=== PATIENT | female | born 1950 | race American Indian/Alaskan Native ===

== ENCOUNTER 2016-10-03 16:59 | Emergency (ER) | payer SELFPAY ==
[2016-10-03 18:29] VITALS: BP 134/91
--- NOTE | 2016-10-03 20:14 | XRay Report ---
FINAL REPORT PROCEDURE: XR FOOT 3 LT TECHNIQUE: LEFT foot radiographs, AP, lateral, and oblique views. CPT 66690 HISTORY: FOOT / ANKLE PAIN AND SWELLING COMPARISON: No prior studies are available for comparison. FINDINGS: Fracture (s) and/or Dislocation(s): None . Alignment: Normal . Joint space(s): Spurring of the talonavicular articulation. Soft tissues: Normal . Bone mineralization: Normal . Foreign bodies: None . Calcaneal spurring: Plantar heel spur. IMPRESSION: No fracture. There is spurring..
[2016-10-03] MEDS ORDERED: ULTRAM PO ONE (21:58)
--- NOTE | 2016-10-03 21:59 | Emergency Department Report ---
ED Lower Extremity HPI - General Chief Complaint: Extremity Injury, Lower Stated Complaint: HEADACHE/LEFT SIDE/FOOT PAIN Time Seen by Provider: 10/03/16 21:54 Source: patient Mode of arrival: Ambulatory Limitations: No Limitations - History of Present Illness MD Complaint: foot injury (foot pain chronic 3 yrs worse for past 3 months ) - Related Data Home Medications Medication Instructions Recorded Confirmed Last Taken Lisinopril/Hydrochlorothiazide 1 tab PO DAILY 06/19/14 06/19/14 06/19/14 [Zestoretic 20-25 mg] Previous Rx's Medication Instructions Recorded Last Taken Type Butalb/Acetamin/Caff 50-325-40 1 each PO Q4H PRN #12 tablet 11/07/13 Unknown Rx [Fioricet] Ibuprofen [Motrin 800 MG tab] 800 mg PO TID PRN #30 tablet 11/07/13 Unknown Rx traMADol [Ultram 50 MG tab] 50 mg PO Q6HR PRN #20 tablet 11/07/13 Unknown Rx amLODIPine [Norvasc] 5 mg PO DAILY #30 tab 06/19/14 Unknown Rx Metoprolol [Lopressor TAB] 25 mg PO BID #60 tablet 01/31/15 Unknown Rx HYDROcodone/APAP 5-325 [[place] 1 each PO Q6HR PRN #10 tablet 09/20/15 Unknown Rx 5-325 mg TAB] Lisinopril/Hydrochlorothiazide 1 tab PO QDAY #30 tab 09/20/15 Unknown Rx [Zestoretic 20-25 mg] predniSONE [Deltasone] 40 mg PO QDAY #5 tab 10/03/16 Unknown Rx traMADol [Ultram 50 MG tab] 50 mg PO Q8H PRN #15 tablet 10/03/16 Unknown Rx Allergies Allergy/AdvReac Type Severity Reaction Status Date / Time No Known Allergies Allergy Verified 10/03/16 18:23 ED Review of Systems ROS: Stated complaint: HEADACHE/LEFT SIDE/FOOT PAIN Other details as noted in HPI Constitutional: denies: chills, fever Eyes: denies: eye pain, eye discharge, vision change ENT: denies: ear pain, throat pain Respiratory: denies: cough, shortness of breath, wheezing Cardiovascular: denies: chest pain, palpitations Endocrine: no symptoms reported Gastrointestinal: denies: abdominal pain, nausea, diarrhea Genitourinary: denies: urgency, dysuria, discharge Musculoskeletal: myalgia, other (left foot pain ) Skin: denies: rash, lesions Neurological: denies: headache, weakness, paresthesias Psychiatric: denies: anxiety, depression Hematological/Lymphatic: denies: easy bleeding, easy bruising ED Past Medical Hx - Past Medical History Hx Hypertension: Yes Hx Congestive Heart Failure: No Hx Diabetes: No Hx Headaches / Migraines: Yes Hx Asthma: No Hx COPD: No Additional medical history: chronic back pain - Surgical History Past Surgical History?: No - Social History Smoking Status: Current Every Day Smoker Substance Use Type: Prescribed - Medications Home Medications: Home Medications Medication Instructions Recorded Confirmed Last Taken Type Butalb/Acetamin/Caff 50-325-40 1 each PO Q4H PRN #12 tablet 11/07/13 06/19/14 Unknown Rx [Fioricet] Ibuprofen [Motrin 800 MG tab] 800 mg PO TID PRN #30 tablet 11/07/13 06/19/14 Unknown Rx traMADol [Ultram 50 MG tab] 50 mg PO Q6HR PRN #20 tablet 11/07/13 06/19/14 Unknown Rx Lisinopril/Hydrochlorothiazide 1 tab PO DAILY 06/19/14 06/19/14 06/19/14 History [Zestoretic 20-25 mg] amLODIPine [Norvasc] 5 mg PO DAILY #30 tab 06/19/14 Unknown Rx Metoprolol [Lopressor TAB] 25 mg PO BID #60 tablet 01/31/15 Unknown Rx HYDROcodone/APAP 5-325 [[place] 1 each PO Q6HR PRN #10 tablet 09/20/15 Unknown Rx 5-325 mg TAB] Lisinopril/Hydrochlorothiazide 1 tab PO QDAY #30 tab 09/20/15 Unknown Rx [Zestoretic 20-25 mg] predniSONE [Deltasone] 40 mg PO QDAY #5 tab 10/03/16 Unknown Rx traMADol [Ultram 50 MG tab] 50 mg PO Q8H PRN #15 tablet 10/03/16 Unknown Rx ED Physical Exam - General Limitations: No Limitations General appearance: alert, in no apparent distress - Head Head exam: Present: atraumatic, normocephalic - Eye Eye exam: Present: normal appearance - ENT ENT exam: Present: mucous membranes moist - Neck Neck exam: Present: normal inspection - Respiratory Respiratory exam: Present: normal lung sounds bilaterally. Absent: respiratory distress - Cardiovascular Cardiovascular Exam: Present: regular rate, normal rhythm. Absent: systolic murmur, diastolic murmur, rubs, gallop - GI/Abdominal GI/Abdominal exam: Present: soft, normal bowel sounds - Rectal Rectal exam: Present: deferred - Expanded Lower Extremity Exam Right Upper Leg exam: Present: normal inspection, full ROM. Absent: tenderness Knee exam: Present: normal inspection, full ROM. Absent: tenderness Lower Leg exam: Present: normal inspection, full ROM. Absent: tenderness Ankle exam: Present: normal inspection, full ROM, tenderness, swelling Foot/Toe exam: Present: tenderness, swelling, calcaneal tenderness. Absent: abrasion, laceration, ecchymosis, deformity, crepidus, dislocation, erythema, amputation, puncture wound, foreign body, tenderness at base of 5th metatarsal, nail avulsion, subungual hematoma Neuro vascular tendon exam: Present: no vascular compromise. Absent: pulse deficit, abnormal cap refill, motor deficit, sensory deficit, tendon deficit ( negative daniels's test), extremity cold to touch, pallor, abnormal 2-point discrimination, decreased fine/light touch, foot drop, peroneal nerve deficit, significant pain with passive ROM of distal joint Gait: Positive: observed and limited by pain - Back Exam Back exam: Present: normal inspection - Neurological Exam Neurological exam: Present: alert, oriented X3 - Psychiatric Psychiatric exam: Present: normal affect, normal mood - Skin Skin exam: Present: warm, dry, intact, normal color. Absent: rash ED Course Vital Signs 10/03/16 18:26 Temperature 98.5 F Pulse Rate 83 Respiratory 17 Rate Blood Pressure 134/91 O2 Sat by Pulse 97 Oximetry ED Lower Extremity MDM - Radiology Data Radiology results: report reviewed left calcaneal heel spurs , mild soft tissue swelling - Medical Decision Making pt is a 65 y/o aaf with hx of htn, migraine headache, chronic foot pain x 3 yrs present for exacerbation of same over past 3 months pt denies new injury no fall no trauma, pain described as 5/10 aching heel radiating to left lateral ankle exam: mild swelling left lateral ankle , heel pain to palpation plantar region tenderness to palpation negative daniels's , ppepb+2 foot is not hot to touch pronation supination with mild pain reproduction, calcaneal palpation intensifies pain xray foot , calcaneal spurs , plan: tramadol , short burst steriods, follow up with podiatry for evaluation and treatment of heel spurs, ortho shoe for comfort, recommended heal/shoe inserts, pt remain ambulatory with minimal pain. Dx heel spurs, plantar fascities no symptoms of rupture pt verbalized agreement and understading with discharge plan. - Differential Diagnosis heel spurs, plantar fascitis Critical care attestation.: If time is entered above; I have spent that time in minutes in the direct care of this critically ill patient, excluding procedure time. ED Disposition Clinical Impression: Plantar fasciitis of left foot Disposition: - TO HOME OR SELFCARE Is pt being admited?: No Does the pt Need Aspirin: No Condition: Good Instructions: Plantar Fasciitis (ED) Additional Instructions: follow up with podiatry as directed Prescriptions: predniSONE [Deltasone] 40 mg PO QDAY #5 tab traMADol [Ultram 50 MG tab] 50 mg PO Q8H PRN #15 tablet PRN Reason: Pain Referrals: PRIMARY CARE, [Primary Care Provider] - 3-5 Days Time of Disposition: 22:11
[2016-10-03] MEDS ORDERED: DELTASONE PO ONE (22:00)
== END 2016-10-03 22:33 | disposition home or self-care (01) ==
LOC: ED 16:59
DX: M72.2 Plantar fascial fibromatosis (principal); G43.909 Migraine, unspecified, not intractable, without status migrainosus; G89.29 Other chronic pain; F17.200 Nicotine dependence, unspecified, uncomplicated; I10 Essential (primary) hypertension
CPT/HCPCS: 73630; 99283; J7512

== ENCOUNTER 2016-10-16 11:56 | Emergency (ER) | payer MEDICARE ==
[2016-10-16 12:52] LABS: Basophils % (Auto) 0.6 % (0.0-1.8); Eosinophils % (Auto) 1.1 % (0.0-4.3); Hematocrit 40.3 % (30.3-42.9); Hemoglobin 12.9 gm/dl (10.1-14.3); Mean Corpuscular HGB Conc 32 % (30-34); Mean Corpuscular Hemoglobin 30 pg (28-32); Mean Corpuscular Volume 94 fl (79-97); Platelet Count 279 K/mm3 (140-440); Red Blood Count 4.31 M/mm3 (3.65-5.03); Red Cell Distribution Width 13.3 % (13.2-15.2); White Blood Count 11.2 K/mm3 (4.5-11.0)
[2016-10-16 13:04] LABS: INR 0.9 (0.87-1.13)
[2016-10-16 13:05] LABS: Partial Thromboplastin Time 29.6 Sec. (24.2-36.6)
[2016-10-16 13:12] LABS: Anion Gap 19 mmol/L; Blood Urea Nitrogen 22 mg/dL (7-17); Calcium 9.8 mg/dL (8.4-10.2); Carbon Dioxide 25 mmol/L (22-30); Chloride 103.1 mmol/L (98-107); Glucose 97 mg/dL (65-100); Potassium 4.5 mmol/L (3.6-5.0); Sodium 143 mmol/L (137-145)
--- NOTE | 2016-10-16 14:17 | Cat Scan Report ---
CT HEAD WITHOUT CONTRAST: HISTORY: Headache. Serial contiguous axial images were obtained through the cranium. Intravenous contrast material was not administered. The ventricles are normal in size and appearance. There is no mass effect or midline shift. No areas of abnormally increased or decreased attenuation are seen. No mass lesion is seen. The mastoid air cells and visualized portions of the sinuses are normal. IMPRESSION: Cranial CT scan within normal limits. No change since 09/20/15.
[2016-10-16] MEDS ORDERED: APRESOLINE IV ONE (16:58)
[2016-10-16] MEDS ORDERED: MORPHINE IV ONE ×2 (16:58→20:11)
[2016-10-16] MEDS ORDERED: ZOFRAN IV ONE (16:58)
[2016-10-16 17:26] VITALS: BP 161/108
--- NOTE | 2016-10-16 18:12 | Cat Scan Report ---
FINAL REPORT PROCEDURE: CT HEAD/BRAIN WO CON TECHNIQUE: Computerized tomography of the head was performed without contrast material. HISTORY: Headache and hypertension COMPARISON: 09/20/2015 FINDINGS: No CT evidence of intracranial mass, hemorrhage, acute territorial infarction, or hydrocephalus. The intracranial arteries are symmetric in density. The calvarium is intact. Visualized paranasal sinuses and mastoids are aerated. IMPRESSION: No CT evidence of acute abnormality
--- NOTE | 2016-10-16 18:33 | Cat Scan Report ---
FINAL REPORT PROCEDURE: CT ABDOMEN PELVIS WO CON TECHNIQUE: Computerized axial tomography of the abdomen and pelvis was performed without intravenous contrast. This study is performed without intravascular contrast material and its sensitivity for abdominal and pelvic pathology, including neoplasms, inflammation, abscess, free fluid, thrombosis, arterial dissection and infarction, is reduced compared with a contrast enhanced study. HISTORY: Abdominal pain COMPARISON: No prior studies are available for comparison. FINDINGS: Visualized lower thorax: No acute abnormality. Liver: There are 2 circumscribed low-density lesions in the liver, compatible with cysts. Spleen: Normal size and attenuation. Gallbladder and biliary system: Gallbladder is present. The common bile duct appears dilated, measuring up to 12 millimeters in caliber. Pancreas: Normal. Adrenals: There is a low-attenuation 18 millimeter left adrenal nodule, which is likely benign. Kidneys: Bilateral renal low-density lesions are likely related to cysts. No hydronephrosis or urolithiasis. GI tract: There is sigmoid diverticulosis. No acute inflammation is seen. The appendix is normal in appearance. No bowel obstruction or acute inflammation is seen. Lymph nodes and mesentery: Normal. Vasculature: Normal. Bladder: Normal. Reproductive organs: Grossly unremarkable. Peritoneum: No free fluid. Musculoskeletal structures: Significant right hip joint osteoarthritis. Degenerative disc changes and facet arthritic changes of the lumbar spine. Other: None. IMPRESSION: No hydronephrosis or urolithiasis. No acute inflammatory process is seen. Common bile duct appears dilated. Further evaluation with ultrasound could be obtained. Correlate with lab values
[2016-10-16] MEDS ORDERED: NACL 0.9% 1000 ML 1,000 ML IV ONE (20:11)
[2016-10-16] MEDS ORDERED: REGLAN IV ONE (20:11)
--- NOTE | 2016-10-16 20:16 | Emergency Department Report ---
ED Headache HPI - General Chief Complaint: Headache Stated Complaint: HEADACHE Time Seen by Provider: 10/16/16 19:57 Source: patient Exam Limitations: no limitations - History of Present Illness Initial Comments: 65-year-old female here with complaint of 2 issues. #1 is abdominal pain which she says she's had over the course of the last week. She describes it as keys pain tender all over her abdomen she's had some vomiting. The pain does not radiate anywhere she has had the pain before. No fevers or chills. Her second complaint is a headache for which she's had for 1 week as well. She was recently treated with oral oxycodone which seemed to help slightly but it the headache has returned. She has no neck stiffness or photophobia. Timing/Duration: 1 week Quality: moderate Head Injury Location: global Recent Head Trauma: no recent headache/trauma, chronic headaches Associated Symptoms: denies: confusion, fatigue, facial pain, loss of consciousness, nausea/vomiting, nasal drainage, seizures, sinus infection, stiff neck, vision changes Allergies/Adverse Reactions: Allergies No Known Allergies Allergy (Verified 10/03/16 18:23) Home Medications: Ambulatory Orders Ibuprofen [Motrin 800 MG tab] 800 mg PO TID PRN #30 tablet 11/07/13 traMADol [Ultram 50 MG tab] 50 mg PO Q6HR PRN #20 tablet 11/07/13 Lisinopril/Hydrochlorothiazide [Zestoretic 20-25 mg] 1 tab PO DAILY 06/19/14 amLODIPine [Norvasc] 5 mg PO DAILY #30 tab 06/19/14 Metoprolol [Lopressor TAB] 25 mg PO BID #60 tablet 01/31/15 HYDROcodone/APAP 5-325 [[place] 5-325 mg TAB] 1 each PO Q6HR PRN #10 tablet Lisinopril/Hydrochlorothiazide [Zestoretic 20-25 mg] 1 tab PO QDAY #30 tab 09/19 predniSONE [Deltasone] 40 mg PO QDAY #5 tab 10/03/16 traMADol [Ultram 50 MG tab] 50 mg PO Q8H PRN #15 tablet 10/03/16 Butalb/Acetamin/Caff 50-325-40 [Fioricet] 1 each PO Q4H PRN #12 tablet 10/16/16 Diclofenac Sodium 75 mg PO Q12HR PRN #30 tab 10/16/16 Ondansetron [Zofran TAB] 4 mg PO Q8HR PRN #10 tablet 10/16/16 ED Review of Systems ROS: Stated complaint: HEADACHE Other details as noted in HPI Constitutional: denies: chills, fever, malaise, weakness Eyes: denies: eye pain, eye discharge, vision change ENT: denies: ear pain, throat pain Respiratory: denies: cough, shortness of breath, wheezing Cardiovascular: denies: chest pain, palpitations Endocrine: no symptoms reported Gastrointestinal: abdominal pain, vomiting. denies: nausea, diarrhea Genitourinary: denies: urgency, dysuria, discharge Musculoskeletal: denies: back pain, joint swelling, arthralgia Skin: denies: rash, lesions Neurological: headache. denies: weakness, numbness, paresthesias, confusion Psychiatric: denies: anxiety, depression Hematological/Lymphatic: denies: easy bleeding, easy bruising ED Past Medical Hx - Past Medical History Previous Medical History?: Yes Hx Hypertension: Yes Hx Congestive Heart Failure: No Hx Diabetes: No Hx Headaches / Migraines: Yes Hx Asthma: No Hx COPD: No Additional medical history: chronic back pain - Surgical History Past Surgical History?: No - Family History Family history: hypertension - Social History Smoking Status: Current Every Day Smoker Substance Use Type: Alcohol, Prescribed - Medications Home Medications: Home Medications Medication Instructions Recorded Confirmed Last Taken Type Ibuprofen [Motrin 800 MG tab] 800 mg PO TID PRN #30 tablet 11/07/13 06/19/14 Unknown Rx traMADol [Ultram 50 MG tab] 50 mg PO Q6HR PRN #20 tablet 11/07/13 06/19/14 Unknown Rx Lisinopril/Hydrochlorothiazide 1 tab PO DAILY 06/19/14 06/19/14 06/19/14 History [Zestoretic 20-25 mg] amLODIPine [Norvasc] 5 mg PO DAILY #30 tab 06/19/14 Unknown Rx Metoprolol [Lopressor TAB] 25 mg PO BID #60 tablet 01/31/15 Unknown Rx HYDROcodone/APAP 5-325 [[place] 1 each PO Q6HR PRN #10 tablet 09/20/15 Unknown Rx 5-325 mg TAB] Lisinopril/Hydrochlorothiazide 1 tab PO QDAY #30 tab 09/20/15 Unknown Rx [Zestoretic 20-25 mg] predniSONE [Deltasone] 40 mg PO QDAY #5 tab 10/03/16 Unknown Rx traMADol [Ultram 50 MG tab] 50 mg PO Q8H PRN #15 tablet 10/03/16 Unknown Rx Butalb/Acetamin/Caff 50-325-40 1 each PO Q4H PRN #12 tablet 10/16/16 Unknown Rx [Fioricet] Diclofenac Sodium 75 mg PO Q12HR PRN #30 tab 10/16/16 Unknown Rx Ondansetron [Zofran TAB] 4 mg PO Q8HR PRN #10 tablet 10/16/16 Unknown Rx ED Physical Exam - General Limitations: No Limitations General appearance: alert, in no apparent distress - Head Head exam: Present: atraumatic, normocephalic - Eye Eye exam: Present: normal appearance - ENT ENT exam: Present: mucous membranes moist - Neck Neck exam: Present: normal inspection - Respiratory Respiratory exam: Present: normal lung sounds bilaterally. Absent: respiratory distress - Cardiovascular Cardiovascular Exam: Present: regular rate, normal rhythm. Absent: systolic murmur, diastolic murmur, rubs, gallop - GI/Abdominal GI/Abdominal exam: Present: soft, distended, tenderness (mild tenderness diffusely), normal bowel sounds. Absent: guarding, rebound - Extremities Exam Extremities exam: Present: normal inspection - Back Exam Back exam: Present: normal inspection - Neurological Exam Neurological exam: Present: alert, oriented X3 - Psychiatric Psychiatric exam: Present: normal affect, normal mood - Skin Skin exam: Present: warm, dry, intact, normal color. Absent: rash ED Course Vital Signs 10/16/16 10/16/16 10/16/16 11:59 16:41 17:19 Temperature 98.2 F Pulse Rate 95 H 92 H 84 Respiratory 20 16 Rate Blood Pressure 175/109 191/107 Blood Pressure 191/107 [Left] O2 Sat by Pulse 100 99 Oximetry 10/16/16 10/16/16 10/16/16 17:20 17:25 20:15 Temperature Pulse Rate 84 Respiratory 16 16 16 Rate Blood Pressure Blood Pressure 161/108 [Left] O2 Sat by Pulse 100 96 Oximetry ED Medical Decision Making - Lab Data Result diagrams: 10/16/16 12:36 10/16/16 12:36 Laboratory Results - last 24 hr 10/16/16 10/16/16 10/16/16 12:36 12:36 12:36 WBC 11.2 H RBC 4.31 Hgb 12.9 Hct 40.3 MCV 94 MCH 30 MCHC 32 RDW 13.3 Plt Count 279 Lymph % (Auto) 18.6 [place] % (Auto) 6.9 Eos % (Auto) 1.1 Baso % (Auto) 0.6 Lymph # 2.1 [place] # 0.8 Eos # 0.1 Baso # 0.1 Seg Neutrophils % 72.8 H Seg Neutrophils # 8.2 H PT 12.0 L INR 0.90 APTT 29.6 Thrombin Time Sodium 143 Potassium 4.5 Chloride 103.1 Carbon Dioxide 25 Anion Gap 19 BUN 22 H Creatinine 1.1 Estimated GFR > 60 BUN/Creatinine Ratio 20.00 Glucose 97 Calcium 9.8 Troponin T < 0.010 Lipase 10/16/16 10/16/16 12:36 12:36 WBC RBC Hgb Hct MCV MCH MCHC RDW Plt Count Lymph % (Auto) [place] % (Auto) Eos % (Auto) Baso % (Auto) Lymph # [place] # Eos # Baso # Seg Neutrophils % Seg Neutrophils # PT INR APTT Thrombin Time 13.7 L Sodium Potassium Chloride Carbon Dioxide Anion Gap BUN Creatinine Estimated GFR BUN/Creatinine Ratio Glucose Calcium Troponin T Lipase 36 - Medical Decision Making Patient is a 65-year-old female here with headache and abdominal pain. Rectal exam is unremarkable. She does have a distended abdomen with mild tenderness but is otherwise well-appearing. White count is 11.2 but the rest of her workup is essentially negative. She has a negative head CT and a negative abdominal CT for acute pathology. She is nontender in the right upper quadrant and the findings on CT are inconsistent with her complaints. Pain improved with meds and fluids. Plan to discharge home. Portions of this chart were dictated with dictation software. There may be dictation errors contained within this note. Critical care attestation.: If time is entered above; I have spent that time in minutes in the direct care of this critically ill patient, excluding procedure time. ED Disposition Clinical Impression: Abdominal pain, Chronic headache Disposition: DC-01 TO HOME OR SELFCARE Is pt being admited?: No Does the pt Need Aspirin: No Condition: Stable Instructions: Acute Headache (ED), Abdominal Pain (ED) Prescriptions: Butalb/Acetamin/Caff 50-325-40 [Fioricet] 1 each PO Q4H PRN #12 tablet PRN Reason: Headache Diclofenac Sodium 75 mg PO Q12HR PRN #30 tab PRN Reason: Pain Ondansetron [Zofran TAB] 4 mg PO Q8HR PRN #10 tablet PRN Reason: Nausea Referrals: PRIMARY CARE,MD [Primary Care Provider] - 3-5 Days
== END 2016-10-16 22:17 | disposition home or self-care (01) ==
LOC: ED 11:56
DX: R10.9 Unspecified abdominal pain (principal); R51 Headache; G89.29 Other chronic pain; I10 Essential (primary) hypertension; G43.909 Migraine, unspecified, not intractable, without status migrainosus; F17.200 Nicotine dependence, unspecified, uncomplicated
CPT/HCPCS: 36415; 70450; 74176; 80048; 82962; 83690; 84484; 85025; 85610; 85670; 85730; 93005; 93010; 96361; 96374; 96375; 96376; 99285; J0360; J2270; J2405; J2765; J7030

== ENCOUNTER 2016-11-07 10:40 | Emergency (ER) | payer MEDICARE ==
[2016-11-07 11:54] LABS: Basophils % (Auto) 0.6 % (0.0-1.8); Eosinophils % (Auto) 0.7 % (0.0-4.3); Hematocrit 41.2 % (30.3-42.9); Hemoglobin 13.9 gm/dl (10.1-14.3); Mean Corpuscular HGB Conc 34 % (30-34); Mean Corpuscular Hemoglobin 31 pg (28-32); Mean Corpuscular Volume 94 fl (79-97); Platelet Count 284 K/mm3 (140-440); Red Blood Count 4.41 M/mm3 (3.65-5.03); White Blood Count 8.5 K/mm3 (4.5-11.0)
[2016-11-07 12:15] LABS: Alanine Aminotransferase 9 units/L (7-56); Albumin/Globulin Ratio 1.1 %; Alkaline Phosphatase 74 units/L (35-129); Anion Gap 16 mmol/L; BUN/Creatinine Ratio 12.22; Blood Urea Nitrogen 11 mg/dL (7-17); Calcium 10.3 mg/dL (8.4-10.2); Carbon Dioxide 32 mmol/L (22-30); Chloride 96.9 mmol/L (98-107); Glucose 107 mg/dL (65-100); Lipase 26 units/L (13-60); Potassium 4.4 mmol/L (3.6-5.0); Sodium 140 mmol/L (137-145); Total Protein 7.6 g/dL (6.3-8.2)
[2016-11-07 13:20] LABS: Bacteria,Urine 1+ /HPF (Negative); Bilirubin,Urine NEG (Negative); Blood,Urine NEG (Negative); Ketones,Urine NEG (Negative); Leukocyte Esterase,Urine NEG (Negative); Nitrite,Urine NEG (Negative)
[2016-11-07] MEDS ORDERED: PERCOCET 5/325 PO ONE (16:26)
--- NOTE | 2016-11-07 16:33 | Emergency Department Report ---
ED General Adult HPI - General Chief complaint: Back Pain/Injury Stated complaint: BACAK PAIN / SWOLLEN FEET Time Seen by Provider: 11/07/16 15:06 Source: patient Mode of arrival: Ambulatory Limitations: No Limitations - History of Present Illness Initial comments: Patient is a 66-year-old female who presents with lower back pain has been going on for the last 4 weeks. She states that the pain is a 7 out of 10 working and walking makes of back pain nothing makes the pain better. Patient' s pain does not radiate. Patient has also been trying pain to take over-the- counter pain medicines for her back pain. Patient also reports foot pain. Patient denies any trauma no LOC. She reports that she came to the ED because the pain has not gotten any better and she is having a hard time sleeping. Severity scale (0 -10): 8 - Related Data Home Medications Medication Instructions Recorded Confirmed Last Taken Lisinopril/Hydrochlorothiazide 1 tab PO DAILY 06/19/14 06/19/14 06/19/14 [Zestoretic 20-25 mg] Previous Rx's Medication Instructions Recorded Last Taken Type Ibuprofen [Motrin 800 MG tab] 800 mg PO TID PRN #30 tablet 11/07/13 Unknown Rx amLODIPine [Norvasc] 5 mg PO DAILY #30 tab 06/19/14 Unknown Rx Metoprolol [Lopressor TAB] 25 mg PO BID #60 tablet 01/31/15 Unknown Rx HYDROcodone/APAP 5-325 [[place] 1 each PO Q6HR PRN #10 tablet 09/20/15 Unknown Rx 5-325 mg TAB] Lisinopril/Hydrochlorothiazide 1 tab PO QDAY #30 tab 09/20/15 Unknown Rx [Zestoretic 20-25 mg] predniSONE [Deltasone] 40 mg PO QDAY #5 tab 10/03/16 Unknown Rx traMADol [Ultram 50 MG tab] 50 mg PO Q8H PRN #15 tablet 10/03/16 Unknown Rx Butalb/Acetamin/Caff 50-325-40 1 each PO Q4H PRN #12 tablet 10/16/16 Unknown Rx [Fioricet] Diclofenac Sodium 75 mg PO Q12HR PRN #30 tab 10/16/16 Unknown Rx Ondansetron [Zofran TAB] 4 mg PO Q8HR PRN #10 tablet 10/16/16 Unknown Rx traMADol [Ultram 50 MG tab] 50 mg PO Q6HR PRN #20 tablet 11/07/16 Unknown Rx Allergies Allergy/AdvReac Type Severity Reaction Status Date / Time No Known Allergies Allergy Verified 11/07/16 11:14 ED Review of Systems ROS: Stated complaint: BACAK PAIN / SWOLLEN FEET Other details as noted in HPI Constitutional: denies: chills, fever Eyes: denies: eye pain, eye discharge, vision change ENT: denies: ear pain, throat pain Respiratory: denies: cough, shortness of breath, wheezing Cardiovascular: denies: chest pain, palpitations Endocrine: no symptoms reported Gastrointestinal: denies: abdominal pain, nausea, diarrhea Genitourinary: denies: urgency, dysuria, discharge Musculoskeletal: as per HPI, other (left flank pain ) Skin: denies: rash, lesions Neurological: denies: headache, weakness, paresthesias Psychiatric: denies: anxiety, depression Hematological/Lymphatic: denies: easy bleeding, easy bruising ED Past Medical Hx - Past Medical History Hx Hypertension: Yes Hx Congestive Heart Failure: No Hx Diabetes: No Hx Headaches / Migraines: Yes Hx Asthma: No Hx COPD: No Additional medical history: chronic back pain - Surgical History Past Surgical History?: No - Social History Smoking Status: Former Smoker Substance Use Type: None - Medications Home Medications: Home Medications Medication Instructions Recorded Confirmed Last Taken Type Ibuprofen [Motrin 800 MG tab] 800 mg PO TID PRN #30 tablet 11/07/13 06/19/14 Unknown Rx Lisinopril/Hydrochlorothiazide 1 tab PO DAILY 06/19/14 06/19/14 06/19/14 History [Zestoretic 20-25 mg] amLODIPine [Norvasc] 5 mg PO DAILY #30 tab 06/19/14 Unknown Rx Metoprolol [Lopressor TAB] 25 mg PO BID #60 tablet 01/31/15 Unknown Rx HYDROcodone/APAP 5-325 [[place] 1 each PO Q6HR PRN #10 tablet 09/20/15 Unknown Rx 5-325 mg TAB] Lisinopril/Hydrochlorothiazide 1 tab PO QDAY #30 tab 09/20/15 Unknown Rx [Zestoretic 20-25 mg] predniSONE [Deltasone] 40 mg PO QDAY #5 tab 10/03/16 Unknown Rx traMADol [Ultram 50 MG tab] 50 mg PO Q8H PRN #15 tablet 10/03/16 Unknown Rx Butalb/Acetamin/Caff 50-325-40 1 each PO Q4H PRN #12 tablet 10/16/16 Unknown Rx [Fioricet] Diclofenac Sodium 75 mg PO Q12HR PRN #30 tab 10/16/16 Unknown Rx Ondansetron [Zofran TAB] 4 mg PO Q8HR PRN #10 tablet 10/16/16 Unknown Rx traMADol [Ultram 50 MG tab] 50 mg PO Q6HR PRN #20 tablet 11/07/16 Unknown Rx ED Physical Exam - General Limitations: No Limitations General appearance: alert - Head Head exam: Present: atraumatic, normocephalic - Eye Eye exam: Present: normal appearance, PERRL, EOMI - ENT ENT exam: Present: normal exam - Neck Neck exam: Present: normal inspection - Respiratory Respiratory exam: Present: normal lung sounds bilaterally - Cardiovascular Cardiovascular Exam: Present: regular rate - GI/Abdominal GI/Abdominal exam: Present: soft - Extremities Exam Extremities exam: Present: normal inspection - Back Exam Back exam: Present: normal inspection, other (tenderness to palpation ) - Neurological Exam Neurological exam: Present: alert, oriented X3 - Psychiatric Psychiatric exam: Present: normal affect, normal mood - Skin Skin exam: Present: warm, dry ED Course Vital Signs 11/07/16 11/07/16 11/07/16 11:07 12:53 13:00 Temperature 98.2 F Pulse Rate 83 Respiratory 18 Rate Blood Pressure 180/100 140/88 130/84 Blood Pressure [Left] O2 Sat by Pulse 95 96 Oximetry 11/07/16 11/07/16 11/07/16 13:05 13:06 14:00 Temperature 98.2 F Pulse Rate 90 Respiratory 16 16 Rate Blood Pressure 128/81 Blood Pressure 140/88 [Left] O2 Sat by Pulse 98 98 98 Oximetry 11/07/16 11/07/16 16:45 16:50 Temperature Pulse Rate 66 Respiratory 16 16 Rate Blood Pressure Blood Pressure 158/80 [Left] O2 Sat by Pulse 100 Oximetry - Reevaluation(s) Reevaluation #1: 11/07/16 18:53 Patient's flank pain has resolved it is a 0/10. Discussed with patient on with primary care provider she agrees the plan we'll send patient home with oral analgesic medication. ED Medical Decision Making - Lab Data Result diagrams: 11/07/16 11:36 11/07/16 11:36 - Medical Decision Making Cdx: Musculoskeletal pain Ddx: Renal colic, UTI, pancreatitis Will get CBC, CMP, UA, CT scan, pain control CT scan shows hepatic and renal cysts discussed with patient. Told patient to follow up with primary care provider. Patient agrees with plan. We'll send patient home with pain medication. Critical Care Time: No Critical care attestation.: If time is entered above; I have spent that time in minutes in the direct care of this critically ill patient, excluding procedure time. ED Disposition Clinical Impression: Left flank pain, chronic Disposition: DC-01 TO HOME OR SELFCARE Is pt being admited?: No Does the pt Need Aspirin: No Condition: Good Instructions: Flank Pain (ED) Additional Instructions: Return to emergency Department if pain does not subside. Please follow up with the primary care provider. Prescriptions: traMADol [Ultram 50 MG tab] 50 mg PO Q6HR PRN #20 tablet PRN Reason: Pain Referrals: PRIMARY CARE, [Primary Care Provider] - 3-5 Days Time of Disposition: 18:59
[2016-11-07 17:10] VITALS: BP 158/80
--- NOTE | 2016-11-07 17:48 | Cat Scan Report ---
FINAL REPORT PROCEDURE: CT abdomen and pelvis without contrast. TECHNIQUE: Computerized axial tomography of the abdomen and pelvis was performed without intravenous contrast. This study is performed without intravascular contrast material and its sensitivity for abdominal and pelvic pathology, including neoplasms, inflammation, abscess, free fluid, thrombosis, arterial dissection and infarction, is reduced compared with a contrast enhanced study. HISTORY: Flank pain. COMPARISON: CT abdomen and pelvis 10/16/2016. FINDINGS: There are small cysts in both lung bases. There are no pleural effusions. The heart size is normal. There is a focal mass of low attenuation within the right lobe of the liver. This measures 2.1 centimeters x 1.5 centimeters in cross-section. It is fairly sharply defined and probably represents a cyst. There are 2 additional smaller focal areas of diminished attenuation which may also represent cysts. The gallbladder is present. There is mild intrahepatic and moderate extrahepatic biliary dilatation. This could be further evaluated by ERCP or MRCP if clinically warranted. The pancreas is grossly normal. The spleen is unremarkable. There is mild thickening of the adrenal glands. Both kidneys appear normal in size and configuration. There is a small cortical mass arising posteriorly from the left kidney. There is also a small cortical mass arising superiorly from the right kidney. These masses may both represent simple cysts, but are incompletely evaluated on this unenhanced study. The abdominal aorta has a normal caliber. There is no retroperitoneal adenopathy. A normal appendix is visible. There are a few diverticula in the sigmoid colon. The bladder, uterus and adnexal regions are unremarkable. The regional skeleton appears intact. IMPRESSION: Small bibasilar lung cysts. Probable small hepatic cysts. Small bilateral renal masses which may represent cysts. Biliary dilatation. Mild sigmoid diverticulosis.
== END 2016-11-07 19:49 | disposition home or self-care (01) ==
LOC: ED 10:40
DX: G89.29 Other chronic pain (principal); R10.9 Unspecified abdominal pain; M54.5 Low back pain; I10 Essential (primary) hypertension; G43.909 Migraine, unspecified, not intractable, without status migrainosus; Z87.891 Personal history of nicotine dependence
CPT/HCPCS: 36415; 74176; 80053; 81001; 83690; 85025; 99284

== ENCOUNTER 2016-11-20 17:49 | Emergency (ER) | payer MEDICARE ==
[2016-11-20 19:53] LABS: Basophils % (Auto) 0.6 % (0.0-1.8); Eosinophils % (Auto) 0.7 % (0.0-4.3); Hematocrit 41.4 % (30.3-42.9); Hemoglobin 13.5 gm/dl (10.1-14.3); Mean Corpuscular HGB Conc 33 % (30-34); Mean Corpuscular Hemoglobin 31 pg (28-32); Mean Corpuscular Volume 94 fl (79-97); Platelet Count 260 K/mm3 (140-440); Red Blood Count 4.43 M/mm3 (3.65-5.03); Red Cell Distribution Width 14.2 % (13.2-15.2); White Blood Count 9.4 K/mm3 (4.5-11.0)
[2016-11-20 20:16] LABS: Alanine Aminotransferase 8 units/L (7-56); Albumin 3.9 g/dL (3.9-5); Albumin/Globulin Ratio 1.4 %; Alkaline Phosphatase 63 units/L (35-129); Anion Gap 16 mmol/L; Blood Urea Nitrogen 12 mg/dL (7-17); Calcium 9.3 mg/dL (8.4-10.2); Carbon Dioxide 35 mmol/L (22-30); Chloride 92.8 mmol/L (98-107); Glucose 137 mg/dL (65-100); Lipase 22 units/L (13-60); Potassium 3.2 mmol/L (3.6-5.0); Sodium 141 mmol/L (137-145); Total Protein 6.7 g/dL (6.3-8.2)
[2016-11-20 22:06] LABS: Bilirubin,Urine NEG (Negative); Blood,Urine NEG (Negative); Ketones,Urine NEG (Negative); Leukocyte Esterase,Urine NEG (Negative); Nitrite,Urine NEG (Negative); Protein,Urine <15 mg/dL mg/dL (Negative); WBC,Urine < 1.0 /HPF (0.0-6.0)
[2016-11-21] MEDS ORDERED: DILAUDID IV ONE (02:10)
[2016-11-21] MEDS ORDERED: ZOFRAN IV ONE (02:10)
[2016-11-21] MEDS ORDERED: K-DUR PO ONE (02:10)
[2016-11-21] MEDS ORDERED: TORADOL IV ONE (02:10)
--- NOTE | 2016-11-21 02:33 | Emergency Department Report ---
ED Abdominal Pain HPI - General Chief Complaint: Abdominal Pain Stated Complaint: ABDOMINAL/BACK PAIN Time Seen by Provider: 11/21/16 01:43 Source: patient, old records reviewed Mode of arrival: Ambulatory Limitations: No Limitations - History of Present Illness Initial Comments: 66-year-old female with a past medical history of headaches, hypertension, and chronic back pain presents to the hospital complains of left flank pain radiating to the left abdomen. Pain has been going on for at least 1 month. It is aching, intermittent, rated 8/10 in intensity. Increased to 10/10 today. Patient has been seen and evaluated in the ED on October 16 in November 07 for the same pain and had a CT abdomen and pelvis is time that did not reveal any acute abnormality. Patient had nausea with one episode of vomiting today. Denies diarrhea, constipation, fevers, hematuria, or dysuria. Patient received tramadol during her last visit here states it did not help. She then went to [place] and received Percocet 5 mg 12 tablets and states that helped her pain but she ran out of medication. - Related Data Home Medications Medication Instructions Recorded Confirmed Last Taken Lisinopril/Hydrochlorothiazide 1 tab PO DAILY 06/19/14 11/21/16 06/19/14 [Zestoretic 20-25 mg] Previous Rx's Medication Instructions Recorded Last Taken Type Ibuprofen [Motrin 800 MG tab] 800 mg PO TID PRN #30 tablet 11/07/13 Unknown Rx amLODIPine [Norvasc] 5 mg PO DAILY #30 tab 06/19/14 Unknown Rx Metoprolol [Lopressor TAB] 25 mg PO BID #60 tablet 01/31/15 Unknown Rx predniSONE [Deltasone] 40 mg PO QDAY #5 tab 10/03/16 Unknown Rx traMADol [Ultram 50 MG tab] 50 mg PO Q8H PRN #15 tablet 10/03/16 Unknown Rx Butalb/Acetamin/Caff 50-325-40 1 each PO Q4H PRN #12 tablet 10/16/16 Unknown Rx [Fioricet] Diclofenac Sodium 75 mg PO Q12HR PRN #30 tab 10/16/16 Unknown Rx Ondansetron [Zofran TAB] 4 mg PO Q8HR PRN #10 tablet 10/16/16 Unknown Rx traMADol [Ultram 50 MG tab] 50 mg PO Q6HR PRN #20 tablet 11/07/16 Unknown Rx HYDROcodone/APAP 5-325 [[place] 1 each PO Q6HR PRN #20 tablet 11/21/16 Unknown Rx 5-325 mg TAB] Ondansetron [Zofran Odt] 4 mg PO Q8HR PRN #20 tab.rapdis 11/21/16 Unknown Rx Allergies Allergy/AdvReac Type Severity Reaction Status Date / Time No Known Allergies Allergy Verified 11/07/16 11:14 ED Review of Systems ROS: Stated complaint: ABDOMINAL/BACK PAIN Other details as noted in HPI Comment: All other systems reviewed and negative Other: Constitutional: No fevers chills Eyes: No eye pain visual changes ENT: No ear pain or throat pain Neck: Denies pain Respiratory: Denies cough wheezing shortness of breath a Cardiovascular: Denies chest pain, palpitations, syncope GI: As per HPI : Denies dysuria, urinary frequency, or urgency Musculoskeletal: As per HPI Skin: Denies rash, lesions, erythema Neurologic: Denies headache, numbness, weakness Psychiatric: Denies suicidal ideation, hallucinations ED Past Medical Hx - Past Medical History Previous Medical History?: Yes Hx Hypertension: Yes Hx Congestive Heart Failure: No Hx Diabetes: No Hx Headaches / Migraines: Yes Hx Asthma: No Hx COPD: No Additional medical history: chronic back pain - Surgical History Past Surgical History?: No - Social History Smoking Status: Never Smoker Substance Use Type: None - Medications Home Medications: Home Medications Medication Instructions Recorded Confirmed Last Taken Type Ibuprofen [Motrin 800 MG tab] 800 mg PO TID PRN #30 tablet 11/07/13 11/21/16 Unknown Rx Lisinopril/Hydrochlorothiazide 1 tab PO DAILY 06/19/14 11/21/16 06/19/14 History [Zestoretic 20-25 mg] amLODIPine [Norvasc] 5 mg PO DAILY #30 tab 06/19/14 11/21/16 Unknown Rx Metoprolol [Lopressor TAB] 25 mg PO BID #60 tablet 01/31/15 11/21/16 Unknown Rx predniSONE [Deltasone] 40 mg PO QDAY #5 tab 10/03/16 11/21/16 Unknown Rx traMADol [Ultram 50 MG tab] 50 mg PO Q8H PRN #15 tablet 10/03/16 11/21/16 Unknown Rx Butalb/Acetamin/Caff 50-325-40 1 each PO Q4H PRN #12 tablet 10/16/16 11/21/16 Unknown Rx [Fioricet] Diclofenac Sodium 75 mg PO Q12HR PRN #30 tab 10/16/16 11/21/16 Unknown Rx Ondansetron [Zofran TAB] 4 mg PO Q8HR PRN #10 tablet 10/16/16 11/21/16 Unknown Rx traMADol [Ultram 50 MG tab] 50 mg PO Q6HR PRN #20 tablet 11/07/16 11/21/16 Unknown Rx HYDROcodone/APAP 5-325 [[place] 1 each PO Q6HR PRN #20 tablet 11/21/16 Unknown Rx 5-325 mg TAB] Ondansetron [Zofran Odt] 4 mg PO Q8HR PRN #20 tab.rapdis 11/21/16 Unknown Rx ED Physical Exam - General Limitations: No Limitations - Other Other exam information: General: No limitations, patient is alert in no acute distress Head exam: Atraumatic, normocephalic Eyes exam: Normal appearance, pupils equal reactive to light, extraocular movements intact ENT: Moist mucous membrane, normal oropharynx Neck exam: Normal inspection, full range of motion, no meningismus nontender Respiratory exam: Clear to auscultation bilateral, no wheezes, rales, crackles Cardiovascular: Normal rate and rhythm, normal heart sounds Abdomen: Soft, nondistended, left lower quadrant and left mid abdomen tenderness , with normal bowel sounds, no rebound, or guarding Extremity: Full range of motion normal inspection no deformity Back: Normal Inspection, full range of motion, left flank tenderness Neurologic: Alert, oriented x3, cranial nerves intact, no motor or sensory deficit Psychiatric: normal affect, normal mood Skin: Warm, dry, intact ED Course Vital Signs 11/20/16 11/21/16 11/21/16 19:31 00:21 00:30 Temperature 98.4 F Pulse Rate 106 H 93 H 86 Respiratory 20 11 L 12 Rate Blood Pressure 138/99 138/85 O2 Sat by Pulse 97 98 98 Oximetry 11/21/16 11/21/16 11/21/16 00:41 00:51 01:00 Temperature Pulse Rate 86 90 88 Respiratory 8 L 10 L 11 L Rate Blood Pressure 138/85 138/85 146/87 O2 Sat by Pulse 97 97 Oximetry 11/21/16 11/21/16 11/21/16 01:11 01:21 01:30 Temperature Pulse Rate 85 83 78 Respiratory 13 14 10 L Rate Blood Pressure 146/87 146/87 153/89 O2 Sat by Pulse 96 95 96 Oximetry 11/21/16 11/21/16 11/21/16 01:41 01:51 02:00 Temperature Pulse Rate 77 78 77 Respiratory 18 13 10 L Rate Blood Pressure 153/89 153/89 147/88 O2 Sat by Pulse 94 93 97 Oximetry 11/21/16 02:30 Temperature Pulse Rate 82 Respiratory 12 Rate Blood Pressure 140/81 O2 Sat by Pulse 98 Oximetry - Reevaluation(s) Reevaluation #1: 11/21/16 02:31 Dilaudid, Toradol, Zofran, and potassium ordered Reevaluation #2: 11/21/16 04:21 Patient reports feeling much better with ED treatment and feels well enough to go home ED Medical Decision Making - Lab Data Result diagrams: 11/20/16 19:40 11/20/16 19:40 Lab Results 11/20/16 11/20/16 11/20/16 Range/Units 19:40 19:40 21:30 WBC 9.4 (4.5-11.0) K/mm3 RBC 4.43 (3.65-5.03) M/mm3 Hgb 13.5 (10.1-14.3) gm/dl Hct 41.4 (30.3-42.9) % MCV 94 (79-97) fl MCH 31 (28-32) pg MCHC 33 (30-34) % RDW 14.2 (13.2-15.2) % Plt Count 260 (140-440) K/mm3 Lymph % (Auto) 28.1 (13.4-35.0) % [place] % (Auto) 6.6 (0.0-7.3) % Eos % (Auto) 0.7 (0.0-4.3) % Baso % (Auto) 0.6 (0.0-1.8) % Lymph # 2.6 (1.2-5.4) K/mm3 [place] # 0.6 (0.0-0.8) K/mm3 Eos # 0.1 (0.0-0.4) K/mm3 Baso # 0.1 (0.0-0.1) K/mm3 Seg Neutrophils % 64.0 (40.0-70.0) % Seg Neutrophils # 6.0 (1.8-7.7) K/mm3 Sodium 141 (137-145) mmol/L Potassium 3.2 L (3.6-5.0) mmol/L Chloride 92.8 L (98-107) mmol/L Carbon Dioxide 35 H (22-30) mmol/L Anion Gap 16 mmol/L BUN 12 (7-17) mg/dL Creatinine 1.1 (0.7-1.2) mg/dL Estimated GFR > 60 ml/min BUN/Creatinine Ratio 10.90 % Glucose 137 H (65-100) mg/dL Calcium 9.3 (8.4-10.2) mg/dL Total Bilirubin 0.20 (0.1-1.2) mg/dL AST 11 (5-40) units/L ALT 8 (7-56) units/L Alkaline Phosphatase 63 (35-129) units/L Total Protein 6.7 (6.3-8.2) g/dL Albumin 3.9 (3.9-5) g/dL Albumin/Globulin Ratio 1.4 % Lipase 22 (13-60) units/L Urine Color Yellow (Yellow) Urine Turbidity Clear (Clear) Urine pH 8.0 H (5.0-7.0) Ur Specific [place] 1.013 (1.003-1.030) Urine Protein <15 mg/dl (Negative) mg/dL Urine Glucose (UA) Neg (Negative) mg/dL Urine Ketones Neg (Negative) mg/dL Urine Blood Neg (Negative) Urine Nitrite Neg (Negative) Urine Bilirubin Neg (Negative) Urine Urobilinogen 4.0 (<2.0) mg/dL Ur Leukocyte Esterase Neg (Negative) Urine WBC (Auto) < 1.0 (0.0-6.0) /HPF Urine RBC (Auto) 2.0 (0.0-6.0) /HPF U Epithel Cells (Auto) < 1.0 (0-13.0) /HPF - EKG Data -: EKG Interpreted by Me (sinus rhythm rate 65 no acute elevation GA with T- wave inversions) - EKG Data When compared to previous EKG there are: previous EKG unavailable - Medical Decision Making Patient's pain is chronic since ongoing 1 month the patient had [address] scans last scan on November 07. Given the patient has normal urine and labs that do not think that repeat CT is indicated at this time. Patient treated symptomatically and follow reoccurs - Differential Diagnosis chronic pain, renal colic, UTI, diverticulitis Critical Care Time: No Critical care attestation.: If time is entered above; I have spent that time in minutes in the direct care of this critically ill patient, excluding procedure time. ED Disposition Clinical Impression: Chronic abdominal pain, Hypokalemia, Left flank pain, chronic Disposition: TO HOME OR SELFCARE Is pt being admited?: Yes Condition: Stable Instructions: Abdominal Pain (ED), Hypokalemia (ED) Additional Instructions: Take the medication as needed for pain. Follow up with your doctor. Return if symptoms worsen Prescriptions: HYDROcodone/APAP 5-325 [[place] 5-325 mg TAB] 1 each PO Q6HR PRN #20 tablet PRN Reason: Pain Ondansetron [Zofran Odt] 4 mg PO Q8HR PRN #20 tab.rapdis PRN Reason: Nausea And Vomiting Referrals: [facility]AR[facility] NEWELL [Other] - 3-5 Days Time of Disposition: 04:25
[2016-11-21 04:52] VITALS: BP 135/87
== END 2016-11-21 05:15 | disposition home or self-care (01) ==
LOC: ED 17:49
DX: E87.6 Hypokalemia (principal); R10.32 Left lower quadrant pain; G89.29 Other chronic pain; I10 Essential (primary) hypertension; G43.909 Migraine, unspecified, not intractable, without status migrainosus
CPT/HCPCS: 36415; 80053; 81001; 83690; 85025; 96374; 96375; 99283; J1170; J1885; J2405

== ENCOUNTER 2016-12-03 08:06 | Emergency (ER) | payer MEDICARE ==
[2016-12-03 08:12] VITALS: BP 169/122
[2016-12-03] MEDS ORDERED: TORADOL IM ONE (10:19)
[2016-12-03 11:21] LABS: Bilirubin,Urine NEG (Negative); Blood,Urine SM (Negative); Ketones,Urine NEG (Negative); Leukocyte Esterase,Urine MOD (Negative); Mucus,Urine FEW /HPF; Nitrite,Urine NEG (Negative)
--- NOTE | 2016-12-03 11:40 | Emergency Department Report ---
ED Back Pain/Injury HPI - General Chief Complaint: Back Pain/Injury Stated Complaint: BACK PAIN Time Seen by Provider: 12/03/16 10:09 Source: patient Limitations: No Limitations - History of Present Illness Initial Comments: Patient is a 66-year-old female with history of hypertension who presents due to left flank pain and left lower back pain times one month. Patient denies any falls or injury. Patient denies any dysuria, hematuria or frequency. Patient denies any numbness or tingling. Patient states that she has had x- rays of her back which have been normal. She denies any abdominal pain, nausea , vomiting or diarrhea. Patient denies any urinary or bowel incontinence, she denies any saddle anesthesia. MD Complaint: back pain Onset/Timin -: month(s) Similar Symptoms Previously: Yes Radiation: none Severity: moderate Quality: aching Improves With: none Worsens With: none Context: unknown Associated Symptoms: denies other symptoms - Related Data Home Medications Medication Instructions Recorded Confirmed Last Taken Lisinopril/Hydrochlorothiazide 1 tab PO DAILY 06/19/14 11/21/16 06/19/14 [Zestoretic 20-25 mg] Previous Rx's Medication Instructions Recorded Last Taken Type Ibuprofen [Motrin 800 MG tab] 800 mg PO TID PRN #30 tablet 11/07/13 Unknown Rx amLODIPine [Norvasc] 5 mg PO DAILY #30 tab 06/19/14 Unknown Rx Metoprolol [Lopressor TAB] 25 mg PO BID #60 tablet 01/31/15 Unknown Rx predniSONE [Deltasone] 40 mg PO QDAY #5 tab 10/03/16 Unknown Rx traMADol [Ultram 50 MG tab] 50 mg PO Q8H PRN #15 tablet 10/03/16 Unknown Rx Butalb/Acetamin/Caff 50-325-40 1 each PO Q4H PRN #12 tablet 10/16/16 Unknown Rx [Fioricet] Diclofenac Sodium 75 mg PO Q12HR PRN #30 tab 10/16/16 Unknown Rx Ondansetron [Zofran TAB] 4 mg PO Q8HR PRN #10 tablet 10/16/16 Unknown Rx traMADol [Ultram 50 MG tab] 50 mg PO Q6HR PRN #20 tablet 11/07/16 Unknown Rx HYDROcodone/APAP 5-325 [[place] 1 each PO Q6HR PRN #20 tablet 11/21/16 Unknown Rx 5-325 mg TAB] Ibuprofen [Motrin] 600 mg PO Q8H PRN #30 tablet 11/21/16 Unknown Rx Ondansetron [Zofran Odt] 4 mg PO Q8HR PRN #20 tab.rapdis 11/21/16 Unknown Rx Ciprofloxacin HCl [Ciprofloxacin 500 mg PO Q12H #14 tab 12/03/16 Unknown Rx TAB] Ibuprofen [Motrin 600 MG tab] 600 mg PO Q8H PRN #30 tablet 12/03/16 Unknown Rx Methocarbamol [Robaxin TAB] 750 mg PO Q8H PRN #15 tablet 12/03/16 Unknown Rx traMADol [Ultram 50 MG tab] 50 mg PO Q6HR PRN #15 tablet 12/03/16 Unknown Rx Allergies Allergy/AdvReac Type Severity Reaction Status Date / Time No Known Allergies Allergy Verified 11/07/16 11:14 ED Review of Systems ROS: Stated complaint: BACK PAIN Other details as noted in HPI Comment: All other systems reviewed and negative Constitutional: no symptoms reported Respiratory: no symptoms reported Gastrointestinal: denies: abdominal pain, nausea, vomiting, diarrhea Musculoskeletal: back pain. denies: joint swelling, arthralgia, myalgia Skin: denies: rash ED Past Medical Hx - Past Medical History chronic back pain Family history: hypertension ED Back Pain Physical Exam - Exam General: Vital signs noted. No distress. Alert and acting appropriately. Back/Abdomen: Yes Perilumbar Tenderness, Yes Flank Tenderness (left), No Abdominal Tenderness, No Perithoracic Tenderness, No Sacroiliac Tenderness, No Straight Leg Raise Pain Neuro: Yes Normal Sensation, Yes Normal Gait, No Motor Weakness ED Course Vital Signs 12/03/16 08:10 Temperature 97.8 F Pulse Rate 98 H Respiratory 16 Rate Blood Pressure 169/122 O2 Sat by Pulse 100 Oximetry Ed Back Pain Tests - Tests Tests: Normal UA ED Medical Decision Making - Lab Data Lab Results 12/03/16 Range/Units 10:42 Urine Color Yellow (Yellow) Urine Turbidity Clear (Clear) Urine pH 6.0 (5.0-7.0) Ur Specific [place] 1.015 (1.003-1.030) Urine Protein 30 mg/dl (Negative) mg/dL Urine Glucose (UA) Neg (Negative) mg/dL Urine Ketones Neg (Negative) mg/dL Urine Blood Sm (Negative) Urine Nitrite Neg (Negative) Urine Bilirubin Neg (Negative) Urine Urobilinogen 4.0 (<2.0) mg/dL Ur Leukocyte Esterase Mod (Negative) Urine WBC (Auto) 1.0 (0.0-6.0) /HPF Urine RBC (Auto) 4.0 (0.0-6.0) /HPF U Epithel Cells (Auto) 2.0 (0-13.0) /HPF Hyaline Casts 5 /LPF Urine Mucus Few /HPF - Medical Decision Making Patient was no acute distress, patient had mild tenderness with palpation of the left flank and left lower back pain has been going on for one month. Patient had no lumbar spine tenderness. Kidney stone is unlikely due to the duration of the back pain. Musculoskeletal pain is more likely. Patient was discharged with a prescription for Cipro to treat mild UTI. Patient was discharged with Robaxin, tramadol and ibuprofen. Patient was given information on follow-up with an orthopedic surgeon. - Differential Diagnosis lumbar strain, muscle spasms, UTI Critical care attestation.: If time is entered above; I have spent that time in minutes in the direct care of this critically ill patient, excluding procedure time. ED Disposition Clinical Impression: UTI (urinary tract infection) Qualifiers: Urinary tract infection type: acute cystitis Back pain Qualifiers: Back pain location: low back pain Chronicity: acute Back pain laterality: left Sciatica presence: without sciatica Qualified Code(s): M54.5 - Low back pain Disposition: DC-01 TO HOME OR SELFCARE Is pt being admited?: No Does the pt Need Aspirin: No Condition: Good Instructions: Urinary Tract Infection in Women (ED), Low Back Strain (ED) Additional Instructions: Take ciprofloxacin 100 mg twice a day for 7 days. Take Robaxin 750 mg every 8 hours as needed for muscle spasms. Take ibuprofen 600 mg every 8 hours as needed for pain. Take tramadol 1 tablet every 6 hours as needed for severe pain. Follow-up with provided orthopedic surgeon for further evaluation of the back pain if you are still having back pain after taking the antibiotics. Prescriptions: Ciprofloxacin HCl [Ciprofloxacin TAB] 500 mg PO Q12H #14 tab Ibuprofen [Motrin 600 MG tab] 600 mg PO Q8H PRN #30 tablet PRN Reason: Pain Methocarbamol [Robaxin TAB] 750 mg PO Q8H PRN #15 tablet PRN Reason: Muscle Spasm traMADol [Ultram 50 MG tab] 50 mg PO Q6HR PRN #15 tablet PRN Reason: Pain Referrals: PRIMARY CARE, [Primary Care Provider] - 3-5 Days BREANN ESCAMILLA MD [Staff Physician] - 3-5 Days Time of Disposition: 11:40
== END 2016-12-03 11:56 | disposition home or self-care (01) ==
LOC: ED 08:06
DX: N39.0 Urinary tract infection, site not specified (principal); M54.5 Low back pain
CPT/HCPCS: 81001; 96372; 99283; J1885

== ENCOUNTER 2017-02-09 18:04 | Inpatient (IN) | payer MEDICARE ==
--- NOTE | 2017-02-09 22:17 | Emergency Department Report ---
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 pt thought her arm had fallen asleep but it has not recovered all day long. she denies h/o cva or any numbness, no aphasia, no difficulty with though process, no other complaints except her chronic lower back pain. -: hour(s) (12) Location: right, upper extremity History of Same: No -: Yes myalgia (mild), Yes arthralgia (mild), No fever, No associated dyspnea, No associated chest pain Radiation: none Severity scale (0 -10): 5 Quality: aching Consistency: intermittent Improves with: nothing Worsens with: nothing Associated Symptoms: myalgias, arthralgias - Related Data Home Medications Medication Instructions Recorded Confirmed Last Taken Lisinopril/Hydrochlorothiazide 1 tab PO DAILY 06/19/14 11/21/16 06/19/14 [Zestoretic 20-25 mg] Previous Rx's Medication Instructions Recorded Last Taken Type Ibuprofen [Motrin 800 MG tab] 800 mg PO TID PRN #30 tablet 11/07/13 Unknown Rx amLODIPine [Norvasc] 5 mg PO DAILY #30 tab 06/19/14 Unknown Rx Metoprolol [Lopressor TAB] 25 mg PO BID #60 tablet 01/31/15 Unknown Rx predniSONE [Deltasone] 40 mg PO QDAY #5 tab 10/03/16 Unknown Rx traMADol [Ultram 50 MG tab] 50 mg PO Q8H PRN #15 tablet 10/03/16 Unknown Rx Butalb/Acetamin/Caff 50-325-40 1 each PO Q4H PRN #12 tablet 10/16/16 Unknown Rx [Fioricet] Diclofenac Sodium 75 mg PO Q12HR PRN #30 tab 10/16/16 Unknown Rx Ondansetron [Zofran TAB] 4 mg PO Q8HR PRN #10 tablet 10/16/16 Unknown Rx traMADol [Ultram 50 MG tab] 50 mg PO Q6HR PRN #20 tablet 11/07/16 Unknown Rx HYDROcodone/APAP 5-325 [[place] 1 each PO Q6HR PRN #20 tablet 11/21/16 Unknown Rx 5-325 mg TAB] Ibuprofen [Motrin] 600 mg PO Q8H PRN #30 tablet 11/21/16 Unknown Rx Ondansetron [Zofran Odt] 4 mg PO Q8HR PRN #20 tab.rapdis 11/21/16 Unknown Rx Ciprofloxacin HCl [Ciprofloxacin 500 mg PO Q12H #14 tab 12/03/16 Unknown Rx TAB] Ibuprofen [Motrin 600 MG tab] 600 mg PO Q8H PRN #30 tablet 12/03/16 Unknown Rx Methocarbamol [Robaxin TAB] 750 mg PO Q8H PRN #15 tablet 12/03/16 Unknown Rx traMADol [Ultram 50 MG tab] 50 mg PO Q6HR PRN #15 tablet 12/03/16 Unknown Rx Allergies Allergy/AdvReac Type Severity Reaction Status Date / Time No Known Allergies Allergy Verified 11/07/16 11:14 ED Review of Systems ROS: 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 denies: joint swelling, arthralgia Skin: denies: rash, lesions Neurological: weakness (right upper extremity). denies: headache, paresthesias Psychiatric: denies: anxiety, depression Hematological/Lymphatic: denies: easy bleeding, easy bruising ED Past Medical Hx - Past Medical History Previous Medical History?: Yes Hx Hypertension: Yes Hx Congestive Heart Failure: No Hx Diabetes: No Hx Headaches / Migraines: Yes Hx Asthma: No Hx COPD: No Additional medical history: chronic back pain - Surgical History Past Surgical History?: No - Social History Smoking Status: Current Some Day Smoker Substance Use Type: None - Medications Home Medications: Home Medications Medication Instructions Recorded Confirmed Last Taken Type Ibuprofen [Motrin 800 MG tab] 800 mg PO TID PRN #30 tablet 11/07/13 11/21/16 Unknown Rx Lisinopril/Hydrochlorothiazide 1 tab PO DAILY 06/19/14 11/21/16 06/19/14 History [Zestoretic 20-25 mg] amLODIPine [Norvasc] 5 mg PO DAILY #30 tab 06/19/14 11/21/16 Unknown Rx Metoprolol [Lopressor TAB] 25 mg PO BID #60 tablet 01/31/15 11/21/16 Unknown Rx predniSONE [Deltasone] 40 mg PO QDAY #5 tab 10/03/16 11/21/16 Unknown Rx traMADol [Ultram 50 MG tab] 50 mg PO Q8H PRN #15 tablet 10/03/16 11/21/16 Unknown Rx Butalb/Acetamin/Caff 50-325-40 1 each PO Q4H PRN #12 tablet 10/16/16 11/21/16 Unknown Rx [Fioricet] Diclofenac Sodium 75 mg PO Q12HR PRN #30 tab 10/16/16 11/21/16 Unknown Rx Ondansetron [Zofran TAB] 4 mg PO Q8HR PRN #10 tablet 10/16/16 11/21/16 Unknown Rx traMADol [Ultram 50 MG tab] 50 mg PO Q6HR PRN #20 tablet 11/07/16 11/21/16 Unknown Rx HYDROcodone/APAP 5-325 [[place] 1 each PO Q6HR PRN #20 tablet 11/21/16 Unknown Rx 5-325 mg TAB] Ibuprofen [Motrin] 600 mg PO Q8H PRN #30 tablet 11/21/16 Unknown Rx Ondansetron [Zofran Odt] 4 mg PO Q8HR PRN #20 tab.rapdis 11/21/16 Unknown Rx Ciprofloxacin HCl [Ciprofloxacin 500 mg PO Q12H #14 tab 12/03/16 Unknown Rx TAB] Ibuprofen [Motrin 600 MG tab] 600 mg PO Q8H PRN #30 tablet 12/03/16 Unknown Rx Methocarbamol [Robaxin TAB] 750 mg PO Q8H PRN #15 tablet 12/03/16 Unknown Rx traMADol [Ultram 50 MG tab] 50 mg PO Q6HR PRN #15 tablet 12/03/16 Unknown Rx ED Physical Exam - General Limitations: No Limitations General appearance: alert, in no apparent distress - Head Head exam: Present: atraumatic, normocephalic - Eye Eye exam: Present: normal appearance - ENT ENT exam: Present: mucous membranes moist - Neck Neck exam: Present: normal inspection - Respiratory Respiratory exam: Present: decreased breath sounds, other (breathes out cigarette smoke). Absent: wheezes, rales, rhonchi, stridor - Cardiovascular Cardiovascular Exam: Present: regular rate, normal rhythm. Absent: systolic murmur, diastolic murmur, rubs, gallop - GI/Abdominal GI/Abdominal exam: Present: soft, normal bowel sounds - Rectal Rectal exam: Present: deferred - Expanded Upper Extremity Exam Right Shoulder Exam: Present: normal inspection, full ROM. Absent: tenderness, swelling, deformity, crepidus, dislocation, erythema Upper Arm exam: Present: normal inspection, full ROM. Absent: tenderness, swelling Elbow exam: Present: normal inspection, full ROM. Absent: tenderness Forearm Wrist exam: Present: other (wrist drop). Absent: full ROM, tenderness, swelling Hand Wrist exam: Present: other (wrist drop, weakness in wrist). Absent: normal inspection, full ROM (decrease ROM, cannot extend wrist), deformity, erythema Neuro motor exam: Absent: wrist extension intact Neurosensory exam: Absent: radial nerve intact Vascular: Present: normal capillary refill - Back Exam Back exam: Present: normal inspection - Neurological Exam Neurological exam: Present: alert, oriented X3 - Psychiatric Psychiatric exam: Present: normal affect, normal mood - Skin Skin exam: Present: warm, dry, intact, normal color. Absent: rash ED Course Vital Signs 02/09/17 02/09/17 18:12 20:49 Temperature 97.7 F 97.7 F Pulse Rate 99 H 99 H Respiratory 16 16 Rate Blood Pressure 95/57 [Left] O2 Sat by Pulse 100 100 Oximetry ED Medical Decision Making - Lab Data Result diagrams: 02/09/17 22:08 02/09/17 22:08 Critical care attestation.: If time is entered above; I have spent that time in minutes in the direct care of this critically ill patient, excluding procedure time. ED Disposition Condition: Stable Referrals: PRIMARY CARE, [Primary Care Provider] - 3-5 Days
[2017-02-09 22:23] LABS: Basophils % (Auto) 0.6 % (0.0-1.8); Eosinophils % (Auto) 1.4 % (0.0-4.3); Hematocrit 39.9 % (30.3-42.9); Hemoglobin 13.1 gm/dl (10.1-14.3); Mean Corpuscular HGB Conc 33 % (30-34); Mean Corpuscular Hemoglobin 31 pg (28-32); Mean Corpuscular Volume 93 fl (79-97); Platelet Count 252 K/mm3 (140-440); Red Blood Count 4.28 M/mm3 (3.65-5.03); Red Cell Distribution Width 14.8 % (13.2-15.2); White Blood Count 9.5 K/mm3 (4.5-11.0)
--- NOTE | 2017-02-09 22:42 | Cat Scan Report ---
FINAL REPORT EXAM: CT HEAD/BRAIN WO CON HISTORY: arm weakness COMPARISON: CT of the head from October 2016. TECHNIQUE: Axial images obtained skull base through vertex. FINDINGS: No acute intracranial hemorrhage, midline shift or pathologic extra axial fluid collection. Ventricles and cisterns are normal in size and configuration for the patient's age. Schneider-white differentiation preserved. Calvarium grossly intact. Visualized orbits are grossly unremarkable. Mild mucosal thickening the visualized paranasal sinuses. Mastoid air cells are clear. IMPRESSION: No grossly acute intracranial abnormality.
[2017-02-09 22:44] LABS: Creatine Kinase MB 1.3 ng/mL (0.0-4.0)
[2017-02-09 22:46] LABS: Alanine Aminotransferase 14 units/L (7-56); Albumin 4.1 g/dL (3.9-5); Albumin/Globulin Ratio 1.3 %; Alkaline Phosphatase 69 units/L (35-129); Anion Gap 17 mmol/L; BUN/Creatinine Ratio 22; Blood Urea Nitrogen 26 mg/dL (7-17); Calcium 9.4 mg/dL (8.4-10.2); Carbon Dioxide 28 mmol/L (22-30); Chloride 100.2 mmol/L (98-107); Creatine Kinase 43 units/L (30-135); Glucose 115 mg/dL (65-100); Potassium 4.3 mmol/L (3.6-5.0); Sodium 141 mmol/L (137-145); Total Protein 7.2 g/dL (6.3-8.2)
--- NOTE | 2017-02-09 22:46 | Cat Scan Report ---
FINAL REPORT EXAM: CT CERVICAL SPINE WO CON HISTORY: right wrist drop, rt arm weakness (no trauma) COMPARISON: None available. TECHNIQUE: Axial images obtained through the cervical spine. Additional sagittal and coronal reformatted images were obtained. FINDINGS: Straightening of normal lordotic curvature of the cervical spine. Cervical vertebral body heights are preserved. No acute fracture or traumatic subluxation. Odontoid process, articular pillars and occipital condyles are intact. Moderate loss of disc height C3-C4 and C4-C5 levels. Mild loss of disc height C5-C6 level. Mild canal stenosis and mild to moderate foraminal narrowing at those levels due to endplate osteophyte, broad-based disc bulges, facet changes and uncovertebral hypertrophy. Emphysematous changes at the lung apices. Mild to moderate calcified plaque along the right carotid bifurcation. IMPRESSION: No acute fracture or subluxation of the cervical spine. There is straightening of the normal lordotic curvature which may relate to patient positioning or muscle spasm. [id number] degenerative changes.
--- NOTE | 2017-02-09 22:49 | XRay Report ---
FINAL REPORT EXAM: XR CHEST ROUTINE 2V HISTORY: decrease breath sounds COMPARISON: None available. FINDINGS:: Frontal and lateral views of the chest obtained. Heart upper limits of normal in size . No focal consolidation or effusion. No pneumothorax. Visualized bony thorax is grossly intact. IMPRESSION:: No acute findings.
[2017-02-10] MEDS ORDERED: ZOFRAN IV PRN (02:33)
[2017-02-10] MEDS ORDERED: TYLENOL PO PRN (02:34)
[2017-02-10] MEDS ORDERED: ULTRAM PO PRN (02:38)
[2017-02-10] MEDS ORDERED: ROBAXIN PO PRN (02:38)
[2017-02-10] MEDS ORDERED: FIORICET PO PRN (02:38)
[2017-02-10] MEDS ORDERED: NON-FORMULARY (Ciprofloxacin Hcl [Ciprofloxacin Tab] 500 MG) PO SCH (02:45)
--- NOTE | 2017-02-10 04:01 | History and Physical Report ---
CHIEF COMPLAINT: Weakness of the right upper extremity. HISTORY OF PRESENT ILLNESS: The patient is a 66-year-old female who woke up yesterday 02/09/2017 and started having weakness in the right upper extremity with difficulty picking objects with the right hand. There was no weakness in the left upper limb and lower limbs. There was also no problem with speech. The patient also denied any history of dizziness, numbness or any history of loss of feeling in the right upper extremity. There was also no history of fever or chills, nausea or vomiting and no history of headaches, chest pain or shortness of breath. The patient presented to the Emergency Room. PAST MEDICAL HISTORY: Pertinent for hypertension, migraine headaches and chronic back pain. PAST SURGICAL HISTORY: Unremarkable. FAMILY HISTORY: Noncontributory. SOCIAL HISTORY: The patient smoked cigarettes, says she quit not too long ago. Does not drink alcohol and does not use illicit drugs. MEDICATIONS: The patient is on ibuprofen 800 mg 3 times daily as needed for pain, Zestoretic including lisinopril/hydrochlorothiazide 20/25 mg 1 by mouth daily, amlodipine 5 mg by mouth daily, Lopressor 25 mg by mouth twice daily, prednisone 40 mg by mouth daily, tramadol 50 mg by mouth every 8 hours as needed for pain and Fioricet 1 tablet by mouth every 4 hours as needed for pain. The patient is also on diclofenac sodium 75 mg by mouth every 12 hours, Zofran 4 mg by mouth every 8 hours and tramadol 50 mg by mouth every 6 hours. The patient is also on [place] 5/325 mg by mouth every 6 hours and ibuprofen 600 mg every 8 hours as needed for pain as well as Robaxin 750 mg by mouth every 8 hours as needed for pain. ALLERGIES: There are no known drug allergies. REVIEW OF SYSTEMS: CONSTITUTIONAL: There is no fever, no chills, no diaphoresis. HEENT: There is no headache or sore throat. CARDIOVASCULAR: There is no chest pain, orthopnea. RESPIRATORY: There is no shortness of breath or cough. GASTROINTESTINAL: There is no nausea, no vomiting, no abdominal pain, diarrhea or constipation. NEUROLOGICAL: Weakness of the right upper extremity noted. No dizziness. No altered mental status. MUSCULOSKELETAL: There is no joint pain or swelling except for weakness of the right upper extremity. DERMATOLOGICAL: There is no skin rash or itching. GENITOURINARY: There is no dysuria, hematuria, or flank pain. Rest of system review is normal. PHYSICAL EXAMINATION: GENERAL: At the time of exam, the patient was found to be alert, oriented x 3 and not in acute distress. VITAL SIGNS: Shows temperature of 97.7 degrees Fahrenheit, pulse of 99, respirations 16, blood pressure 95/57, O2 sat of 100% on room air. HEENT: Showed pupils to be equal, round, reactive to light accommodation. Extraocular muscles are intact. NECK: Supple with no JVD or carotid bruit. CARDIOVASCULAR: Show first and second heart sounds with no gallops or murmur. RESPIRATORY: Showed good air entry on both sides of the lung with no abnormal breath sounds. GASTROINTESTINAL: Show abdomen to be soft, full, nontender with no organomegaly or rigidity elicited. Bowel sounds are normal. NEUROLOGICAL: Show weakness in the right upper extremity with muscle strength of grade 4/6 on the right with grade 6/6 on the left. There is no loss of sensory function. MUSCULOSKELETAL: Show no joint swelling or tenderness. DERMATOLOGICAL: Show no skin rash. GENITOURINARY: Showing no costovertebral angle tenderness. PERTINENT LAB AND IMAGING STUDIES: The patient had CT of the cervical spine without contrast that shows no acute fracture or subluxation of the cervical spine. The strengthening of the normal lordotic curvature which may relate to patient's positioning or muscle spasms. There is mild to moderate degenerative changes. Also, the patient had a CT of the head without contrast done that shows no gross acute intracranial lesion. The patient also had chest x-ray done that shows no acute findings. The patient's lab test shows CBC with unremarkable findings except for CBC differential that showed a high lymphocyte count of 36.1% and high monocyte count of 8.9%. The patient's chemistry shows elevated BUN of 26 with normal electrolytes. Cardiac enzymes came back unremarkable. DIAGNOSIS: Right upper extremity weakness. PLAN: The patient will be admitted to medical floor on telemetry and will have MRI of the brain without contrast done in the morning as well as MRA, MRV of the head without contrast done in the morning. The patient will also have bilateral carotid Doppler done in the morning and will have a Neurology consult with Dr. Yeh who is rounding today 02/10/2017. The patient will also have physical therapy consult for evaluation and treatment of the right upper extremity weakness. The patient will be on Tylenol 650 mg by mouth every 4 hours for fever and headache and aspirin 325 mg by mouth daily. The patient will also be on sequential compressive device as per mean of the DVT prophylaxis and will be on IV Zofran 4 mg every 8 hours for nausea and vomiting. The patient will be on her home medications which have been reconciled. The patient diet will be 2 g sodium diet. JOB# [id number] OCN/NTS
[2017-02-10] MEDS ORDERED: ATIVAN IV ONE (09:57)
[2017-02-10] MEDS ORDERED: DELTASONE PO SCH (10:00)
[2017-02-10] MEDS ORDERED: NON-FORMULARY (Lisinopril/Hydrochlorothiazide [Zestoretic 20-25 Mg] 1 TAB) PO SCH (10:00)
[2017-02-10] MEDS: LEVAQUIN PO SCH (11:18)
[2017-02-10] MEDS: ASPIRIN PO SCH (11:19)
[2017-02-10] MEDS: HCTZ PO SCH (11:20)
[2017-02-10] MEDS: NORVASC PO SCH (11:21)
--- NOTE | 2017-02-10 11:28 | History and Physical Report ---
History of Present Illness Date of examination: 02/10/17 Date of admission: 02/10/17 02:19 Chief complaint: NEUROLOGY CONSULTATION NOTE CC I am asked to see this 66 yo AA female for right hand weakness noted on awakening at 10:00 am yesterday, Friday. HPI Patient is fully awake, aware, and cooperative and renders a good hx. she has an Hx of HTN, and migraine, and chronic low back pain. In this setting, she felt well all day Friday, went to bed around 11 pm, slept late and awoke on Friday around 10:00 am. she sleeps on her stomach and usually on her right arm with her elbow bent. She did not sleep on a sofa. She noted weakness only in her right hand, not in the arm. She noted mild aching in the distal right forearm, mild, not in the rest of her arm or neck. There was no weakness elsewhere in the left arm or in either leg. She had no headache, dizziness, vertigo, difficulty with speech or language, double vision, or numbness or tingling anywhere. She noted no difficulty with gait or station. No prior hz of these sx and no prior hx of any focal neuro sx. she is not diabetic. PMH - see above ROS - no fever, sweats or chills, no skin rashes, palpitations, chest pain, nausea or vomiting, diarrhea, constipation, red or black stools. an 11 point ROS is negative. SH/FH not re-reviewed MEDS/ALLERGIES - see chart EXAM HEENT - normal Neck - supple, no bruits Lungs - clear to A Cor - no m, rubs, gallops Abd - soft, BS normal, Extrem - no evidence trauma, warm, well perfused. NEURO EXAM MS - fully alert, speech fluent and clear and without error, oriented x 3, follows commands well, fund of knowledge nl CN - 2 - 12 nl MOT - 5/5 all four extremities proximally and distally EXCEPT: ZERO right wrist extensors, zero/5 right finger extensors, near zero finger AB and AD ductors, with preserved right wrist flexors and finger flexor function. SENS - nl to touch throughout EXCEPT FOR decreased sensation to touch over the right radial sensory distribution. DTRs - 2+ at biceps bilat, 2+ left triceps, 1+ right triceps, 2+ both knees, 1+ both ankles, great toes downgoing to plantar stim bilat. GAIT - normal DX IMP: 1. 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 The neuro findings are exclusively attributable to right radial nerve disfunction (sensory and motor). NOT stoke , not cervical radiculopathy. 2. Other dxs as above RECC: 1. No need to pursue stoke w/u, MRI etc 2. 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 3. Will need OPD neuro follow up in one month. Sx usually resolve completely in 1 - 3 months I(discussed with patient). No particular Rx. Pt may need a note re dx if she needs her right hand to work. 5. See no need for further neuro testing. Lei Yeh MD Medications and Allergies Allergies Allergy/AdvReac Type Severity Reaction Status Date / Time No Known Allergies Allergy Verified 11/07/16 11:14 Home Medications Medication Instructions Recorded Confirmed Last Taken Type Lisinopril/Hydrochlorothiazide 1 tab PO DAILY 06/19/14 02/10/17 1 Day Ago History [Zestoretic 20-25 mg] amLODIPine [Norvasc] 5 mg PO DAILY #30 tab 06/19/14 02/10/17 1 Day Ago Rx Metoprolol [Lopressor TAB] 25 mg PO BID #60 tablet 01/31/15 02/10/17 1 Day Ago Rx Ondansetron [Zofran Odt] 4 mg PO Q8HR PRN #20 tab.rapdis 11/21/16 02/10/17 2 Weeks Ago Rx Methocarbamol [Robaxin TAB] 750 mg PO Q8H PRN #15 tablet 12/03/16 02/10/17 1 Month Ago Rx Active Meds: Active Medications Acetaminophen (Tylenol) 650 mg PO Q4H PRN PRN Reason: Pain, Mild (1-3) Acetaminophen/Butalbital/Caffeine (Fioricet) 1 tab PO Q4H PRN PRN Reason: Headache Acetaminophen/Hydrocodone Bitart (Christine 5/325) 1 each PO Q6HR PRN PRN Reason: Pain Amlodipine Besylate (Norvasc) 5 mg PO DAILY [facility] Aspirin (Aspirin) 325 mg PO QDAY [facility] Hydrochlorothiazide (Hctz) 25 mg PO QDAY [facility] Levofloxacin (Levaquin) 500 mg PO Q24HR [facility] Lisinopril (Zestril) 20 mg PO QDAY [facility] Methocarbamol (Robaxin) 750 mg PO Q8H PRN PRN Reason: Muscle Spasm Metoprolol Tartrate (Lopressor) 25 mg PO BID [facility] Ondansetron HCl (Zofran) 4 mg IV Q8H PRN PRN Reason: Nausea And Vomiting Prednisone (Deltasone) 40 mg PO QDAY [facility] Tramadol HCl (Ultram) 50 mg PO Q6HR PRN PRN Reason: Pain Physical Examination - Vital Signs Vital Signs: Vital Signs Temp Pulse Resp Pulse Ox 97.7 F 99 H 16 100 02/09/17 18:12 02/09/17 18:12 02/09/17 18:12 02/09/17 18:12 Results - Laboratory Findings CBC and BMP: 02/09/17 22:08 02/09/17 22:08
[2017-02-10] MEDS: NORCO 5/325 PO PRN (15:04)
[2017-02-10] MEDS: ZESTRIL PO SCH (15:05)
--- NOTE | 2017-02-10 18:10 | Progress Note ---
Assessment and Plan Assessment and plan: --Right wrist drop/right radial mono neuropathy Findings not consistent with stroke, discussed with Dr. Yeh, neurology , MRI MRA not indicated Advice occupational therapy, supportive care --Right carotid artery stenosis with 50-79% Antiplatelets with aspirin, low-dose statin, inpatient versus outpatient vascular evaluation --Hypertension; moderate control, continue current antihypertensives and when necessary medications --Occupational therapy --DVT prophylaxis with Lovenox DC planning. 1-2 days if stable Case management, outpatient occupational therapy upon discharge, and follow up with neurologist and medically stable History Interval history: Patient seen and examined medical records reviewed No new events reported by the nursing staff Admitted with right upper extremity weakness, right wrist drop Evaluated by neurology, findings not consistent with stroke, no need for further neuro workup with MRI Patient alert awake oriented 3 not in acute distress Hospitalist Physical - Constitutional Vitals: Temp Pulse Resp BP Pulse Ox 98.1 F 91 H 17 103/72 96 02/10/17 16:45 02/10/17 16:45 02/10/17 16:45 02/10/17 16:45 02/10/17 16:45 General appearance: Present: no acute distress, well-nourished - EENT Eyes: Present: PERRL, EOM intact - Neck Neck: Present: supple, normal ROM - Respiratory Respiratory effort: normal Respiratory: bilateral: diminished, negative: rales, rhonchi, wheezing - Cardiovascular Rhythm: regular Heart Sounds: Present: S1 & S2 - Extremities Extremities: no ischemia, No edema, abnormal (right upper extremity weakness/ wrist drop) Peripheral Pulses: within normal limits - Abdominal General gastrointestinal: soft, non-tender, non-distended, normal bowel sounds - Integumentary Integumentary: Present: clear, warm - Psychiatric Psychiatric: appropriate mood/affect, cooperative - Neurologic Neurologic: moves all extremities, other (wrist drop) Results - Labs CBC & Chem 7: 02/09/17 22:08 02/09/17 22:08 Labs: Laboratory Last Values WBC 9.5 K/mm3 (4.5-11.0) 02/09/17 22:08 RBC 4.28 M/mm3 (3.65-5.03) 02/09/17 22:08 Hgb 13.1 gm/dl (10.1-14.3) 02/09/17 22:08 Hct 39.9 % (30.3-42.9) 02/09/17 22:08 MCV 93 fl (79-97) 02/09/17 22:08 MCH 31 pg (28-32) 02/09/17 22:08 MCHC 33 % (30-34) 02/09/17 22:08 RDW 14.8 % (13.2-15.2) 02/09/17 22:08 Plt Count 252 K/mm3 (140-440) 02/09/17 22:08 Lymph % (Auto) 36.1 % (13.4-35.0) H 02/09/17 22:08 Craig % (Auto) 8.9 % (0.0-7.3) H 02/09/17 22:08 Eos % (Auto) 1.4 % (0.0-4.3) 02/09/17 22:08 Baso % (Auto) 0.6 % (0.0-1.8) 02/09/17 22:08 Lymph # 3.4 K/mm3 (1.2-5.4) 02/09/17 22:08 Craig # 0.8 K/mm3 (0.0-0.8) 02/09/17 22:08 Eos # 0.1 K/mm3 (0.0-0.4) 02/09/17 22:08 Baso # 0.1 K/mm3 (0.0-0.1) 02/09/17 22:08 Seg Neutrophils % 53.0 % (40.0-70.0) 02/09/17 22:08 Seg Neutrophils # 5.0 K/mm3 (1.8-7.7) 02/09/17 22:08 Sodium 141 mmol/L (137-145) 02/09/17 22:08 Potassium 4.3 mmol/L (3.6-5.0) 02/09/17 22:08 Chloride 100.2 mmol/L (98-107) 02/09/17 22:08 Carbon Dioxide 28 mmol/L (22-30) 02/09/17 22:08 Anion Gap 17 mmol/L 02/09/17 22:08 BUN 26 mg/dL (7-17) H 02/09/17 22:08 Creatinine 1.2 mg/dL (0.7-1.2) 02/09/17 22:08 Estimated GFR 55 ml/min 02/09/17 22:08 BUN/Creatinine Ratio 22 % 02/09/17 22:08 Glucose 115 mg/dL (65-100) H 02/09/17 22:08 Calcium 9.4 mg/dL (8.4-10.2) 02/09/17 22:08 Total Bilirubin 0.20 mg/dL (0.1-1.2) 02/09/17 22:08 AST 14 units/L (5-40) 02/09/17 22:08 ALT 14 units/L (7-56) 02/09/17 22:08 Alkaline Phosphatase 69 units/L (35-129) 02/09/17 22:08 Total Creatine Kinase 43 units/L (30-135) 02/09/17 22:08 CK-MB (CK-2) 1.3 ng/mL (0.0-4.0) 02/09/17 22:08 Troponin T < 0.010 ng/mL (0.00-0.029) 02/09/17 22:08 Total Protein 7.2 g/dL (6.3-8.2) 02/09/17 22:08 Albumin 4.1 g/dL (3.9-5) 02/09/17 22:08 Albumin/Globulin Ratio 1.3 % 02/09/17 22:08
[2017-02-10] MEDS: LOPRESSOR PO SCH ×2 (19:58→21:39)
[2017-02-11] MEDS: LOPRESSOR PO SCH (10:07)
[2017-02-11] MEDS: LEVAQUIN PO SCH (10:08)
[2017-02-11] MEDS: ASPIRIN PO SCH (10:08)
[2017-02-11] MEDS: ZESTRIL PO SCH (10:08)
[2017-02-11] MEDS: NORVASC PO SCH (10:08)
[2017-02-11] MEDS: HCTZ PO SCH (10:08)
[2017-02-11] MEDS: NORCO 5/325 PO PRN (10:13)
[2017-02-11 13:49] VITALS: BP 107/75
--- NOTE | 2017-02-11 14:19 | Discharge Summary ---
Providers - Providers Date of Admission: 02/10/17 02:19 Date of discharge: 02/11/17 Attending physician: BAM RAINEY 02/10/17 06:29 Consult to Physician [CONS] Routine Consulting Provider: MELVIN GILLIS Reason For Exam: RIGHT ARM WEAKNESS Place consult to:: NEURO Notified:: N Comment:: ADDED TO LIST 02/10/17 06:31 Physical Therapy Evaluation and Treat [CONS] Routine Comment: Reason For Exam: RIGHT ARM WEAKNESS 02/10/17 17:40 Consult to Physician [CONS] Routine Consulting Provider: HARIS NATH Reason For Exam: Rt. carotid artery stenosis Place consult to:: Dr. Grajeda Notified:: Iesha DELAROSA Phone number called:: Was contact made?: Yes If yes, spoke with:: Sharon-Office Time called:: 11:14 02/10/17 18:01 Occupational Therapy Evaluate and Treat [CONS] Routine Comment: Reason For Exam: Rt wrist drop/OT Primary care physician: [employer] Hospitalization Condition: Stable Disposition: DC-01 TO HOME OR SELFCARE Core Measure Documentation - Palliative Care Palliative Care/ Comfort Measures: Not Applicable - Core Measures Any of the following diagnoses?: none Exam - Constitutional Vitals: Temp Pulse Resp BP Pulse Ox 98 F 87 18 107/75 97 02/11/17 13:46 02/11/17 13:46 02/11/17 13:46 02/11/17 13:46 02/11/17 13:46 General appearance: Present: no acute distress, well-nourished - EENT Eyes: Present: PERRL, EOM intact - Neck Neck: Present: supple, normal ROM - Respiratory Respiratory effort: normal Respiratory: negative: rales, rhonchi, wheezing - Cardiovascular Rhythm: regular Heart Sounds: Present: S1 & S2 - Extremities Extremities: no ischemia, No edema, abnormal (right wrist drop) - Abdominal General gastrointestinal: Present: soft, non-tender, non-distended, normal bowel sounds - Integumentary Integumentary: Present: clear, warm - Musculoskeletal Musculoskeletal: strength equal bilaterally - Psychiatric Psychiatric: appropriate mood/affect, cooperative - Neurologic Neurologic: moves all extremities, other (right wrist drop) Plan Activity: no restrictions Diet: regular Special Instructions: occupational therapy Durable Medical Equipment Needed Upon Discharge: other (wrist support for Rt.wrist drop) Additional Instructions: out patient Occupational therapy Follow up with: PRIMARY CARE, [Primary Care Provider] - 3-5 Days MARIELLA GRIJALVA MD [Staff Physician] - 7 Days Prescriptions: Aspirin [Aspirin EC] 325 mg PO DAILY #30 tablet.
--- NOTE | 2017-02-12 14:21 | Vascular Lab Report ---
CAROTID DUPLEX STUDY: RIGHT PSVEDV CCA [id number] CCA [id number] ICA [id number] ICA MID:[id number] ICA DIST:[id number] ECA: 59 VERT: 52 19 LEFT PSVEDV CCA [id number] CCA DIST:[id number] ICA PROX:4515 ICA MID:7830 ICA DIST:[id number] ECA: 52 VERT: 49 18 REASON FOR EXAM: Right-sided weakness. COMMENTS ON THE RIGHT: Doppler frequency analysis is consistent with 50 to 79 percent diameter reduction of the internal carotid artery. A large amount of plaque is noted in the carotid bulb extending into the internal carotid artery The common carotid artery is patent. The external carotid artery is patent. The vertebral artery has antegrade flow. COMMENTS ON THE LEFT: Doppler frequency analysis is consistent with 16 to 49 percent diameter reduction of the internal carotid artery. Minimal amount of plaque is seen. The common carotid artery is patent. The external carotid artery is patent. The vertebral artery has antegrade flow. IMPRESSION: 50 to 79 percent diameter reduction in the right internal carotid artery 16 to 49 percent diameter reduction in the left internal or Clinical correlation is recommended. Consider CTA or MRA for further diagnosis
== END 2017-02-11 15:40 | disposition home or self-care (01) | DRG 74 ==
LOC: ED 18:04 → 4A 02-10 02:19 → CC2 02-11 11:19
PROVIDERS: ADMIT Internal Medicine; ATTEND Internal Medicine
DX: G56.31 Lesion of radial nerve, right upper limb (principal); I65.21 Occlusion and stenosis of right carotid artery; I10 Essential (primary) hypertension; G89.29 Other chronic pain; M54.9 Dorsalgia, unspecified; F17.200 Nicotine dependence, unspecified, uncomplicated; G43.909 Migraine, unspecified, not intractable, without status migrainosus
CPT/HCPCS: 36415; 70450; 71020; 72125; 80053; 80061; 82550; 82553; 84484; 85025; 93005; 93010; 93880; A9270-GY; G8978-GP; G8979-GP; J2060; J7512

== ENCOUNTER 2017-06-17 19:45 | Emergency (ER) | payer MEDICARE ==
[2017-06-17 19:56] VITALS: BP 140/95
--- NOTE | 2017-06-17 21:25 | Emergency Department Report ---
ED Back Pain/Injury HPI - General Chief Complaint: Back Pain/Injury Stated Complaint: BACK PAIN Time Seen by Provider: 06/17/17 21:08 Source: patient Limitations: No Limitations - History of Present Illness MD Complaint: back pain -: days(s) (2) Radiation: none Severity: moderate Severity scale (0 -10): 7 Quality: aching Consistency: constant Improves With: none Worsens With: movement Associated Symptoms: denies: confusion, weakness, chest pain, numbness, difficulty walking, cough, difficulty urinating, fever/chills, constipation, headaches, abdominal pain, nausea/vomiting, rash, seizure, shortness of breath - Related Data Home Medications Medication Instructions Recorded Confirmed Last Taken Lisinopril/Hydrochlorothiazide 1 tab PO DAILY 06/19/14 02/10/17 1 Day Ago [Zestoretic 20-25 mg] ~02/09/17 Previous Rx's Medication Instructions Recorded Last Taken Type amLODIPine [Norvasc] 5 mg PO DAILY #30 tab 06/19/14 1 Day Ago Rx ~02/09/17 Metoprolol [Lopressor TAB] 25 mg PO BID #60 tablet 01/31/15 1 Day Ago Rx ~02/09/17 Ondansetron [Zofran ODT TAB] 4 mg PO Q8HR PRN #20 tab.rapdis 11/21/16 2 Weeks Ago Rx ~01/27/17 Methocarbamol [Robaxin TAB] 750 mg PO Q8H PRN #15 tablet 12/03/16 1 Month Ago Rx ~01/11/17 Aspirin [Aspirin EC] 325 mg PO DAILY #30 tablet. 02/11/17 Unknown Rx Zolpidem [Ambien] 5 mg PO QHS PRN #7 tablet 02/11/17 Unknown Rx Ibuprofen [Motrin] 600 mg PO Q8H PRN #20 tablet 06/17/17 Unknown Rx methOCARBAMOL [Robaxin TAB] 500 mg PO Q6H PRN #15 tablet 06/17/17 Unknown Rx traMADol [Ultram] 50 mg PO Q6HR PRN #12 tablet 06/17/17 Unknown Rx Allergies Allergy/AdvReac Type Severity Reaction Status Date / Time No Known Allergies Allergy Verified 06/17/17 19:54 ED Review of Systems ROS: Stated complaint: BACK PAIN Other details as noted in HPI Comment: All other systems reviewed and negative ED Past Medical Hx - Past Medical History chronic back pain Family history: hypertension ED Back Pain Physical Exam - Exam General: Vital signs noted. No distress. Alert and acting appropriately. Back/Abdomen: Yes Perilumbar Tenderness (on the left side), No Abdominal Tenderness, No Perithoracic Tenderness, No Sacroiliac Tenderness, No Flank Tenderness, No Straight Leg Raise Pain Neuro: Yes Normal Sensation, Yes Normal DTR's, Yes Normal Gait, No Motor Weakness ED Course Vital Signs 06/17/17 19:54 Temperature 97.7 F Pulse Rate 105 H Respiratory 18 Rate Blood Pressure 140/95 O2 Sat by Pulse 97 Oximetry ED Medical Decision Making - Medical Decision Making Patient's a 66-year-old Female was up past month history of chronic back pains had increased pain for last 2 days. Patient has no urinary or bowel abnormality. Patient will be placed on meds for symptomatic relief discharged home. Critical care attestation.: If time is entered above; I have spent that time in minutes in the direct care of this critically ill patient, excluding procedure time. ED Disposition Clinical Impression: Chronic back pain Qualifiers: Back pain location: low back pain Back pain laterality: left Sciatica presence : with sciatica Sciatica laterality: sciatica of left side Qualified Code(s): M54.42 - Lumbago with sciatica, left side; G89.29 - Other chronic pain Disposition: - TO HOME OR SELFCARE Is pt being admited?: No Does the pt Need Aspirin: No Condition: Stable Instructions: Low Back Strain (ED), Chronic Back Pain (ED) Prescriptions: Ibuprofen [Motrin] 600 mg PO Q8H PRN #20 tablet PRN Reason: Pain methOCARBAMOL [Robaxin TAB] 500 mg PO Q6H PRN #15 tablet PRN Reason: Pain traMADol [Ultram] 50 mg PO Q6HR PRN #12 tablet PRN Reason: Pain Referrals: BREANN ESCAMILLA MD [Staff Physician] - 3-5 Days
== END 2017-06-17 21:33 | disposition home or self-care (01) ==
LOC: ED 19:45
DX: G89.29 Other chronic pain (principal); M54.9 Dorsalgia, unspecified
CPT/HCPCS: 99282

== ENCOUNTER 2017-08-08 08:59 | Emergency (ER) | payer MEDICARE ==
[2017-08-08 10:12] VITALS: BP 159/106
[2017-08-08 10:28] LABS: Basophils # (Auto) 0.1 K/mm3 (0.0-0.1); Basophils % (Auto) 0.6 % (0.0-1.8); Eosinophils % (Auto) 0.3 % (0.0-4.3); Hematocrit 41.6 % (30.3-42.9); Hemoglobin 13.9 gm/dl (10.1-14.3); Lymphocytes # (Auto) 0.5 K/mm3 (1.2-5.4); Lymphocytes % (Auto) 5.4 % (13.4-35.0); Mean Corpuscular HGB Conc 33 % (30-34); Mean Corpuscular Hemoglobin 30 pg (28-32); Mean Corpuscular Volume 90 fl (79-97); Monocytes # (Auto) 0.4 K/mm3 (0.0-0.8); Monocytes % (Auto) 3.8 % (0.0-7.3); Platelet Count 309 K/mm3 (140-440); Red Blood Count 4.61 M/mm3 (3.65-5.03); Red Cell Distribution Width 14.4 % (13.2-15.2)
[2017-08-08 10:43] LABS: BUN/Creatinine Ratio 29; Blood Urea Nitrogen 20 mg/dL (7-17); Calcium 9.7 mg/dL (8.4-10.2); Hemolysis Index 16
--- NOTE | 2017-08-08 10:58 | XRay Report ---
Unilateral right ribs 3 views: History: Right hip pain. Findings: There is fracture noted of ninth, 10th and 11th ribs anterior aspect. Displacement of fracture fragments. No pneumothorax. Suspected minimal pleural thickening/effusion at the right CP angle Impression: Fracture anterior end of the 9th, 10th and 11th ribs.
[2017-08-08] MEDS ORDERED: NACL 0.9% 1000 ML 1,000 ML IV ONE (11:05)
[2017-08-08] MEDS ORDERED: TORADOL IV ONE (11:06)
[2017-08-08 11:26] LABS: Alanine Aminotransferase 30 units/L (7-56); Albumin 3.6 g/dL (3.9-5)
[2017-08-08 11:35] LABS: Bilirubin,Direct < 0.2 mg/dL (0-0.2)
--- NOTE | 2017-08-08 11:58 | Emergency Department Report ---
ED Chest Pain HPI - General Chief Complaint: Back Pain/Injury Stated Complaint: FALL RIB PAIN Time Seen by Provider: 08/08/17 10:51 Source: patient Mode of arrival: Ambulatory Limitations: Physical Limitation - History of Present Illness Initial Comments: Denies hx of tachycardia Complaint: chest pain -: days(s) (1) Onset: other (Patient reports ground level fall yesterday hitting the right side of her chest agasint a tub) Pain Location: right chest Pain Radiation: none Severity: mild Severity scale (0 -10): 3 Quality: aching Consistency: intermittent Improves With: movement Worsens With: other (rest) Context: trauma/injury (fall onto right side of chest) re: denies: nausea, vomting, diaphoresis, dyspnea, sense of impending doom Other Symptoms: denies: cough, fever, syncope, rash, acid taste in mouth, leg swelling, palpitations, burping - Related Data Home Medications Medication Instructions Recorded Confirmed Last Taken Lisinopril/Hydrochlorothiazide 1 tab PO DAILY 06/19/14 02/10/17 1 Day Ago [Zestoretic 20-25 mg] ~02/09/17 Previous Rx's Medication Instructions Recorded Last Taken Type amLODIPine [Norvasc] 5 mg PO DAILY #30 tab 06/19/14 1 Day Ago Rx ~02/09/17 Metoprolol [Lopressor TAB] 25 mg PO BID #60 tablet 01/31/15 1 Day Ago Rx ~02/09/17 Ondansetron [Zofran ODT TAB] 4 mg PO Q8HR PRN #20 tab.rapdis 11/21/16 2 Weeks Ago Rx ~01/27/17 Methocarbamol [Robaxin TAB] 750 mg PO Q8H PRN #15 tablet 12/03/16 1 Month Ago Rx ~01/11/17 Aspirin [Aspirin EC] 325 mg PO DAILY #30 tablet. 02/11/17 Unknown Rx Zolpidem [Ambien] 5 mg PO QHS PRN #7 tablet 02/11/17 Unknown Rx Ibuprofen [Motrin] 600 mg PO Q8H PRN #20 tablet 06/17/17 Unknown Rx methOCARBAMOL [Robaxin TAB] 500 mg PO Q6H PRN #15 tablet 06/17/17 Unknown Rx traMADol [Ultram] 50 mg PO Q6HR PRN #12 tablet 06/17/17 Unknown Rx Allergies Allergy/AdvReac Type Severity Reaction Status Date / Time tramadol Allergy Hives Verified 08/08/17 09:17 Heart Score - HEART Score History: Slightly suspicious EKG: Normal (not performed) Age: 45-65 Risk factors: 1-2 risk factors Troponin: < normal limit HEART Score: 2 ED Review of Systems ROS: Stated complaint: FALL RIB PAIN Other details as noted in HPI Other: GENERAL: No weight change, fatigue, fever, chills, or night sweats SKIN: No changes in skin or hair, no itching, no rashes, no jaundice HEAD: No trauma, headache, or visual changes MOUTH: No bleeding gums, hoarseness, sore throat, or swelling CARDIAC: Reports right sided chest pain. No new murmur, palpitations, dyspnea on exertion, orthopnea, PND, or edema RESPIRATORY: No shortness of breath, wheeze, cough, sputum production, hemoptysis, pneumonia, asthma, bronchitis, or emphysema GI: No change in appetite, nausea, vomiting, dysphagia, change in bowel frequency, diarrhea, constipation, bleeding, hematemesis, melena, hematochezia, or abdominal pain URINARY: No frequency, urgency, polyuria, dysuria, hematuria, or incontinence MUSCULOSKELETAL: No muscle weakness, joint stiffness, decrease in range of motion, redness, swelling NEUROLOGIC: Reports dizziness. No loss of sensation, numbness, tingling, tremors, weakness, paralysis, seizures HEMATOLOGIC: No anemia, easy bruising, bleeding, petechiae, or purpura ENDOCRINE: No hot or cold intolerance, sweating, polyuria, polydipsia or, polyphagia no thyroid problems ED Past Medical Hx - Past Medical History Hx Hypertension: Yes Hx Congestive Heart Failure: No Hx Diabetes: No Hx Headaches / Migraines: Yes Hx Asthma: No Hx COPD: No Additional medical history: chronic back pain - Surgical History Past Surgical History?: No - Social History Smoking Status: Current Every Day Smoker Substance Use Type: None - Medications Home Medications: Home Medications Medication Instructions Recorded Confirmed Last Taken Type Lisinopril/Hydrochlorothiazide 1 tab PO DAILY 06/19/14 02/10/17 1 Day Ago History [Zestoretic 20-25 mg] ~02/09/17 amLODIPine [Norvasc] 5 mg PO DAILY #30 tab 06/19/14 02/10/17 1 Day Ago Rx ~02/09/17 Metoprolol [Lopressor TAB] 25 mg PO BID #60 tablet 01/31/15 02/10/17 1 Day Ago Rx ~02/09/17 Ondansetron [Zofran ODT TAB] 4 mg PO Q8HR PRN #20 tab.rapdis 11/21/16 02/10/17 2 Weeks Ago Rx ~01/27/17 Methocarbamol [Robaxin TAB] 750 mg PO Q8H PRN #15 tablet 12/03/16 02/10/17 1 Month Ago Rx ~01/11/17 Aspirin [Aspirin EC] 325 mg PO DAILY #30 tablet. 02/11/17 Unknown Rx Zolpidem [Ambien] 5 mg PO QHS PRN #7 tablet 02/11/17 Unknown Rx Ibuprofen [Motrin] 600 mg PO Q8H PRN #20 tablet 06/17/17 Unknown Rx methOCARBAMOL [Robaxin TAB] 500 mg PO Q6H PRN #15 tablet 06/17/17 Unknown Rx traMADol [Ultram] 50 mg PO Q6HR PRN #12 tablet 06/17/17 Unknown Rx ED Physical Exam - General Limitations: Physical Limitation - Other Other exam information: GENERAL: Patient in no acute distress HEAD: Normocephalic, atraumatic EYES: PERRLA, EOM intact, no scleral icterus, visual avalos and acuity wnl HEART: Tachycardia. No murmur, S1-S2 are auscultated, pulses are symmetric LUNGS: bilateral breath sounds. No wheezing, rales, rhonchi ABDOMEN: Normal bowel sounds, no tenderness, no rebound, no guarding, no masses , no CVA tenderness MUSCULOSKELETAL: Right sided chest pain tenderness to palpation mild. No bruising. Normal joint range of motion, no redness, no swelling NEUROLOGIC: GCS 15, Alert and Oriented x3, Cranial nerves intact, normal sensation, normal strength, normal gait, no cerebellar deficit PSYCHIATRIC: No homicidal or suicidal ideation, no anxiety, no depression, no hallucinations SKIN: Skin is warm and dry, no wounds, no rashes ED Course Vital Signs 08/08/17 08/08/17 08/08/17 09:17 09:58 10:00 Temperature 98.3 F Pulse Rate 130 H 120 H 120 H Respiratory 19 18 23 Rate Blood Pressure 161/99 Blood Pressure [Left] O2 Sat by Pulse 100 98 98 Oximetry 08/08/17 10:01 Temperature 98.2 F Pulse Rate 117 H Respiratory 19 Rate Blood Pressure Blood Pressure 159/106 [Left] O2 Sat by Pulse 97 Oximetry ED Medical Decision Making - Lab Data Result diagrams: 08/08/17 09:38 08/08/17 09:38 Laboratory Results - last 24 hr 08/08/17 08/08/17 08/08/17 09:38 09:38 09:38 WBC 9.8 RBC 4.61 Hgb 13.9 Hct 41.6 MCV 90 MCH 30 MCHC 33 RDW 14.4 Plt Count 309 Lymph % (Auto) 5.4 L [place] % (Auto) 3.8 Eos % (Auto) 0.3 Baso % (Auto) 0.6 Lymph # 0.5 L [place] # 0.4 Eos # 0.0 Baso # 0.1 Seg Neutrophils % 89.9 H Seg Neutrophils # 8.8 H Sodium 138 Potassium 3.9 Chloride 98.4 Carbon Dioxide 25 Anion Gap 19 BUN 20 H Creatinine 0.7 Estimated GFR > 60 BUN/Creatinine Ratio 29 Glucose 103 H Calcium 9.7 Total Bilirubin Direct Bilirubin AST ALT Alkaline Phosphatase Total Creatine Kinase Troponin T < 0.010 Total Protein Albumin Albumin/Globulin Ratio 08/08/17 09:38 WBC RBC Hgb Hct MCV MCH MCHC RDW Plt Count Lymph % (Auto) [place] % (Auto) Eos % (Auto) Baso % (Auto) Lymph # [place] # Eos # Baso # Seg Neutrophils % Seg Neutrophils # Sodium Potassium Chloride Carbon Dioxide Anion Gap BUN Creatinine Estimated GFR BUN/Creatinine Ratio Glucose Calcium Total Bilirubin 0.40 Direct Bilirubin < 0.2 AST 32 ALT 30 Alkaline Phosphatase 94 Total Creatine Kinase 173 H Troponin T Total Protein 7.6 Albumin 3.6 L Albumin/Globulin Ratio 0.9 - Radiology Data Radiology results: report reviewed - Medical Decision Making Patient updated with results. Recommended further evaluation of tachycardia in the ER. Patient requests discharge. Risks/benefits/alternatives discussed including from tachycardia. Patient expressed understanding and request discharge. Recommend return if symptoms worsen. Critical care attestation.: If time is entered above; I have spent that time in minutes in the direct care of this critically ill patient, excluding procedure time. ED Disposition Clinical Impression: Left against medical advice, Tachycardia Rib fractures Qualifiers: Encounter type: initial encounter Rib fracture type: multiple ribs Fracture type: closed Laterality: right Qualified Code(s): S22.41XA - Multiple fractures of ribs, right side, initial encounter for closed fracture Fall Qualifiers: Encounter type: initial encounter Qualified Code(s): W19.XXXA - Unspecified fall, initial encounter Chest pain Qualifiers: Chest pain type: unspecified Qualified Code(s): R07.9 - Chest pain, unspecified Disposition: DC-07 LEFT AGAINST MED ADVICE Is pt being admited?: No Condition: Fair Instructions: Chest Pain (ED) Time of Disposition: 11:08
== END 2017-08-08 11:08 | disposition left against medical advice (07) ==
LOC: ED 08:59
DX: S22.41XA Multiple fractures of ribs, right side, initial encounter for closed fracture (principal); I10 Essential (primary) hypertension; G43.909 Migraine, unspecified, not intractable, without status migrainosus; M54.9 Dorsalgia, unspecified; G89.29 Other chronic pain; F17.200 Nicotine dependence, unspecified, uncomplicated; W01.198A Fall on same level from slipping, tripping and stumbling with subsequent striking against other object, initial encounter; Z79.82 Long term (current) use of aspirin; Z88.5 Allergy status to narcotic agent; Y93.89 Activity, other specified; Y92.89 Other specified places as the place of occurrence of the external cause; Y99.8 Other external cause status
CPT/HCPCS: 36415; 80048; 80074; 82550; 84484; 85025

== ENCOUNTER 2017-10-05 16:35 | Emergency (ER) | payer MEDICARE ==
[2017-10-05 16:42] VITALS: BP 162/99
[2017-10-05] MEDS ORDERED: TORADOL IM ONE (18:43)
--- NOTE | 2017-10-05 18:48 | Emergency Department Report ---
ED General Adult HPI - General Chief complaint: Fall Stated complaint: LEFT SIDE PAIN/HEADACHE Time Seen by Provider: 10/05/17 18:39 Source: patient Mode of arrival: Ambulatory Limitations: No Limitations - History of Present Illness Initial comments: Basis 66-year-old female who presents for right sided rib pain secondary to fall 2 months ago with right rib fractures states out of lortab pain is described as 5/10 with deep inspiration relieved by rest there is no sob no wheezing no new fall injury or trauma Onset/Timin -: month(s) Location: chest (chest wall ) Severity scale (0 -10): 4 Quality: aching Consistency: intermittent Improves with: rest Worsens with: movement, other (deep inspiration) Treatments Prior to Arrival: none - Related Data Home Medications Medication Instructions Recorded Confirmed Last Taken Lisinopril/Hydrochlorothiazide 1 tab PO DAILY 06/19/14 02/10/17 1 Day Ago [Zestoretic 20-25 mg] ~02/09/17 Previous Rx's Medication Instructions Recorded Last Taken Type amLODIPine [Norvasc] 5 mg PO DAILY #30 tab 06/19/14 1 Day Ago Rx ~02/09/17 Metoprolol [Lopressor TAB] 25 mg PO BID #60 tablet 01/31/15 1 Day Ago Rx ~02/09/17 Ondansetron [Zofran ODT TAB] 4 mg PO Q8HR PRN #20 tab.rapdis 11/21/16 2 Weeks Ago Rx ~01/27/17 Methocarbamol [Robaxin TAB] 750 mg PO Q8H PRN #15 tablet 12/03/16 1 Month Ago Rx ~01/11/17 Aspirin [Aspirin EC] 325 mg PO DAILY #30 tablet.dr 02/11/17 Unknown Rx Zolpidem [Ambien] 5 mg PO QHS PRN #7 tablet 02/11/17 Unknown Rx Ibuprofen [Motrin] 600 mg PO Q8H PRN #20 tablet 06/17/17 Unknown Rx methOCARBAMOL [Robaxin TAB] 500 mg PO Q6H PRN #15 tablet 06/17/17 Unknown Rx traMADol [Ultram] 50 mg PO Q6HR PRN #12 tablet 06/17/17 Unknown Rx Acetaminophen [Tylenol Extra 1,000 mg PO QID PRN #60 tablet 10/05/17 Unknown Rx Strength] Cyclobenzaprine [Flexeril] 10 mg PO BID PRN #30 tablet 10/05/17 Unknown Rx Lisinopril/Hydrochlorothiazide 1 tab PO QDAY #30 tab 10/05/17 Unknown Rx [Zestoretic 20-25 mg] Allergies Allergy/AdvReac Type Severity Reaction Status Date / Time tramadol Allergy Hives Verified 08/08/17 09:17 ED Review of Systems ROS: Stated complaint: LEFT SIDE PAIN/HEADACHE Other details as noted in HPI Constitutional: denies: chills, fever Eyes: denies: eye pain, eye discharge, vision change ENT: denies: ear pain, throat pain Respiratory: denies: cough, shortness of breath, wheezing Cardiovascular: denies: chest pain, palpitations Endocrine: no symptoms reported Gastrointestinal: denies: abdominal pain, nausea, diarrhea Genitourinary: denies: urgency, dysuria, discharge Musculoskeletal: denies: back pain, joint swelling, arthralgia Skin: denies: rash, lesions Neurological: denies: headache, weakness, paresthesias Psychiatric: denies: anxiety, depression Hematological/Lymphatic: denies: easy bleeding, easy bruising ED Past Medical Hx - Past Medical History Hx Hypertension: Yes Hx Congestive Heart Failure: No Hx Diabetes: No Hx Headaches / Migraines: Yes Hx Asthma: No Hx COPD: No Additional medical history: chronic back pain - Surgical History Past Surgical History?: No - Social History Smoking Status: Current Every Day Smoker Substance Use Type: None - Medications Home Medications: Home Medications Medication Instructions Recorded Confirmed Last Taken Type Lisinopril/Hydrochlorothiazide 1 tab PO DAILY 06/19/14 02/10/17 1 Day Ago History [Zestoretic 20-25 mg] ~02/09/17 amLODIPine [Norvasc] 5 mg PO DAILY #30 tab 06/19/14 02/10/17 1 Day Ago Rx ~02/09/17 Metoprolol [Lopressor TAB] 25 mg PO BID #60 tablet 01/31/15 02/10/17 1 Day Ago Rx ~02/09/17 Ondansetron [Zofran ODT TAB] 4 mg PO Q8HR PRN #20 tab.rapdis 11/21/16 02/10/17 2 Weeks Ago Rx ~01/27/17 Methocarbamol [Robaxin TAB] 750 mg PO Q8H PRN #15 tablet 12/03/16 02/10/17 1 Month Ago Rx ~01/11/17 Aspirin [Aspirin EC] 325 mg PO DAILY #30 tablet. 02/11/17 Unknown Rx Zolpidem [Ambien] 5 mg PO QHS PRN #7 tablet 02/11/17 Unknown Rx Ibuprofen [Motrin] 600 mg PO Q8H PRN #20 tablet 06/17/17 Unknown Rx methOCARBAMOL [Robaxin TAB] 500 mg PO Q6H PRN #15 tablet 06/17/17 Unknown Rx traMADol [Ultram] 50 mg PO Q6HR PRN #12 tablet 06/17/17 Unknown Rx Acetaminophen [Tylenol Extra 1,000 mg PO QID PRN #60 tablet 10/05/17 Unknown Rx Strength] Cyclobenzaprine [Flexeril] 10 mg PO BID PRN #30 tablet 10/05/17 Unknown Rx Lisinopril/Hydrochlorothiazide 1 tab PO QDAY #30 tab 10/05/17 Unknown Rx [Zestoretic 20-25 mg] ED Physical Exam - General Limitations: No Limitations General appearance: alert, in no apparent distress - Head Head exam: Present: atraumatic, normocephalic - Eye Eye exam: Present: normal appearance - ENT ENT exam: Present: mucous membranes moist - Neck Neck exam: Present: normal inspection - Respiratory Respiratory exam: Present: normal lung sounds bilaterally, chest wall tenderness (no deformity no swelling no ecchymosis no stepoff no flail chest no wheezing ). Absent: respiratory distress, wheezes, rales, rhonchi, stridor , accessory muscle use, prolonged expiratory - Cardiovascular Cardiovascular Exam: Present: regular rate, normal rhythm. Absent: systolic murmur, diastolic murmur, rubs, gallop - GI/Abdominal GI/Abdominal exam: Present: soft, normal bowel sounds. Absent: guarding, rebound, rigid, mass, bruit, pulsatile mass, hernia - Rectal Rectal exam: Present: deferred - Extremities Exam Extremities exam: Present: normal inspection, normal capillary refill - Back Exam Back exam: Present: normal inspection, full ROM. Absent: tenderness, CVA tenderness (R), CVA tenderness (L), muscle spasm, paraspinal tenderness, vertebral tenderness, rash noted - Neurological Exam Neurological exam: Present: alert, oriented X3, CN II-XII intact, normal gait, reflexes normal. Absent: motor sensory deficit - Psychiatric Psychiatric exam: Present: normal affect, normal mood - Skin Skin exam: Present: warm, dry, intact, normal color. Absent: rash ED Course Vital Signs 10/05/17 16:39 Temperature 99.2 F Pulse Rate 91 H Respiratory 20 Rate Blood Pressure 162/99 O2 Sat by Pulse 94 Oximetry ED Medical Decision Making - Medical Decision Making this is a 2 month old injury pt did not follow up with ortho as direct pt advise to follow up with orthopedics directed and take medications as prescribed , pt verbaliized agreement and understanding with discharge plan. Critical care attestation.: If time is entered above; I have spent that time in minutes in the direct care of this critically ill patient, excluding procedure time. ED Disposition Clinical Impression: Rib pain on right side Disposition: DC-01 TO HOME OR SELFCARE Is pt being admited?: No Does the pt Need Aspirin: No Condition: Good Instructions: Chest Pain (ED) Prescriptions: Acetaminophen [Tylenol Extra Strength] 1,000 mg PO QID PRN #60 tablet PRN Reason: pain Cyclobenzaprine [Flexeril] 10 mg PO BID PRN #30 tablet PRN Reason: Muscle Spasm Lisinopril/Hydrochlorothiazide [Zestoretic 20-25 mg] 1 tab PO QDAY #30 tab Referrals: [facility] [Outside] - 3-5 Days Forms: Work/School Release Form(ED) Time of Disposition: 18:58
== END 2017-10-05 19:03 | disposition home or self-care (01) ==
LOC: ED 16:35
DX: R07.81 Pleurodynia (principal); I10 Essential (primary) hypertension; G43.909 Migraine, unspecified, not intractable, without status migrainosus; G89.29 Other chronic pain; F17.200 Nicotine dependence, unspecified, uncomplicated; Z88.8 Allergy status to other drugs, medicaments and biological substances; Z79.82 Long term (current) use of aspirin; W19.XXXA Unspecified fall, initial encounter; Y93.89 Activity, other specified; Y99.8 Other external cause status; Y92.89 Other specified places as the place of occurrence of the external cause
CPT/HCPCS: 96372; 99282; J1885

== ENCOUNTER 2018-06-05 15:42 | Emergency (ER) | payer MEDICARE ==
--- NOTE | 2018-06-05 16:01 | Emergency Department Report ---
Chief Complaint: Extremity Problem,Nontraumatic Stated Complaint: RT HAND SWOLLEN Time Seen by Provider: 06/05/18 15:55 - HPI History of Present Illness: PT COMES TO ER STATING HER R WRIST HURTS THAT ALL OF THE SUDDEN HER WRIST DROPPED UPON REVIEW OF CHART I FOUND THIS NOTE EXCERPT DATING BACK TO 2016 DX IMP: 1. 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 The neuro findings are exclusively attributable to right radial nerve disfunction (sensory and motor). NOT stoke, not cervical radiculopathy. 2. Other dxs as above RECC: 1. No need to pursue stoke w/u, MRI etc 2. 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 3. Will need OPD neuro follow up in one month. Sx usually resolve completely in 1 - 3 months I(discussed with patient). No particular Rx. Pt may need a note re dx if she needs her right hand to work. 5. See no need for further neuro testing. 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 Due to findings the following was ordered: ED Disposition for MSE Condition: Stable
--- NOTE | 2018-06-05 16:26 | Emergency Department Report ---
Upper Extremity - HPI Chief Complaint: Extremity Problem,Nontraumatic Stated Complaint: RT HAND SWOLLEN Time Seen by Provider: 06/05/18 15:55 Upper Extremity: Right Wrist (right wrist pain and swelling), Right Hand (swelling) Occurred When: 3 Days Mechanism: Unsure Severity: moderate Symptoms: Yes Pain with Movement (7/10 right wrist), Yes Deformity (wrist drop), Yes Limited Range of Movement (pain with range of motion), Yes Weakness, Yes Swelling, No Numbness, No Bruising/Ecchymosis, No Laceration or Abrasion Other History: This is a 67-year-old female here reporting that she has deformity and pain in her right wrist 3 days. Patient has similar incident in 2017 and was seen by neurologist in house and referred to outpatient neurologists. Patient states she did not get to follow up with outpatient neurologist because she had an emergency. Her pain is 7 out of 10 and achy with tingling going up her forearm. Denies any chest pain or shortness of breath. Denies any neck pain or pain in her shoulder. Denies any trauma. Denies any fever or chills. ED Review of Systems ROS: Stated complaint: RT HAND SWOLLEN Other details as noted in HPI Constitutional: denies: chills Respiratory: denies: cough, shortness of breath, wheezing Cardiovascular: denies: chest pain, palpitations, edema, syncope Gastrointestinal: denies: nausea, vomiting Musculoskeletal: joint swelling, arthralgia. denies: back pain, myalgia Skin: denies: rash Neurological: weakness, paresthesias. denies: headache, numbness, confusion, abnormal gait, vertigo ED Past Medical Hx - Past Medical History Previous Medical History?: Yes Hx Hypertension: Yes Hx Congestive Heart Failure: No Hx Diabetes: No Hx Headaches / Migraines: Yes Hx Seizures: Yes Hx Asthma: No Hx COPD: No Additional medical history: chronic back pain - Surgical History Past Surgical History?: No - Family History Family history: hypertension - Social History Smoking Status: Current Every Day Smoker Substance Use Type: None - Medications Home Medications: Home Medications Medication Instructions Recorded Confirmed Last Taken Type Zolpidem [Ambien] 5 mg PO QHS PRN #7 tablet 02/11/17 12/20/17 Unknown Rx Acetaminophen [Acetaminophen TAB] 650 mg PO Q4H PRN #15 tablet 12/23/17 Unknown Rx Aspirin [Aspirin EC] 325 mg PO DAILY #30 tablet. 12/23/17 Unknown Rx AtorvaSTATin [Lipitor] 40 mg PO QHS #30 tablet 12/23/17 Unknown Rx Metoprolol [Lopressor TAB] 25 mg PO BID #60 tablet 12/23/17 Unknown Rx Nicotine [Habitrol] 7 mg TD QDAY #14 patch 12/23/17 Unknown Rx PANTOPRAZOLE SODIUM (nf) [Protonix 40 mg PO QDAY #30 packet 12/23/17 Unknown Rx GRANULES] Pregabalin [Lyrica] 25 mg PO QDAY #30 capsule 12/23/17 Unknown Rx amLODIPine [Norvasc] 5 mg PO DAILY #30 tab 12/23/17 Unknown Rx methOCARBAMOL [Robaxin TAB] 500 mg PO Q6H PRN #15 tablet 12/23/17 Unknown Rx oxyCODONE /ACETAMINOPHEN [Percocet 1 tab PO Q6H PRN #12 tablet 12/23/17 Unknown Rx 5/325 mg] Acetaminophen/Codeine [Tylenol 1 tab PO Q6H PRN #12 tab 06/05/18 Unknown Rx /Codeine # 3 tab] Gabapentin [Neurontin] 600 mg PO Q12H PRN #12 tablet 06/05/18 Unknown Rx Upper Extremity Exam - Exam General: Vital signs noted. No distress. Alert and acting appropriately. This is a 67-year-old female well-nourished well-developed in no acute distress. Head and Torso: No HEENT Abnormality, No Neck Tenderness, No Chest/Lungs Abnormality, No Abdominal Tenderness, No Back Tenderness Shoulder Exam: Yes Normal Range of Motion in Shoulder, No Shoulder Tenderness, No Clavicle Tenderness, No Shoulder Deformity, No AC Joint Tenderness Arm Exam: No Arm/Humerus Tenderness, No Arm Deformity Elbow: Yes Normal Range of Motion in Elbow, No Elbow Tenderness, No Elbow Deformity Forearm: No Forearm Tenderness, No Forearm Deformity, No Pain with Pronation, No Pain with Supination Wrist: Yes Wrist Tenderness (on both sides), Yes Wrist Deformity (wristdrop noted), No Normal ROM in Wrist (Limited range of motion due to pain.), No Snuffbox Tenderness, No Pain with Axial Thumb Compression Hand: Yes Normal ROM in Digit(s), No Hand Tenderness (mild swelling extending from right wrist), No Hand Deformity, No Digit Tenderness, No Digit(s) Deformity, No Tendon Dysfunction CMS Exam: Yes Normal Distal Pulses (+2 radial and ulnar pulses), Yes Normal Capillary Refill (less than 2 seconds), Yes Normal Distal Sensation, No Broken S kin ED Course Vital Signs 06/05/18 15:53 Temperature 98.3 F Pulse Rate 79 Respiratory 18 Rate Blood Pressure 169/109 O2 Sat by Pulse 97 Oximetry Vital Signs 06/05/18 06/05/18 15:53 17:35 Temperature 98.3 F Pulse Rate 79 Respiratory 18 20 Rate Blood Pressure 169/109 O2 Sat by Pulse 97 Oximetry Vital Signs 06/05/18 06/05/18 06/05/18 15:53 17:35 18:25 Temperature 98.3 F Pulse Rate 79 Respiratory 18 20 Rate Blood Pressure 169/109 Blood Pressure 148/92 [Left] O2 Sat by Pulse 97 Oximetry - Reevaluation(s) Reevaluation #1: 06/05/18 18:24 Patient received Decadron and Toradol injection but she went ahead and took [place] 5/325 one tablet by mouth and pains better. Please see procedure note for wrist splint - Orthopedic Splinting/Casting Injury #1 Side: right Upper Extremity Injury Location: wrist Upper Extremity Immobilizer: wrist splint Additional Comments: Patient with good color, sensation, movement to fingers of right hand status post splint placement ED Medical Decision Making - Radiology Data Radiology results: report reviewed, image reviewed interpreted by me: X-ray of right wrist reviewed by myself and Dr. Correa and no acute findings noted. Three-view x-ray right hand dictated by radiologist and reported to myself. See details below Findings [facility] [address] [place] [address] XRay Report Signed Patient: ROBINSON CRUZ MR#: [id number] : 1950 Acct:[id number] Age/Sex: 67 / F ADM Date: 06/05/18 Loc: ED Attending Dr: Ordering Physician: CARLITA MORIN Date of Service: 06/05/18 Procedure(s): XR hand 3+V RT Accession Number(s): [id number] cc: CARLITA MORIN Fluoro Time In Minutes: FINAL REPORT EXAM: XR HAND 3+V RT HISTORY: pain and swelling right hand TECHNIQUE: Four views right hand PRIORS: None. FINDINGS: No fracture is identified. No dislocation seen. Joint spaces are within normal limits. No erosive bony change identified. Carpal bones maintain normal alignment. Distal radius and ulna are intact. No radiopaque foreign bodies seen. IMPRESSION: Negative hand series Transcribed By: EMILIE Dictated By: GABRIELLE SIDDIQUI MD Electronically Authenticated By: GABRIELLE SIDDIQUI MD Signed Date/Time: 06/05/181843 DD/ 42 TD/TT: 06/05/181842 - Medical Decision Making This is a 7-year-old female here for redness drop and swallowing pain and had some numbness symptoms in 2017 where she was admitted inpatient and seen by neurologists who referred to her condition and wrist drop from her lying on her wrists. She was referred to outpatient neurology and she says she could not go because she had an emergency. Patient refused to take Decadron and Toradol [facility] room but she did take some [place] which relieved her pain. Her vital signs are stable and she is afebrile and she is requesting a refill on her gabapentin. Patient discharged home in stable condition with prescription for Tylenol 3 a weekend earlier tomorrow and gabapentin and to follow up with neurology as discussed. Her vital signs are stable and she is afebrile. - Differential Diagnosis fracture, dislocation, peripheral neuralgia, sprain, MSK pain Critical care attestation.: If time is entered above; I have spent that time in minutes in the direct care of this critically ill patient, excluding procedure time. ED Disposition Clinical Impression: Right wrist drop Wrist pain, acute Qualifiers: Laterality: right Qualified Code(s): M25.531 - Pain in right wrist Disposition: -01 TO HOME OR SELFCARE Is pt being admited?: No Does the pt Need Aspirin: No Condition: Stable Instructions: Wrist Injury (ED), Arthralgia (ED) Additional Instructions: Please follow up with neurology as discussed. Call on Friday to schedule an appointment and he will need to see within 2 days of appointment. Pain medication as prescribed please do not drive or operate machine while taking Tylenol 3 or gabapentin is these medication can cause drowsiness Please avoid lying or falling asleep on your extremity. If symptoms worsen, return to the emergency room Prescriptions: Acetaminophen/Codeine [Tylenol /Codeine # 3 tab] 1 tab PO Q6H PRN #12 tab PRN Reason: severe pain Gabapentin [Neurontin] 600 mg PO Q12H PRN #12 tablet PRN Reason: mild to moderate pain Referrals: WILLIAMS WING MD [Primary Care Provider] - 06/08/18 MAIRELLA GRIJALVA MD [Staff Physician] - 3-5 Days Forms: Work/School Release Form(ED)
[2018-06-05] MEDS ORDERED: NORCO 5/325 PO ONE (16:50)
[2018-06-05] MEDS ORDERED: DECADRON IM STA (16:50)
[2018-06-05] MEDS ORDERED: TORADOL IM ONE (16:50)
--- NOTE | 2018-06-05 18:44 | XRay Report ---
FINAL REPORT EXAM: XR HAND 3+V RT HISTORY: pain and swelling right hand TECHNIQUE: Four views right hand PRIORS: None. FINDINGS: No fracture is identified. No dislocation seen. Joint spaces are within normal limits. No erosive bon y change identified. Carpal bones maintain normal alignment. Distal radius and ulna are intact. No r adiopaque foreign bodies seen. IMPRESSION: Negative hand series
[2018-06-05 22:08] VITALS: BP 148/92
== END 2018-06-05 18:47 | disposition home or self-care (01) ==
LOC: ED 15:42
DX: M25.531 Pain in right wrist (principal)
CPT/HCPCS: 29125; 73130; 99284; J1100; J1885

== ENCOUNTER 2018-09-11 11:49 | Inpatient (IN) | payer MEDICARE ==
[2018-09-11] MEDS ORDERED: NACL 0.9% 1000 ML 1,000 ML IV ONE (12:02)
--- NOTE | 2018-09-11 12:02 | Event Note ---
ED Screening Note ED Screening Note: HYPOTENSION AND WEAKNESS ALSO POS SOB; NO CP FAMILY TOLD HER YEST SHE WAS ACTING FUNNY HER VOICE TO ME SOUNDS SLURRED NO FOCAL DEF THC NO ETOH NO CIG ALLERGY LISINOPRIL RX LISINOPIL- HCTZ PMH HTN [place] IN PAST This initial assessment/diagnostic orders/clinical plan/treatment(s) is/are subject to change based on patients health status, clinical progression and re- assessment by fellow clinical providers in the ED. Further treatment and workup at subsequent clinical providers discretion. Patient/guardian urged not to elope from the ED as their condition may be serious if not clinically assessed and managed. Initial orders include: CT LABS URINE [place] [employer]
--- NOTE | 2018-09-11 12:27 | Emergency Department Report ---
HPI - General Chief Complaint: Dizziness Time Seen by Provider: 09/11/18 11:57 - HPI HPI: 67-year-old -[place] female presents to the emergency department with a complaint of low blood pressure, generalized weakness and a headache. The patient was shopping over at [employer] across the street when she decided to check her blood pressure in one of the machines near the pharmacy and it was found to be very low. She spoke to the pharmacist there and was told to come here for further evaluation. She says that she checked her blood pressure since she has been feeling weak. She denies any vision change, slurred speech or any obvious neurological deficits. She does have a generalized headache. She has a past medical history of hypertension, migraines and chronic back pains. 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 She has a primary care physician but cannot curr ently remember their name. She is a tobacco smoker but denies any illicit drug use. ED Past Medical Hx - Past Medical History Previous Medical History?: Yes Hx Hypertension: Yes Hx Congestive Heart Failure: No Hx Diabetes: No Hx Headaches / Migraines: Yes Hx Seizures: No (pt denies) Hx Asthma: No Hx COPD: No Additional medical history: chronic back pain - Surgical History Past Surgical History?: No - Social History Smoking Status: Current Every Day Smoker Substance Use Type: None - Medications Home Medications: Home Medications Medication Instructions Recorded Confirmed Last Taken Type Zolpidem [Ambien] 5 mg PO QHS PRN #7 tablet 02/11/17 12/20/17 Unknown Rx Acetaminophen [Acetaminophen TAB] 650 mg PO Q4H PRN #15 tablet 12/23/17 Unknown Rx Aspirin [Aspirin EC] 325 mg PO DAILY #30 tablet. 12/23/17 Unknown Rx AtorvaSTATin [Lipitor] 40 mg PO QHS #30 tablet 12/23/17 Unknown Rx Metoprolol [Lopressor TAB] 25 mg PO BID #60 tablet 12/23/17 Unknown Rx Nicotine [Habitrol] 7 mg TD QDAY #14 patch 12/23/17 Unknown Rx PANTOPRAZOLE SODIUM (nf) [Protonix 40 mg PO QDAY #30 packet 12/23/17 Unknown Rx GRANULES] Pregabalin [Lyrica] 25 mg PO QDAY #30 capsule 12/23/17 Unknown Rx amLODIPine [Norvasc] 5 mg PO DAILY #30 tab 12/23/17 Unknown Rx methOCARBAMOL [Robaxin TAB] 500 mg PO Q6H PRN #15 tablet 12/23/17 Unknown Rx oxyCODONE /ACETAMINOPHEN [Percocet 1 tab PO Q6H PRN #12 tablet 12/23/17 Unknown Rx 5/325 mg] Acetaminophen/Codeine [Tylenol 1 tab PO Q6H PRN #12 tab 06/05/18 Unknown Rx /Codeine # 3 tab] Gabapentin [Neurontin] 600 mg PO Q12H PRN #12 tablet 06/05/18 Unknown Rx ED Review of Systems ROS: Stated complaint: LOW BP Other details as noted in HPI Comment: All other systems reviewed and negative Constitutional: weakness. denies: chills, fever Eyes: denies: eye pain, vision change ENT: denies: ear pain, throat pain Respiratory: denies: cough, shortness of breath Cardiovascular: denies: chest pain, palpitations Gastrointestinal: denies: abdominal pain, vomiting Genitourinary: denies: dysuria, discharge Musculoskeletal: denies: back pain, arthralgia Skin: denies: rash, lesions Neurological: headache. denies: numbness, paresthesias Physical Exam - Physical Exam Vital Signs: Vital Signs 09/11/18 11:59 Temperature 98.8 F Pulse Rate 97 H Respiratory 18 Rate Blood Pressure 85/52 [Left] Blood Pressure 84/50 [Right] O2 Sat by Pulse 94 Oximetry Physical Exam: GENERAL: The patient is well-developed well-nourished. HENT: Normocephalic. Atraumatic. Patient has moist mucous membranes. EYES: Extraocular motions are intact. Pupils equal reactive to light bilaterally. No nystagmus. NECK: Supple. Trachea is midline. CHEST/LUNGS: Clear to auscultation. There is no respiratory distress noted. HEART/CARDIOVASCULAR: Regular. There is no tachycardia. There is no murmur. ABDOMEN: Abdomen is soft, nontender. Patient has normal bowel sounds. There is no abdominal distention. SKIN: Skin is warm and dry. NEURO: The patient is awake, alert, and oriented. The patient is cooperative. The patient has no focal neurologic deficits. The patient has normal speech. Cranial nerves II through grossly intact. MUSCULOSKELETAL: There is no tenderness or deformity. There is no limitation range of motion. There is no evidence of acute injury. ED Course Vital Signs 09/11/18 11:59 Temperature 98.8 F Pulse Rate 97 H Respiratory 18 Rate Blood Pressure 85/52 [Left] Blood Pressure 84/50 [Right] O2 Sat by Pulse 94 Oximetry ED Medical Decision Making - Lab Data Result diagrams: 09/11/18 12:49 09/11/18 12:49 - EKG Data -: EKG Interpreted by Mi EKG shows normal: sinus rhythm, axis, intervals, QRS complexes (q waves to septal leads), ST-T waves Rate: normal - EKG Data When compared to previous EKG there are: no significant change Interpretation: unchanged when compared t (02/09/17) - Radiology Data Radiology results: report reviewed CT HEAD WITHOUT CONTRAST: HISTORY: Lightheadedness, dizziness. TECHNIQUE: Sequential 2.5mm images. COMPARISON: 12/19/17. FINDINGS: Cerebral Parenchyma: Within normal limits. Cerebellum: Within normal limits. Brainstem: Within normal limits. Ventricles: Normal. Sella: Normal. Extra-axial spaces: Normal. Basal Cisterns: Normal. Intracranial Hemorrhage: None. Midline Shift: None. Calvarium: Normal. Sinuses: Normal. Mastoid Air Cells: Normal. Visualized Orbits: Normal. IMPRESSION: Cranial CT scan within normal limits. Transcribed By: TTR Dictated By: MIGUELANGEL PATTERSON JR, MD Electronically Authenticated By: MIGUELANGEL PATTERSON JR, MD Signed Date/Time: 09/11/18 1237 - Medical Decision Making This patient presents to the emergency department with complaint of generalized weakness and some hypotension. Due to the generalized weakness, she had a CT scan of the head done that did not show any bleed, shift, mass, ischemia, or any other acute process. Patient's labs shows a creatinine of 3.1 with a GFR of 18 showing acute renal failure. The last time she was here, in 2017, she had norm al kidney function. The patient has an elevated troponin level. This may be secondary to her renal insufficiency, but was obtained secondary to the hypotension and weakness so there could be some cardiac etiology. She was given a liter of IV fluid so far with some improvement in the hypotension and does not appear to require any pressors at this time. However the patient will be admitted to the hospital for further evaluation and treatment and was accepted for admission by the hospitalist, Dr. Deluca. - Differential Diagnosis NH, orthostatic hypotension, TIA, sepsis Critical Care Time: Yes Critical care time in (mins) excluding proc time.: 31 Critical care attestation.: If time is entered above; I have spent that time in minutes in the direct care of this critically ill patient, excluding procedure time. Critical care time spent on this patient and during her initial evaluation, multiple re- evaluations, ordering and interpretation of labs and imaging, IVF resuscitation. There is both renal and cardiovascular dysfunction and without intervention there is the possibility of life-threatening decline. Critical Care Time: 31 minutes ED Disposition Clinical Impression: Weakness Acute renal failure Qualifiers: Acute renal failure type: unspecified Qualified Code(s): N17.9 - Acute kidney failure, unspecified Hypotension Qualifiers: Hypotension type: unspecified hypotension type Qualified Code(s): I95.9 - Hypotension, unspecified Disposition: DC-09 OP ADMIT IP TO THIS HOSP Is pt being admited?: Yes Condition: Serious Time of Disposition: 15:16
--- NOTE | 2018-09-11 12:41 | Cat Scan Report ---
CT HEAD WITHOUT CONTRAST: HISTORY: Lightheadedness, dizziness. TECHNIQUE: Sequential 2.5mm images. COMPARISON: 12/19/17. FINDINGS: Cerebral Parenchyma: Within normal limits. Cerebellum: Within normal limits. Brainstem: Within normal limits. Ventricles: Normal. Sella: Normal. Extra-axial spaces: Normal. Basal Cisterns: Normal. Intracranial Hemorrhage: None. Midline Shift: None. Calvarium: Normal. Sinuses: Normal. Mastoid Air Cells: Normal. Visualized Orbits: Normal. IMPRESSION: Cranial CT scan within normal limits.
[2018-09-11 13:02] LABS: Basophils # (Auto) 0.1 K/mm3 (0.0-0.1); Basophils % (Auto) 1.1 % (0.0-1.8); Eosinophils # (Auto) 0.2 K/mm3 (0.0-0.4); Eosinophils % (Auto) 2.1 % (0.0-4.3); Hematocrit 39.3 % (30.3-42.9); Hemoglobin 12.9 gm/dl (10.1-14.3); Lymphocytes # (Auto) 3.6 K/mm3 (1.2-5.4); Lymphocytes % (Auto) 34.2 % (13.4-35.0); Mean Corpuscular HGB Conc 33 % (30-34); Mean Corpuscular Volume 91 fl (79-97); Monocytes # (Auto) 1.1 K/mm3 (0.0-0.8); Monocytes % (Auto) 10.1 % (0.0-7.3); Platelet Count 284 K/mm3 (140-440); Red Blood Count 4.32 M/mm3 (3.65-5.03); Red Cell Distribution Width 15.8 % (13.2-15.2)
[2018-09-11 13:31] LABS: Alanine Aminotransferase 6 units/L (7-56); Albumin 3.5 g/dL (3.9-5); BUN/Creatinine Ratio 10; Blood Urea Nitrogen 32 mg/dL (7-17); Calcium 9.3 mg/dL (8.4-10.2); Hemolysis Index 30
[2018-09-11 13:47] LABS: Chol/HDL Ratio 3.52 %; HDL Cholesterol 44 mg/dL (40-59); LDL Cholesterol,Direct 98 mg/dL (50-130)
--- NOTE | 2018-09-11 14:08 | History and Physical Report ---
History of Present Illness Chief complaint: I dont feel good History of present illness: 67 YO Female with Nicotine Dependence, HTN, Migraine SEGOVIA, Chronic Lumbar Pain, Radiculopathy presents to ED for evaluation. Pt states that she experienced an acute onset of weakness and headache while shopping at a nearby drugstore. Pt had her blood pressure checked in the drugstore and was found to be hypotensive and was instructed by the drugstore pharmacist to seek further care. Pt acknowledges feeling warm and tired from walking around outside but not sweating, as well as decreased water intake. Pt transported to [facility] via private vehicle. Pt seen and evaluated in ED and found to have Acute renal failure, Volume depletion as well as Heat Exhaustion. Pt denies fever, chills, CP, Palpitations, vision change, slurred speech, productive cough, skin rash, or recent ill contacts. Pt admitted to ALEXIS unit, and initiated on IVF resuscitation therapy. Nephrology consulted in ED. Prior admission on 12/19/17 reviewed. All listed medication reconciled at time of admission. Past History Past Medical History: hypertension, migraines, other (Nicotine Dependence, Lumbar Pain) Past Surgical History: No surgical history Social history: single, smoking Family history: hypertension Medications and Allergies Allergies Allergy/AdvReac Type Severity Reaction Status Date / Time ALEXIS Inhibitors Allergy Severe Angioedema Verified 12/22/17 09:21 lisinopril Allergy Severe Angioedema Verified 12/19/17 13:10 tramadol Allergy Hives Verified 08/08/17 09:17 Home Medications Medication Instructions Recorded Confirmed Last Taken Type amLODIPine [Norvasc] 5 mg PO DAILY #30 tab 12/23/17 09/11/18 Unknown Rx Lisinopril/Hydrochlorothiazide 1 each PO DAILY 09/11/18 09/11/18 Unknown History [Zestoretic 20-25 mg] Omeprazole 40 mg PO DAILY 09/11/18 09/11/18 Unknown History Active Meds: Active Medications Sodium Chloride (Nacl 0.9% 1000 Ml) 1,000 mls @ 150 mls/hr IV BOLUS ONE Stop: 09/11/18 18:41 Last Admin: 09/11/18 13:36 Dose: 150 mls/hr Documented by: Review of Systems Constitutional: fatigue, weakness, no weight loss, no weight gain, no fever, no sweats Ears, nose, mouth and throat: no ear pain, no ear discharge, no tinnitis, no decreased hearing, no nose pain Breasts: no change in shape, no swelling, no mass Cardiovascular: no chest pain, no orthopnea, no palpitations, no rapid/irregular heart beat, no edema Respiratory: no cough, no cough with sputum, no excessive sputum, no hemoptysis Gastrointestinal: no nausea, no vomiting, no diarrhea, no constipation Genitourinary Female: no pelvic pain, no flank pain, no menorrhagia, no dysuria, no urinary frequency Rectal: no pain, no incontinence, no bleeding Musculoskeletal: no neck pain, no shooting arm pain, no arm numbness/tingling, no low back pain, no shooting leg pain Integumentary: no rash, no pruritis, no redness, no sores, no wounds Neurological: no paralysis, no parathesias, no numbness, no tingling, no seizures Psychiatric: no anxiety, no memory loss, no change in sleep habits, no sleep disturbances, no insomnia, no hypersomnia, no change in appetite Endocrine: no cold intolerance, no heat intolerance, no polyphagia, no excessive thirst, no polydipsia, no polyuria Hematologic/Lymphatic: no easy bruising, no easy bleeding, no lymphadenopathy, no lymphedema Allergic/Immunologic: no urticaria, no allergic rhinitis, no wheezing, no persistent infections Exam - Constitutional Vitals: Temp Pulse Resp BP Pulse Ox 98.8 F 97 H 18 85/52 94 09/11/18 11:59 09/11/18 11:59 09/11/18 11:59 09/11/18 11:59 09/11/18 11:59 General appearance: Present: mild distress - EENT Eyes: Present: PERRL ENT: hearing intact, clear oral mucosa - Neck Neck: Present: supple, normal ROM - Respiratory Respiratory effort: normal Respiratory: bilateral: CTA - Cardiovascular Heart Sounds: Present: S1 & S2. Absent: rub, click - Extremities Extremities: pulses symmetrical, No edema Peripheral Pulses: within normal limits - Abdominal General gastrointestinal: Present: soft, non-tender, non-distended, normal bowel sounds Female genitourinary: Present: normal - Integumentary Integumentary: Present: warm, dry, clammy, decreased turgor - Musculoskeletal Musculoskeletal: gait normal, strength equal bilaterally - Psychiatric Psychiatric: appropriate mood/affect, intact judgment & insight - Neurologic Neurologic: CNII-XII intact, moves all extremities Results - Labs CBC & Chem 7: 09/11/18 12:49 09/11/18 12:49 Labs: Abnormal lab results 09/11/18 09/11/18 Range/Units 12:49 12:49 RDW 15.8 H (13.2-15.2) % [place] % (Auto) 10.1 H (0.0-7.3) % [place] # 1.1 H (0.0-0.8) K/mm3 Sodium 135 L (137-145) mmol/L Carbon Dioxide 20 L (22-30) mmol/L BUN 32 H (7-17) mg/dL Creatinine 3.1 H (0.7-1.2) mg/dL Glucose 105 H (65-100) mg/dL ALT 6 L (7-56) units/L Troponin T 0.073 H (0.00-0.029) ng/mL Albumin 3.5 L (3.9-5) g/dL Assessment and Plan - Patient Problems (1) Acute renal failure Current Visit: Yes Status: Acute Qualifiers: Acute renal failure type: unspecified Qualified Code(s): N17.9 - Acute kidney failure, unspecified Plan to address problem: IVF resuscitation therapy, urine electrolytes, renal ultrasound bilaterally, nephrology consulted,monitor uop q shift, avoid nephrotoxic agents. (2) Heat exhaustion Current Visit: Yes Status: Acute Qualifiers: Encounter type: initial encounter Qualified Code(s): T67.5XXA - Heat exhaustion, unspecified, initial encounter Plan to address problem: IVF resuscitation therapy, monitor uop q shift, repeat bmp in am, monitor serum creatnine (3) Hyponatremia syndrome Current Visit: Yes Status: Acute Plan to address problem: IVF resuscitation therapy, repeat bmp in am. (4) Hypotension Current Visit: Yes Status: Acute Qualifiers: Hypotension type: unspecified hypotension type Qualified Code(s): I95.9 - Hypotension, unspecified Plan to address problem: IVF resuscitation therapy, supportive care. (5) DVT prophylaxis Current Visit: No Status: Acute Plan to address problem: SCD to BLE while in bed, prophylactic heparin
[2018-09-11] MEDS ORDERED: PROVENTIL IH PRN (14:13)
[2018-09-11] MEDS ORDERED: ZOFRAN IV PRN (14:13)
[2018-09-11] MEDS ORDERED: SODIUM CHLORIDE FLUSH SYRINGE 10 ML IV PRN (14:13)
[2018-09-11] MEDS ORDERED: TYLENOL PO PRN (14:13)
[2018-09-11] MEDS ORDERED: NACL 0.45% IV SCH (15:00)
[2018-09-11] MEDS: SODIUM CHLORIDE FLUSH SYRINGE 10 ML IV SCH ×2 (20:22→22:00)
[2018-09-11] MEDS: HEPARIN SUB-Q SCH (21:59)
[2018-09-12] MEDS ORDERED: NACL 0.9% 1000 ML 1,000 ML IV ONE (09:04)
[2018-09-12] MEDS: HEPARIN SUB-Q SCH (09:37)
[2018-09-12] MEDS: SODIUM CHLORIDE FLUSH SYRINGE 10 ML IV SCH (09:38)
[2018-09-12 09:45] LABS: Bacteria,Urine 1+ /HPF (Negative); Bilirubin,Urine NEG (Negative); Blood,Urine NEG (Negative); Color,Urine Yellow (Yellow); Mucus,Urine FEW /HPF; Protein,Urine <15 mg/dL mg/dL (Negative); Urobilinogen,Urine < 2.0 mg/dL (<2.0); WBC,Urine < 1.0 /HPF (0.0-6.0)
[2018-09-12] MEDS ORDERED: NON-FORMULARY (Omeprazole [Omeprazole] 40 MG) PO SCH (10:00)
[2018-09-12] MEDS ORDERED: NACL 0.9% 1000 ML 1,000 ML IV SCH (10:00)
[2018-09-12] MEDS ORDERED: PROTONIX PO SCH (10:00)
[2018-09-12 11:53] LABS: Amphetamine Screen,Urine PRESUMPTIVE NEGATIVE; Benzodiazepines Screen,Urine PRESUMPTIVE NEGATIVE; Cannabinoid Screen,Urine PRESUMPTIVE NEGATIVE; Cocaine Screen,Urine PRESUMPTIVE NEGATIVE; Opiate Screen,Urine PRESUMPTIVE NEGATIVE
--- NOTE | 2018-09-12 12:12 | Progress Note ---
Assessment and Plan Assessment and plan: Patient is a 67 YO Female with Nicotine Dependence, HTN, Migraine SEGOVIA, Chronic Lumbar Pain, Radiculopathy presents to ED for evaluationof acute onset of weakness and headache while at a nearby drugstore. She endorsed not taking adequate PO and occassional sweating, She was noted to be hypotensive Pt admitted to ALEXIS unit, and initiated on IVF resuscitation therapy. Nephrology consulted in ED. Prior admission on 12/19/17 reviewed. All listed medication reconciled at time of admission. EDISON secondary to vasomotor nephropathy ?Heat Exhaustion Hyponatremia Vasogenic shock secondary to dehydration Type 2 NSTEMI secondary to EDISON Atypical chest pain ?costochondritis Plan Continue supportive care Continue IV fluids ECHO REVIEW FROM LAST YEAR NOTED, EF 55-60% UDS Monitor Na level Check cardiac enzymes Renal Ultrasound DVT/GI prophy Plan discussed with Patient and nursing staff, anticipate discharge in am if remains stable Outpatient stress test will be recommended. History Interval history: Patient's and examined this morning and reports improvement. Discussed about any chest pain the patient has stasis reproducible but much improved today compared to yesterday. Family members concerned about patient's use of illicit drugs. According to assessment. Patient appears in in days to be able to answer questions appropriately. Hospitalist Physical - Physical exam Narrative exam: General appearance: Present: mild distress - EENT Eyes: Present: PERRL ENT: hearing intact, clear oral mucosa - Neck Neck: Present: supple, normal ROM - Respiratory Respiratory effort: normal Respiratory: bilateral: CTA - Cardiovascular Heart Sounds: Present: S1 & S2. Absent: rub, click - Extremities Extremities: pulses symmetrical, No edema Peripheral Pulses: within normal limits - Abdominal General gastrointestinal: Present: soft, non-tender, non-distended, normal bowel sounds Female genitourinary: Present: normal - Integumentary Integumentary: Present: warm, dry, clammy, decreased turgor - Musculoskeletal Musculoskeletal: gait normal, strength equal bilaterally - Psychiatric Psychiatric: appropriate mood/affect, intact judgment & insight - Neurologic Neurologic: CNII-XII intact, moves all extremities - Constitutional Vitals: Temp Pulse Resp BP Pulse Ox 99.0 F 86 17 108/65 91 09/12/18 07:33 09/12/18 10:00 09/12/18 10:00 09/12/18 08:49 09/12/18 10:00 General appearance: Present: mild distress Results - Labs CBC & Chem 7: 09/11/18 12:49 09/11/18 12:49 Labs: Laboratory Last Values WBC 10.6 K/mm3 (4.5-11.0) 09/11/18 12:49 RBC 4.32 M/mm3 (3.65-5.03) 09/11/18 12:49 Hgb 12.9 gm/dl (10.1-14.3) 09/11/18 12:49 Hct 39.3 % (30.3-42.9) 09/11/18 12:49 MCV 91 fl (79-97) 09/11/18 12:49 MCH 30 pg (28-32) 09/11/18 12:49 MCHC 33 % (30-34) 09/11/18 12:49 RDW 15.8 % (13.2-15.2) H 09/11/18 12:49 Plt Count 284 K/mm3 (140-440) 09/11/18 12:49 Lymph % (Auto) 34.2 % (13.4-35.0) 09/11/18 12:49 [place] % (Auto) 10.1 % (0.0-7.3) H 09/11/18 12:49 Eos % (Auto) 2.1 % (0.0-4.3) 09/11/18 12:49 Baso % (Auto) 1.1 % (0.0-1.8) 09/11/18 12:49 Lymph # 3.6 K/mm3 (1.2-5.4) 09/11/18 12:49 [place] # 1.1 K/mm3 (0.0-0.8) H 09/11/18 12:49 Eos # 0.2 K/mm3 (0.0-0.4) 09/11/18 12:49 Baso # 0.1 K/mm3 (0.0-0.1) 09/11/18 12:49 Seg Neutrophils % 52.5 % (40.0-70.0) 09/11/18 12:49 Seg Neutrophils # 5.5 K/mm3 (1.8-7.7) 09/11/18 12:49 Sodium 135 mmol/L (137-145) L 09/11/18 12:49 Potassium 4.4 mmol/L (3.6-5.0) 09/11/18 12:49 Chloride 100.2 mmol/L (98-107) 09/11/18 12:49 Carbon Dioxide 20 mmol/L (22-30) L 09/11/18 12:49 19 mmol/L 09/11/18 12:49 BUN 32 mg/dL (7-17) H 09/11/18 12:49 3.1 mg/dL (0.7-1.2) H 09/11/18 12:49 Estimated GFR 18 ml/min 09/11/18 12:49 10 % 09/11/18 12:49 Glucose 105 mg/dL (65-100) H 09/11/18 12:49 Calcium 9.3 mg/dL (8.4-10.2) 09/11/18 12:49 < 0.20 mg/dL (0.1-1.2) 09/11/18 12:49 AST 11 units/L (5-40) 09/11/18 12:49 ALT 6 units/L (7-56) L 09/11/18 12:49 74 units/L (35-129) 09/11/18 12:49 0.073 ng/mL (0.00-0.029) H 09/11/18 12:49 6.9 g/dL (6.3-8.2) 09/11/18 12:49 3.5 g/dL (3.9-5) L 09/11/18 12:49 1.0 % 09/11/18 12:49 Triglycerides 101 mg/dL (2-149) 09/11/18 12:49 Cholesterol 155 mg/dL (50-199) 09/11/18 12:49 98 mg/dL (50-130) 09/11/18 12:49 44 mg/dL (40-59) 09/11/18 12:49 3.52 % 09/11/18 12:49 Yellow (Yellow) 09/12/18 Unknown Clear (Clear) 09/12/18 Unknown 5.0 (5.0-7.0) 09/12/18 Unknown Ur Specific [place] 1.015 (1.003-1.030) 09/12/18 Unknown <15 mg/dl mg/dL (Negative) 09/12/18 Unknown Neg mg/dL (Negative) 09/12/18 Unknown Neg mg/dL (Negative) 09/12/18 Unknown Neg (Negative) 09/12/18 Unknown Neg (Negative) 09/12/18 Unknown Neg (Negative) 09/12/18 Unknown < 2.0 mg/dL (<2.0) 09/12/18 Unknown Ur Leukocyte Esterase Neg (Negative) 09/12/18 Unknown < 1.0 /HPF (0.0-6.0) 09/12/18 Unknown 1.0 /HPF (0.0-6.0) 09/12/18 Unknown U Epithel Cells (Auto) < 1.0 /HPF (0-13.0) 09/12/18 Unknown 1+ /HPF (Negative) 09/12/18 Unknown Few /HPF 09/12/18 Unknown Presumptive negative 09/12/18 11:32 Ur Barbiturates Screen Presumptive negative 09/12/18 11:32 Ur Phencyclidine Scrn Presumptive negative 09/12/18 11:32 Ur Amphetamines Screen Presumptive negative 09/12/18 11:32 U Benzodiazepines Scrn Presumptive negative 09/12/18 11:32 Presumptive negative 09/12/18 11:32 U Marijuana (THC) Screen Presumptive negative 09/12/18 11:32 Active Medications - Current Medications Current Medications: Generic Name Dose Route Start Last Admin Trade Name Freq PRN Reason Stop Dose Admin Acetaminophen 650 mg 09/11/18 14:13 Tylenol PO Q4H PRN Pain MILD(1-3)/Fever >100.5/SEGOVIA Albuterol 2.5 mg 09/11/18 14:13 Proventil IH Q4HRT PRN Shortness Of Breath Heparin Sodium (Porcine) 5,000 unit 09/11/18 22:00 09/12/18 09:37 Heparin SUB-Q 5,000 unit Q12HR VIANCA Administration Sodium Chloride 1,000 mls @ 125 mls/hr 09/12/18 10:00 09/12/18 09:38 Nacl 0.9% 1000 Ml IV 125 mls/hr DIRECT VIANCA Administration Ondansetron HCl 4 mg 09/11/18 14:13 Zofran IV Q8H PRN Nausea And Vomiting Pantoprazole Sodium 40 mg 09/12/18 10:00 09/12/18 09:37 Protonix PO 40 mg DAILY VIANCA Administration Sodium Chloride 10 ml 09/11/18 22:00 09/12/18 09:38 Sodium Chloride Flush Syringe 10 Ml IV 10 ml BID VIANCA Administration Sodium Chloride 10 ml 09/11/18 14:13 Sodium Chloride Flush Syringe 10 Ml IV PRN PRN LINE FLUSH
[2018-09-12 12:13] LABS: Methadone Screen,Urine PRESUMPTIVE POSITIVE
--- NOTE | 2018-09-12 12:51 | Consultation ---
History of Present Illness - Reason for Consult Consult date: 09/12/18 acute renal failure - History of Present Illness This is a a 67 year old female for evaluation of weakness, headache and Hy potension felt to be possibly from heat exhaustion and volume depletion. On evaluation patient had SBP in the 80's-90's. Head CT done that was negative. Pertinent labs revealed an elevated serum creatinine of 3.1. Baseline serum creatinine is ~0.8. Patient has history of Hypertension (was on Amlodipine and Lisinopril/HCTZ at home), Chronic lumbar pain and nicotine dependence. We are being consulted for management of this patient's Acute Renal Failure. Past History Past Medical History: hypertension, migraines, other (Nicotine Dependence, Lumbar Pain) Past Surgical History: No surgical history Social history: single, smoking Family history: hypertension Medications and Allergies Allergies Allergy/AdvReac Type Severity Reaction Status Date / Time ALEXIS Inhibitors Allergy Severe Angioedema Verified 12/22/17 09:21 lisinopril Allergy Severe Angioedema Verified 12/19/17 13:10 tramadol Allergy Hives Verified 08/08/17 09:17 Home Medications Medication Instructions Recorded Confirmed Last Taken Type amLODIPine [Norvasc] 5 mg PO DAILY #30 tab 12/23/17 09/11/18 Unknown Rx Lisinopril/Hydrochlorothiazide 1 each PO DAILY 09/11/18 09/11/18 Unknown History [Zestoretic 20-25 mg] Omeprazole 40 mg PO DAILY 09/11/18 09/11/18 Unknown History Active Meds: Active Medications Acetaminophen (Tylenol) 650 mg PO Q4H PRN PRN Reason: Pain MILD(1-3)/Fever >100.5/SEGOVIA Albuterol (Proventil) 2.5 mg IH Q4HRT PRN PRN Reason: Shortness Of Breath Heparin Sodium (Porcine) (Heparin) 5,000 unit SUB-Q Q12HR VIANCA Last Admin: 09/12/18 09:37 Dose: 5,000 unit Documented by: Sodium Chloride (Nacl 0.9% 1000 Ml) 1,000 mls @ 125 mls/hr IV DIRECT VIANCA Last Admin: 09/12/18 09:38 Dose: 125 mls/hr Documented by: Ondansetron HCl (Zofran) 4 mg IV Q8H PRN PRN Reason: Nausea And Vomiting Pantoprazole Sodium (Protonix) 40 mg PO DAILY [facility] Last Admin: 09/12/18 09:37 Dose: 40 mg Documented by: Sodium Chloride (Sodium Chloride Flush Syringe 10 Ml) 10 ml IV BID [facility] Last Admin: 09/12/18 09:38 Dose: 10 ml Documented by: Sodium Chloride (Sodium Chloride Flush Syringe 10 Ml) 10 ml IV PRN PRN PRN Reason: LINE FLUSH Review of Systems Constitutional: fatigue, weakness, no weight loss, no weight gain, no fever, no chills Ears, nose, mouth and throat: no ear pain, no ear discharge, no tinnitis, no decreased hearing, no nose pain, no nasal congestion Cardiovascular: no chest pain, no orthopnea, no palpitations, no rapid/irregular heart beat, no edema, no syncope, no shortness of breath Respiratory: no cough with sputum, no excessive sputum, no hemoptysis, no shortness of breath, no dyspnea on exertion Gastrointestinal: no abdominal pain, no nausea, no vomiting, no diarrhea, no constipation, no change in bowel habits, no hematemesis Genitourinary Female: no dysmenorrhea, no pelvic pain, no menorrhagia, no dysuria, no urinary frequency Musculoskeletal: low back pain, other (chronic back pain history), no neck stiffness, no neck pain, no shooting arm pain, no arm numbness/tingling Integumentary: no rash, no pruritis, no redness, no sores Neurological: weakness, no head injury, no transient paralysis, no paralysis, no tingling, no seizures, no syncope, no tremors Psychiatric: no memory loss, no change in sleep habits, no sleep disturbances, no insomnia, no hypersomnia Endocrine: no cold intolerance, no heat intolerance, no polyphagia, no excessive thirst, no polydipsia, no polyuria, no nocturia Exam - Vital Signs Vital signs: Vital Signs Temp Pulse Resp BP Pulse Ox 98.8 F 97 H 18 85/52 94 09/11/18 11:59 09/11/18 11:59 09/11/18 11:59 09/11/18 11:59 09/11/18 11:59 Results - Lab Results 09/11/18 12:49 09/11/18 12:49 Most recent lab results Calcium 9.3 mg/dL (8.4-10.2) 09/11/18 12:49 Assessment and Plan Acute Renal Failure likely secondary to Prerenal Etiology secondary to Volume Depletion and Hypotension: -Serum creatinine yesterday was 3.1 on admission. Baseline serum creatinine 0.8 -Obtain BMP level today to assess current renal function -Renal Ultrasound is pending -Will obtain urine lytes -Continue on IVF with NS@ 125 ml/hr -Encouage po fluid intake -Hold home Lisinopril/HCTZ -Obtain daily weights -Monitor I/O's -Renally dose medications -Will monitor renal function closely History of Hypertension: Now Hypotension -Home blood pressure medications are on hold -Was on Amlodipine and Lisinopril/HCTZ at home -On IVF with NS@ 125 ml/hr -Monitor BP
--- NOTE | 2018-09-12 13:22 | Ultrasound Report ---
PROCEDURE: US RENAL BILAT TECHNIQUE: Transverse longitudinal sonograms obtained. HISTORY: martina COMPARISONS: Abdominal CT November 07, 2016 FINDINGS: Right kidney measures 12.2 x 5.2 x 6.0 cm. Cortex measures 1.4 cm. 1.7 cm simple cyst superior pole. No hydronephrosis. Increased cortical echogenicity. Left kidney measures 10.3 x 5.6 x 5.0 cm. Cortex measures 1.5 cm. 1.8 cm simple cyst superior pole. N o hydronephrosis. Increased cortical echogenicity. Bladder appears unremarkable. 1.8 cm hypodense nodule superior to the left kidney corresponding to adrenal adenoma identified prior CT IMPRESSION: Bilateral kidneys demonstrate increased cortical echogenicity compatible with medical renal disease. No hydronephrosis Bilateral cysts are noted. Cysts were present prior CT Nodule superior to the left kidney compatible with known adrenal adenoma Bladder appears unremarkable. This document is electronically signed by Hao Zaldivar MD., September 12 2018 02:21:04 PM ET
[2018-09-12 21:41] VITALS: BP 136/89
[2018-09-12 23:03] LABS: Creatinine,Urine 164.7 mg/dL (0.1-20.0)
[2018-09-13] MEDS: SODIUM CHLORIDE FLUSH SYRINGE 10 ML IV SCH (00:48)
[2018-09-13] MEDS: HEPARIN SUB-Q SCH (00:48)
--- NOTE | 2018-09-13 07:06 | Event Note ---
Date: 09/12/18 I was called to the floor because patient threatened to leave AMA. Patient was found at the nursing station, alert and oriented 3, coherent, she states she just wants to leave to go home, she feels better, she wants to go home. She had already called her who was waiting for her, he tried to convince her to stay, but she refused and became argumentative and ask him to take her home. The refused to sign the AMA form, patient signs the form and leave with her .
--- NOTE | 2018-09-13 11:08 | Discharge Summary ---
Providers - Providers Date of Admission: 09/11/18 14:13 Attending physician: NAOMI SERRATO MD 09/12/18 08:25 Consult to Physician [CONS] Routine Comment: Consulting Provider: NICHO BRISCOE Physician Instructions: Reason For Exam: EDISON Primary care physician: WILLIAMS WING Hospitalization Reason for admission: edison Condition: Serious Hospital course: Patient is a 67 YO Female with Nicotine Dependence, HTN, Migraine SEGOVIA, Chronic Lumbar Pain, Radiculopathy presents to ED for evaluationof acute onset of weakness and headache while at a nearby drugstore. She endorsed not taking adequate PO and occassional sweating, She was noted to be hypotensive Pt admitted to ALEXIS unit, and initiated on IVF resuscitation therapy. Nephrology consulted in ED. Prior admission on 12/19/17 reviewed. All listed medication reconciled at time of admission. EDISON secondary to vasomotor nephropathy ?Heat Exhaustion Hyponatremia Vasogenic shock secondary to dehydration Type 2 NSTEMI secondary to EDISON Atypical chest pain ?costochondritis Plan Continue supportive care Continue IV fluids ECHO REVIEW FROM LAST YEAR NOTED, EF 55-60% UDS Monitor Na level Check cardiac enzymes Renal Ultrasound DVT/GI prophy Plan discussed with Patient and nursing staff, anticipate discharge in am if remains stable Outpatient stress test will be recommended. above is the last documented, note. Patient signed out AMA. Please see AMA documentation Disposition: [id number] LEFT AGAINST MED ADVICE Core Measure Documentation - Palliative Care Palliative Care/ Comfort Measures: Not Applicable - Core Measures Any of the following diagnoses?: none Exam - Constitutional Vitals: Temp Pulse Resp BP Pulse Ox 97.6 F 88 18 136/89 94 09/12/18 20:24 09/12/18 22:00 09/12/18 22:00 09/12/18 20:24 09/12/18 22:00 Plan Follow up with: WILLIAMS WING MD [Primary Care Provider] - 3-5 Days
== END 2018-09-13 00:05 | disposition left against medical advice (07) | DRG 682 ==
LOC: ED 11:49 → 2B-ACE 14:13
PROVIDERS: ADMIT Internal Medicine; ATTEND Internal Medicine
DX: N17.0 Acute kidney failure with tubular necrosis (principal); I21.A1 Myocardial infarction type 2; E87.1 Hypo-osmolality and hyponatremia; I95.9 Hypotension, unspecified; F17.210 Nicotine dependence, cigarettes, uncomplicated; I10 Essential (primary) hypertension; Z53.21 Procedure and treatment not carried out due to patient leaving prior to being seen by health care provider; T67.5XXA Heat exhaustion, unspecified, initial encounter; X58.XXXA Exposure to other specified factors, initial encounter; E86.9 Volume depletion, unspecified; G43.909 Migraine, unspecified, not intractable, without status migrainosus; G89.29 Other chronic pain; Z82.49 Family history of ischemic heart disease and other diseases of the circulatory system; Z88.3 Allergy status to other anti-infective agents; Z88.8 Allergy status to other drugs, medicaments and biological substances; Y93.89 Activity, other specified; Y92.89 Other specified places as the place of occurrence of the external cause; Y99.8 Other external cause status; Z88.6 Allergy status to analgesic agent; Z71.6 Tobacco abuse counseling
CPT/HCPCS: 36415; 70450; 76770; 80048; 80053; 80061; 80307; 81001; 82570; 84156; 84300; 84484; 85025; 93005; 93010; 94760; 96360; 99406; G0378; J1644; J7030

== ENCOUNTER 2018-10-06 10:03 | Inpatient (IN) | payer MEDICARE ==
[2018-10-06] MEDS ORDERED: DIPRIVAN 10 MG/ML IV ONE ×2 (10:24→16:10)
[2018-10-06] MEDS ORDERED: LIDOCAINE VISCOUS 2% ONE (10:29)
[2018-10-06] MEDS ORDERED: XYLOCAINE TOPICAL 2% 5ML ONE (10:30)
[2018-10-06] MEDS ORDERED: VICKS SINEX ONE (10:31)
[2018-10-06] MEDS ORDERED: NACL 0.9% 500 ML 500 ML IV ONE (10:47)
[2018-10-06] MEDS ORDERED: ADRENALINE P/F SUB-Q ONE (10:47)
[2018-10-06] MEDS ORDERED: VASELINE LIP THERAPY TP PRN (10:49)
[2018-10-06] MEDS ORDERED: SUBLIMAZE IV PRN (10:49)
[2018-10-06] MEDS ORDERED: NACL 0.9% 500 ML IV PRN (10:49)
[2018-10-06] MEDS ORDERED: ARTIFICIAL TEARS OPHTH OINT OU PRN (10:49)
--- NOTE | 2018-10-06 10:50 | Event Note ---
Date: 10/06/18 (INTUBATION) Called to ER21 for intubation in patient with angioedema Meds: Lidocaine 100 mg, Ketamine 100 mg, Propofol 50 +50 mg, Afrin nose spray Attempted FOB nasal then Glidescope X 1 6.0 OETT @ 22 cm +CO2 and BBS. EDMD present at BS
--- NOTE | 2018-10-06 10:52 | Emergency Department Report ---
ED General Adult HPI - General Chief complaint: Allergic Reaction Stated complaint: SWOLLEN TONGUE Time Seen by Provider: 10/06/18 10:46 Source: EMS (ems notes not available at time of chart dictation. Verbal report received from EMS), RN notes reviewed, old records reviewed Mode of arrival: Stretcher Limitations: Physical Limitation - History of Present Illness Initial comments: This is a 67-year-old female. Her past medical history includes nicotine dependence, hypertension, migraine headaches, chronic lumbar pain, radiculopathy, vasomotor nephropathy. Patient brought to the hospital by emergency medical services for presumed ALEXIS inhibitor angioedema. The patient has a grossly swollen tongue, and is not able to provide history. History o btained from EMS. EMS indicates they were called for tongue swelling. They state patient is ambulatory in the field. Patient treated with Pepcid, Benadryl, Solu-Medrol, subcutaneous tissues epinephrine 1 in the field. EMS verbally indicates that some swelling has progressively increased since their initial encounter. Patient is drooling. Upon arrival to the emergency room, the patient has a grossly swollen and distorted tongue, is drooling, and does not respond to additional 2 doses of subcutaneous epinephrine. Decision is made to prophylactically intubate to protect airway. Nasal tracheal intubation is attempted by anesthesiology, please see their documentation. Patient transiently desaturated, received [id number] ventilation, and then was intubated with a kaleidoscope and a 6.0 endotracheal tube by anesthesiology. Patient is currently intubated, sedated, and no additional history is available at this time. -: unknown Radiation: other Quality: other Consistency: other Improves with: other Worsens with: other Associated Symptoms: other - Related Data Home Medications Medication Instructions Recorded Confirmed Last Taken Lisinopril/Hydrochlorothiazide 1 each PO DAILY 09/11/18 09/11/18 Unknown [Zestoretic 20-25 mg] Omeprazole 40 mg PO DAILY 09/11/18 09/11/18 Unknown Previous Rx's Medication Instructions Recorded Last Taken Type amLODIPine [Norvasc] 5 mg PO DAILY #30 tab 12/23/17 Unknown Rx Allergies Allergy/AdvReac Type Severity Reaction Status Date / Time ALEXIS Inhibitors Allergy Severe Angioedema Verified 12/22/17 09:21 lisinopril Allergy Severe Angioedema Verified 12/19/17 13:10 tramadol Allergy Hives Verified 08/08/17 09:17 ED Review of Systems ROS: Stated complaint: SWOLLEN TONGUE Other details as noted in HPI Comment: Unobtainable due to pts medical conditions ED Past Medical Hx - Past Medical History Hx Hypertension: Yes Hx Congestive Heart Failure: No Hx Diabetes: No Hx Headaches / Migraines: Yes Hx Seizures: No (pt denies) Hx Asthma: No Hx COPD: No Additional medical history: chronic back pain - Social History Smoking Status: Unknown if ever smoked - Medications Home Medications: Home Medications Medication Instructions Recorded Confirmed Last Taken Type amLODIPine [Norvasc] 5 mg PO DAILY #30 tab 12/23/17 09/11/18 Unknown Rx Lisinopril/Hydrochlorothiazide 1 each PO DAILY 09/11/18 09/11/18 Unknown History [Zestoretic 20-25 mg] Omeprazole 40 mg PO DAILY 09/11/18 09/11/18 Unknown History ED Physical Exam - General Limitations: No Limitations, Physical Limitation General appearance: alert, in distress, obese - Head Head exam: Present: atraumatic, normocephalic - Eye Eye exam: Present: normal appearance, EOMI - ENT ENT exam: Present: mucous membranes moist, normal external ear exam, other (prior to intubation, the patient has a grossly swollen and edematous tongue. The patient is drooling.) - Neck Neck exam: Present: normal inspection, full ROM. Absent: tenderness, meningism us - Respiratory Respiratory exam: Present: normal lung sounds bilaterally. Absent: respiratory distress, wheezes, rales, rhonchi, stridor - Cardiovascular Cardiovascular Exam: Present: normal rhythm, tachycardia, normal heart sounds. Absent: systolic murmur, diastolic murmur, rubs, gallop - GI/Abdominal GI/Abdominal exam: Present: soft. Absent: distended, tenderness, guarding, rebound, rigid, pulsatile mass - Extremities Exam Extremities exam: Present: normal inspection, full ROM, other (2+ pulses noted in the bilateral upper, lower extremities. Compartments soft. No long bony tenderness. The pelvis is stable.). Absent: pedal edema, calf tenderness - Back Exam Back exam: Present: normal inspection, full ROM. Absent: tenderness, CVA tenderness (R), CVA tenderness (L), paraspinal tenderness, vertebral tenderness - Neurological Exam Neurological exam: Present: alert, other (there is no facial droop. The tongue is midline. Patient moving 4 extremities spontaneously.) - Psychiatric Psychiatric exam: Present: normal affect, normal mood - Skin Skin exam: Present: warm, dry, intact, normal color. Absent: rash ED Course Vital Signs 10/06/18 10/06/18 10/06/18 12:02 12:15 12:30 Pulse Rate 96 H 91 H 92 H Respiratory 22 22 19 Rate Blood Pressure 96/56 95/57 O2 Sat by Pulse 100 100 100 Oximetry 10/06/18 10/06/18 12:45 13:00 Pulse Rate 108 H 99 H Respiratory 21 22 Rate Blood Pressure 151/83 104/61 O2 Sat by Pulse 100 100 Oximetry - Reevaluation(s) Reevaluation #1: 10/06/18 11:18 Differential diagnosis, including but not limited to: ALEXIS inhibitor related angioedema Assessment and plan call 67-year-old female with tongue swelling and presumed ALEXIS inhibitor related angioedema, now intubated for airway protection. Patient will be ventilated on a lung protective strategy. She will be sedated with propofol and fentanyl. Screening laboratory studies are pending. Patient is somewhat tachycardic and hypertensive after ketamine. Hospital physician will be paged to arrange admission. Critical care physician is paged to arrange placement into the intensive care unit. Reevaluation #2: 10/06/18 14:04 Laboratory studies reviewed and appreciated. Leukocytosis likely secondary to stress reaction. Dr. Deluca, Hospital physician, to admit patient to the medical service. Discussed with critical care physician, Dr. Christy, who agrees with placement into the intensive care unit. ED Medical Decision Making - Lab Data Result diagrams: 10/06/18 11:00 10/06/18 11:00 Lab Results 10/06/18 Range/Units 11:00 WBC 14.2 H (4.5-11.0) K/mm3 RBC 4.93 (3.65-5.03) M/mm3 Hgb 14.1 (10.1-14.3) gm/dl Hct 45.2 H (30.3-42.9) % MCV 92 (79-97) fl MCH 29 (28-32) pg MCHC 31 (30-34) % RDW 16.0 H (13.2-15.2) % Plt Count 334 (140-440) K/mm3 Lymph % (Auto) 27.8 (13.4-35.0) % [place] % (Auto) 8.6 H (0.0-7.3) % Eos % (Auto) 0.8 (0.0-4.3) % Baso % (Auto) 0.5 (0.0-1.8) % Lymph # 3.9 (1.2-5.4) K/mm3 [place] # 1.2 H (0.0-0.8) K/mm3 Eos # 0.1 (0.0-0.4) K/mm3 Baso # 0.1 (0.0-0.1) K/mm3 Seg Neutrophils % 62.3 (40.0-70.0) % Seg Neutrophils # 8.8 H (1.8-7.7) K/mm3 Vital Signs 10/06/18 10/06/18 10/06/18 12:02 12:15 12:30 Pulse Rate 96 H 91 H 92 H Respiratory 22 22 19 Rate Blood Pressure 96/56 95/57 O2 Sat by Pulse 100 100 100 Oximetry 10/06/18 10/06/18 12:45 13:00 Pulse Rate 108 H 99 H Respiratory 21 22 Rate Blood Pressure 151/83 104/61 O2 Sat by Pulse 100 100 Oximetry Lab Results 10/06/18 10/06/18 10/06/18 Range/Units 11:00 11:00 11:00 WBC 14.2 H (4.5-11.0) K/mm3 RBC 4.93 (3.65-5.03) M/mm3 Hgb 14.1 (10.1-14.3) gm/dl Hct 45.2 H (30.3-42.9) % MCV 92 (79-97) fl MCH 29 (28-32) pg MCHC 31 (30-34) % RDW 16.0 H (13.2-15.2) % Plt Count 334 (140-440) K/mm3 Lymph % (Auto) 27.8 (13.4-35.0) % [place] % (Auto) 8.6 H (0.0-7.3) % Eos % (Auto) 0.8 (0.0-4.3) % Baso % (Auto) 0.5 (0.0-1.8) % Lymph # 3.9 (1.2-5.4) K/mm3 [place] # 1.2 H (0.0-0.8) K/mm3 Eos # 0.1 (0.0-0.4) K/mm3 Baso # 0.1 (0.0-0.1) K/mm3 Seg Neutrophils % 62.3 (40.0-70.0) % Seg Neutrophils # 8.8 H (1.8-7.7) K/mm3 PT 12.1 L (12.2-14.9) Sec. INR 0.92 (0.87-1.13) APTT 24.4 (24.2-36.6) Sec. POC ABG pH (7.35-7.45) POC ABG pCO2 (35-45) POC ABG pO2 (80-105) POC ABG HCO3 (22-26 mml/L) POC ABG Total CO2 (23-27mmol/L) POC ABG O2 Sat POC ABG Base Excess ((-2) - (+3)mmol/L) FiO2 % Sodium 143 (137-145) mmol/L Potassium 3.4 L (3.6-5.0) mmol/L Chloride 100.6 (98-107) mmol/L Carbon Dioxide 25 (22-30) mmol/L Anion Gap 21 mmol/L BUN 26 H (7-17) mg/dL Creatinine 1.5 H (0.7-1.2) mg/dL Estimated GFR 42 ml/min BUN/Creatinine Ratio 17 % Glucose 138 H (65-100) mg/dL Calcium 10.4 H (8.4-10.2) mg/dL Magnesium 1.90 (1.7-2.3) mg/dL 10/06/18 Range/Units 11:39 WBC (4.5-11.0) K/mm3 RBC (3.65-5.03) M/mm3 Hgb (10.1-14.3) gm/dl Hct (30.3-42.9) % MCV (79-97) fl MCH (28-32) pg MCHC (30-34) % RDW (13.2-15.2) % Plt Count (140-440) K/mm3 Lymph % (Auto) (13.4-35.0) % [place] % (Auto) (0.0-7.3) % Eos % (Auto) (0.0-4.3) % Baso % (Auto) (0.0-1.8) % Lymph # (1.2-5.4) K/mm3 [place] # (0.0-0.8) K/mm3 Eos # (0.0-0.4) K/mm3 Baso # (0.0-0.1) K/mm3 Seg Neutrophils % (40.0-70.0) % Seg Neutrophils # (1.8-7.7) K/mm3 PT (12.2-14.9) Sec. INR (0.87-1.13) APTT (24.2-36.6) Sec. POC ABG pH 7.262 L (7.35-7.45) POC ABG pCO2 61.8 H (35-45) POC ABG pO2 148 H (80-105) POC ABG HCO3 27.9 (22-26 mml/L) POC ABG Total CO2 30 (23-27mmol/L) POC ABG O2 Sat 99 POC ABG Base Excess 1 ((-2) - (+3)mmol/L) FiO2 50 % Sodium (137-145) mmol/L Potassium (3.6-5.0) mmol/L Chloride (98-107) mmol/L Carbon Dioxide (22-30) mmol/L Anion Gap mmol/L BUN (7-17) mg/dL Creatinine (0.7-1.2) mg/dL Estimated GFR ml/min BUN/Creatinine Ratio % Glucose (65-100) mg/dL Calcium (8.4-10.2) mg/dL Magnesium (1.7-2.3) mg/dL - EKG Data -: EKG Interpreted by Me EKG shows normal: sinus rhythm Rate: tachycardia - EKG Data 10/06/18 11:20 This is a sinus tachycardia, 146 beats per minute, rightward axis deviation, QTC within normal limits, atrial enlargement, poor R progression, this is an abnormal EKG, this is not consistent with ST elevation myocardial infarction, appears to be grossly unchanged from prior EKG from 09/11/2018. - Radiology Data Radiology results: image reviewed interpreted by me: X-ray of the chest shows endotracheal tube just below the level of the edil. Tube is advanced 2 cm by respiratory therapy at my verbal direction. Critical Care Time: Yes Critical care time in (mins) excluding proc time.: 60 Critical care attestation.: If time is entered above; I have spent that time in minutes in the direct care of this critically ill patient, excluding procedure time. ED Disposition Clinical Impression: Angioedema, Respiratory failure Disposition: [id number] OP ADMIT IP TO THIS HOSP Is pt being admited?: Yes Condition: Critical
[2018-10-06] MEDS ORDERED: XYLOCAINE TOPICAL 2% 30ML TP ONE (11:00)
[2018-10-06] MEDS: DIPRIVAN 10 MG/ML 1,000 MG/100 ML BOTTLE IV SCH (11:00)
[2018-10-06] MEDS ORDERED: KETALAR IV ONE (11:00)
[2018-10-06] MEDS ORDERED: KETALAR ONE (11:12)
[2018-10-06] MEDS ORDERED: DIPRIVAN 10 MG/ML 1,000 MG/100 ML BOTTLE IV ONE ×3 (11:15→23:32)
[2018-10-06 11:19] LABS: Basophils # (Auto) 0.1 K/mm3 (0.0-0.1); Basophils % (Auto) 0.5 % (0.0-1.8); Eosinophils # (Auto) 0.1 K/mm3 (0.0-0.4); Eosinophils % (Auto) 0.8 % (0.0-4.3); Hematocrit 45.2 % (30.3-42.9); Hemoglobin 14.1 gm/dl (10.1-14.3); Lymphocytes # (Auto) 3.9 K/mm3 (1.2-5.4); Lymphocytes % (Auto) 27.8 % (13.4-35.0); Mean Corpuscular HGB Conc 31 % (30-34); Mean Corpuscular Volume 92 fl (79-97); Monocytes # (Auto) 1.2 K/mm3 (0.0-0.8); Monocytes % (Auto) 8.6 % (0.0-7.3); Platelet Count 334 K/mm3 (140-440); Red Blood Count 4.93 M/mm3 (3.65-5.03)
[2018-10-06 11:28] LABS: INR 0.92 (0.87-1.13); Partial Thromboplastin Time 24.4 Sec. (24.2-36.6)
[2018-10-06 11:55] LABS: Calcium 10.4 mg/dL (8.4-10.2)
--- NOTE | 2018-10-06 11:59 | History and Physical Report ---
History of Present Illness Chief complaint: her tongue was swelling up this morning. History of present illness: 67 YO Female with Nicotine Dependence, HTN, Migraine SEGOVIA, Chronic Lumbar Pain, Radiculopathy, Nicotine Dependence presents to ED for evaluation. Pt is intubated and on vent support at time of my exam. Pt son is at bedside and provides history. As per son, the patient has developed worsening tongue swelling today. EMS notified, and upon arrival the patient was found to be ambulatory, and in very mild distress. Pt transported to [facility]. EMS reports that patient swelling worsened during transit. Pt seen and evaluated upon arrival to ED and found to have Angioedema. Pt found to have tongue swelling, drooling, and inability to phonate as well as handle her secretions. Pt intubated for airway protection. Pt treated with IV steroid therapy. Pt admitted to ICU. No reports of fever, chills, CP, Palpitations, vision change, slurred speech, productive cough, skin rash, or recent ill contacts. Prior admission on 09/11/18 reviewed. All listed medication reconciled at time of admission. Past History Past Surgical History: No surgical history, Other (reviewed) Social history: single Family history: no significant family history (reviewed) Medications and Allergies Allergies Allergy/AdvReac Type Severity Reaction Status Date / Time ALEXIS Inhibitors Allergy Severe Angioedema Verified 12/22/17 09:21 lisinopril Allergy Severe Angioedema Verified 12/19/17 13:10 tramadol Allergy Hives Verified 08/08/17 09:17 Home Medications Medication Instructions Recorded Confirmed Last Taken Type amLODIPine [Norvasc] 5 mg PO DAILY #30 tab 12/23/17 10/06/18 Unknown Rx Lisinopril/Hydrochlorothiazide 1 each PO DAILY 09/11/18 10/06/18 Unknown History [Zestoretic 20-25 mg] Omeprazole 40 mg PO DAILY 09/11/18 10/06/18 Unknown History Active Meds: Active Medications Fentanyl (Sublimaze) 50 mcg IV Q10MIN PRN PRN Reason: ANALGESIA Hydrophilic Ointment (Vaseline Lip Therapy) 1 applic TP Q2HR PRN PRN Reason: Dry Lips Fentanyl Citrate (Fentanyl Drip Premix) 2,000 mcg in 100 mls @ 3.62 mls/hr IV TITR VIANCA; Protocol Multi-Ingred Cream/Lotion/Oil/Oint (Artificial Tears Ophth Oint) 1 applic OU Q4HR PRN PRN Reason: Dry Eye(s) Sodium Chloride (Nacl 0.9% 500 Ml) 5 ml IV DIRECT PRN PRN 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 Absent: rub, click - Extremities Extremities: pulses symmetrical, No edema Peripheral Pulses: within normal limits - Abdominal General gastrointestinal: Present: soft, non-tender, non-distended, normal bowel sounds Female genitourinary: Present: normal - Integumentary Integumentary: Present: clear, warm, dry - Musculoskeletal Musculoskeletal: generalized weakness - Psychiatric Psychiatric: no appropriate mood/affect, no intact judgment & insight, no memory intact - Neurologic Neurologic: CNII-XII intact, moves all extremities, no gait normal Results - Labs CBC & Chem 7: 10/06/18 11:00 10/06/18 11:00 Labs: Abnormal lab results 10/06/18 10/06/18 10/06/18 Range/Units 11:00 11:00 11:00 WBC 14.2 H (4.5-11.0) K/mm3 Hct 45.2 H (30.3-42.9) % RDW 16.0 H (13.2-15.2) % [place] % (Auto) 8.6 H (0.0-7.3) % [place] # 1.2 H (0.0-0.8) K/mm3 Seg Neutrophils # 8.8 H (1.8-7.7) K/mm3 PT 12.1 L (12.2-14.9) Sec. POC ABG pH (7.35-7.45) POC ABG pCO2 (35-45) POC ABG pO2 (80-105) Potassium 3.4 L (3.6-5.0) mmol/L BUN 26 H (7-17) mg/dL Creatinine 1.5 H (0.7-1.2) mg/dL Glucose 138 H (65-100) mg/dL Calcium 10.4 H (8.4-10.2) mg/dL 10/06/18 Range/Units 11:39 WBC (4.5-11.0) K/mm3 Hct (30.3-42.9) % RDW (13.2-15.2) % [place] % (Auto) (0.0-7.3) % [place] # (0.0-0.8) K/mm3 Seg Neutrophils # (1.8-7.7) K/mm3 PT (12.2-14.9) Sec. POC ABG pH 7.262 L (7.35-7.45) POC ABG pCO2 61.8 H (35-45) POC ABG pO2 148 H (80-105) Potassium (3.6-5.0) mmol/L BUN (7-17) mg/dL Creatinine (0.7-1.2) mg/dL Glucose (65-100) mg/dL Calcium (8.4-10.2) mg/dL Assessment and Plan - Patient Problems (1) Respiratory failure Current Visit: Yes Status: Acute Qualifiers: Chronicity: acute Respiratory failure complication: hypoxia Qualified Code(s): J96.01 - Acute respiratory failure with hypoxia Plan to address problem: Admit to ICU, nebulizer therapy, wean vent as tolerated, pulmonary consulted, ABG, pulse oximetry, chest x ray, d dimer. The high probability of a clinically significant, sudden or life threatening deterioration of the [pulmonary,renal, neuro] system(s) required my full and direct attention, intervention and personal management. The aggregate critical care time was [65] minutes. This time is in addition to time spent performing r eported procedures but includes the following: [x] Data Review and interpretation [x] Patient assessment and monitoring of vital signs [x] Documentation [x] Medication orders and management (2) Angioedema Current Visit: Yes Status: Acute Qualifiers: Plan to address problem: Iv steroid therapy, supportive care, monitor bp q shift, (3) Acute renal failure Current Visit: No Status: Acute Qualifiers: Acute renal failure type: unspecified Qualified Code(s): N17.9 - Acute kidney failure, unspecified Plan to address problem: IVF resuscitation therapy, monitor uop q shift, urine electrolytes, avoid nephrotoxic agents. (4) DVT prophylaxis Current Visit: No Status: Acute Plan to address problem: SCD to BLE while in bed, prophylactic heparin
[2018-10-06] MEDS ORDERED: PROVENTIL IH PRN (12:00)
[2018-10-06] MEDS ORDERED: SOLU-Medrol IV ONE (12:30)
[2018-10-06] MEDS ORDERED: NACL 0.9% 1000 ML 1,000 ML ONE ×2 (12:49→14:24)
[2018-10-06] MEDS ORDERED: SOLU-Medrol ONE ×2 (13:14→22:27)
[2018-10-06] MEDS ORDERED: VICKS SINEX NS ONE (13:27)
[2018-10-06] MEDS ORDERED: ZEMURON IV ONE ×2 (14:44→14:45)
[2018-10-06] MEDS ORDERED: NACL 0.9% 1000 ML 1,000 ML IV SCH (16:12)
--- NOTE | 2018-10-06 17:41 | XRay Report ---
PROCEDURE: XR CHEST 1V AP TECHNIQUE: Frontal chest radiograph. HISTORY: ETT placement COMPARISONS: 08/08/2017. FINDINGS: The endotracheal tube tip projects in the mid to upper thoracic trachea. The cardiomediastinal silhou ette is normal. No consolidation. Mild streaky opacities are seen in the lung bases. No pleural effusion. No pneumothorax. No acute osseous abnormality. IMPRESSION: 1. Endotracheal tube tip projecting in the mid to upper thoracic trachea. 2. Mild bibasilar atelectasis versus scarring. This document is electronically signed by Denisha Bautista., October 06 2018 05:39:20 PM ET
[2018-10-06] MEDS ORDERED: SUBLIMAZE ONE (18:32)
[2018-10-06 18:55] LABS: Creatinine,Urine 124.5 mg/dL (0.1-20.0)
[2018-10-06] MEDS ORDERED: fentaNYL DRIP Premix 2,000 MCG/100 ML BAG IV ONE (19:28)
[2018-10-06] MEDS: fentaNYL DRIP Premix 2,000 MCG/100 ML BAG IV SCH (19:38)
[2018-10-06] MEDS ORDERED: SOLU-Medrol IV SCH (22:00)
[2018-10-06] MEDS ORDERED: HEPARIN ONE (22:27)
[2018-10-06] MEDS: HEPARIN SUB-Q SCH (22:35)
[2018-10-06] MEDS: SODIUM CHLORIDE FLUSH SYRINGE 10 ML IV SCH (22:36)
[2018-10-07] MEDS: fentaNYL DRIP Premix 2,000 MCG/100 ML BAG IV SCH ×3 (01:17→16:23)
[2018-10-07] MEDS: DIPRIVAN 10 MG/ML 1,000 MG/100 ML BOTTLE IV SCH ×5 (02:51→22:05)
[2018-10-07 05:22] LABS: Basophils % (Auto) 0.3 % (0.0-1.8); Hematocrit 42.1 % (30.3-42.9); Hemoglobin 13.7 gm/dl (10.1-14.3); Lymphocytes # (Auto) 1.3 K/mm3 (1.2-5.4); Lymphocytes % (Auto) 15.5 % (13.4-35.0); Mean Corpuscular HGB Conc 33 % (30-34); Mean Corpuscular Volume 90 fl (79-97); Monocytes # (Auto) 0.3 K/mm3 (0.0-0.8); Monocytes % (Auto) 3.5 % (0.0-7.3); Red Blood Count 4.68 M/mm3 (3.65-5.03); Red Cell Distribution Width 15.9 % (13.2-15.2)
[2018-10-07 05:29] LABS: Platelet Count 223 K/mm3 (140-440)
[2018-10-07 05:52] LABS: Albumin 3.1 g/dL (3.9-5); Calcium 9.8 mg/dL (8.4-10.2)
--- NOTE | 2018-10-07 08:28 | XRay Report ---
AP ABDOMEN: HISTORY: Dobbhoff tube placement. The Dobbhoff tube terminates in the antrum of the stomach. There is moderate stool in the colon. No obstructive pattern. The lung bases are clear. IMPRESSION: The Dobbhoff tube terminates in the distal stomach. Mild fecal retention.
--- NOTE | 2018-10-07 09:03 | Consultation ---
History of Present Illness Consult date: 10/07/18 Requesting physician: NAOMI SERRATO History of present illness: ED PHYSICIAN NOTES This is a 67-year-old female. Her past medical history includes nicotine dependence, hypertension, migraine headaches, chronic lumbar pain, radiculopathy, vasomotor nephropathy. Patient brought to the hospital by emergency medical services for presumed ALEXIS inhibitor angioedema. The patient has a grossly swollen tongue, and is not able to provide history. History obtained from EMS. EMS indicates they were called for tongue swelling. They state patient is ambulatory in the field. Patient treated with Pepcid, Benadryl, Solu-Medrol, subcutaneous tissues epinephrine 1 in the field. EMS verbally indicates that some swelling has progressively increased since their initial encounter. Patient is drooling. Upon arrival to the emergency room, the patient has a grossly swollen and distorted tongue, is drooling, and does not respond to additional 2 doses of subcutaneous epinephrine. Decision is made to prophylactically intubate to protect airway. Nasal tracheal intubation is attempted by anesthesiology, please see their documentation. Patient transiently desaturated, received [id number] ventilation, and then was intubated with a kaleidoscope and a 6.0 endotracheal tube by anesthesiology. Patient is currently intubated, sedated, and no additional history is available at this time. Patient admitted to ICU. I have been consulted for critical care management. Patient was seen and examined in the ICU. Her daughter and cousin are available at the bedside. The family state she gets her care at an urgent care facility. She apparently had the swelling which gradually got worse over a few days. She was reluctant to seek medical help at the onset of the symptoms. Patient is currently orally intubated on fenatnyl at 4mcg and Propofol at 40 Size 6 ETT at 24cm at the lip AC 18/500/6/30% ABG 7.46/29/72/21/-3 BE Past History Past Surgical History: No surgical history, Other (reviewed) Social history: single, lives with family, smoking Family history: no significant family history (reviewed) Medications and Allergies Allergies Allergy/AdvReac Type Severity Reaction Status Date / Time ALEXIS Inhibitors Allergy Severe Angioedema Verified 12/22/17 09:21 lisinopril Allergy Severe Angioedema Verified 12/19/17 13:10 tramadol Allergy Hives Verified 08/08/17 09:17 Home Medications Medication Instructions Recorded Confirmed Last Taken Type amLODIPine [Norvasc] 5 mg PO DAILY #30 tab 12/23/17 10/06/18 Unknown Rx Omeprazole 40 mg PO DAILY 09/11/18 10/06/18 Unknown History Active Meds: Active Medications Albuterol (Proventil) 2.5 mg IH Q3HRT PRN PRN Reason: Shortness Of Breath Diphenhydramine HCl (Benadryl) 25 mg IV Q6H VIANCA Famotidine (Pepcid) 20 mg IV BID VIANCA Fentanyl (Sublimaze) 50 mcg IV Q10MIN PRN PRN Reason: ANALGESIA Last Admin: 10/06/18 18:40 Dose: 50 mcg Documented by: Heparin Sodium (Porcine) (Heparin) 5,000 unit SUB-Q Q12HR VIANCA Last Admin: 10/06/18 22:35 Dose: 5,000 unit Documented by: Hydrophilic Ointment (Vaseline Lip Therapy) 1 applic TP Q2HR PRN PRN Reason: Dry Lips Fentanyl Citrate (Fentanyl Drip Premix) 2,000 mcg in 100 mls @ 3.62 mls/hr IV TITR VIANCA; Protocol Last Admin: 10/07/18 07:52 Dose: 3 mcg/kg/hr, 10.86 mls/hr Documented by: Sodium Chloride (Nacl 0.9% 1000 Ml) 1,000 mls @ 0 mls/hr IV ONCE VIANCA Stop: 10/07/18 16:13 Propofol (Diprivan 10 Mg/Ml) 1,000 mg in 100 mls @ 2.172 mls/hr IV TITR VIANCA; Protocol Last Titration: 10/07/18 08:05 Dose: 35 mcg/kg/min, 15.204 mls/hr Documented by: Methylprednisolone Sodium Succinate (Solu-Medrol) 40 mg IV Q12HR VIANCA Last Admin: 10/06/18 22:36 Dose: 40 mg Documented by: Multi-Ingred Cream/Lotion/Oil/Oint (Artificial Tears Ophth Oint) 1 applic OU Q4HR PRN PRN Reason: Dry Eye(s) Sodium Chloride (Nacl 0.9% 500 Ml) 5 ml IV DIRECT PRN PRN Reason: ARTERIAL PRESCHOOL ASSISTANT DIRECTOR Sodium Chloride (Sodium Chloride Flush Syringe 10 Ml) 10 ml IV BID VIANCA Last Admin: 10/06/18 22:36 Dose: Not Given Documented by: Sodium Chloride (Sodium Chloride Flush Syringe 10 Ml) 10 ml IV PRN PRN PRN Reason: LINE FLUSH Review of Systems ROS unobtainable: due to endotracheal tube, due to mental status Physical Examination Vital signs: Vital Signs Pulse Ox 96 10/06/18 10:40 General appearance: no acute distress, other (sedated, ETT size #6 at 23 cm) Eyes: non-icteric ENT: other (Tongue swelling,) Neck: supple, no lymphadenopathy, no JVD Effort: normal Ascultation: Bilateral: diminished breath sounds Cardiovascular: regular rate and rhythm, other (S1,S2, no murmurs, gallops or rubs) Gastrointestinal: normoactive bowel sounds, soft, non-tender, non-distended, other (Nolen catheter in place) Integumentary: normal Extremities: no cyanosis, no edema, pink and warm, pulses normal, no ischemia or petechiae unable to assess other (sedated) Results - Laboratory Findings CBC and BMP: 10/07/18 04:17 10/07/18 04:17 ABG POC ABG pH 7.463 (7.35-7.45) H 10/07/18 04:01 POC ABG pO2 72 (80-105) L 10/07/18 04:01 POC ABG HCO3 21.1 (22-26 mml/L) 10/07/18 04:01 POC ABG Total CO2 22 (23-27mmol/L) 10/07/18 04:01 POC ABG O2 Sat 95 10/07/18 04:01 PT/INR, D-dimer PT 12.1 Sec. (12.2-14.9) L 10/06/18 11:00 INR 0.92 (0.87-1.13) 10/06/18 11:00 3324.92 ng/mlDDU (0-234) H 10/06/18 11:00 Abnormal lab findings: Abnormal Labs 10/06/18 10/06/18 10/06/18 11:00 11:00 11:00 WBC 14.2 H Hct 45.2 H RDW 16.0 H [place] % (Auto) 8.6 H [place] # 1.2 H Seg Neutrophils % Seg Neutrophils # 8.8 H PT 12.1 L D-Dimer POC ABG pH POC ABG pCO2 POC ABG pO2 Potassium 3.4 L BUN 26 H Creatinine 1.5 H Glucose 138 H Calcium 10.4 H ALT Albumin Urine Creatinine 10/06/18 10/06/18 10/06/18 11:00 11:39 20:48 WBC Hct RDW [place] % (Auto) [place] # Seg Neutrophils % Seg Neutrophils # PT D-Dimer 3324.92 H POC ABG pH 7.262 L 7.472 H POC ABG pCO2 61.8 H 31.2 L POC ABG pO2 148 H Potassium BUN Creatinine Glucose Calcium ALT Albumin Urine Creatinine 10/06/18 10/07/18 10/07/18 Unknown 04:01 04:17 WBC Hct RDW 15.9 H [place] % (Auto) [place] # Seg Neutrophils % 80.7 H Seg Neutrophils # PT D-Dimer POC ABG pH 7.463 H POC ABG pCO2 POC ABG pO2 72 L Potassium BUN Creatinine Glucose Calcium ALT Albumin Urine Creatinine 124.5 H 10/07/18 04:17 WBC Hct RDW [place] % (Auto) [place] # Seg Neutrophils % Seg Neutrophils # PT D-Dimer POC ABG pH POC ABG pCO2 POC ABG pO2 Potassium BUN 26 H Creatinine Glucose 105 H Calcium ALT 6 L Albumin 3.1 L Urine Creatinine - Diagnostic Findings Chest x-ray: image reviewed (ETT in position, no acute pulmonary infiltrates noted.) Assessment and Plan - ALEXIS inhibitor Angioedema -Acute hypoxemic respiratory failure on MVS -HTN -h/o Tobacco use disorder/Nicotine dependence -h/o Chronic migraines -Chronic radiculopathy -VAP bundle addressed -Add benadryl to therapy, continue steroids -Adjust minute ventilation for better gas exchange, decrease set rate to 12 -Lung protective strategies -Serial CXR and ABG -Critical care bundles addressed -Supplemental oxygen to keep O2 sats > 90% -Bronchodilators -Accuchecks with glycemic control. Target blood glucose <180mg/dL -Nutrition consult for tube feedings -Start tube feedings with aspiration precautions -Agitation management -Titrate sedation to RAAS 0 to -1 -Prevention of delirium, maintenance of sleep-wake cycle -Avoid nephrotoxic agents, adjust all antibiotics and medications for CrCL and GFR -Discontinue nolen catheter -VTE and Stress ulcer prophylaxis( use famotidine in view of angioedema) -Tobacco cessation counselling once she is able to be an active participant of the conversation -Nicotine withdrawal precautions SBT once her swelling improves. Decision on extubation should not be limited by the absence of a cuff leak. She has a size 6 ETT which will make it difficult to have a significant cuff leak. STOP lisinopril. Had extensive discussions with the family about lisinopril. She apparently had a similar episode last year, and though lisinopril was listed as an allergy she still got it. I explained the need to have a data systems manager, who can coordinate her care, rather than the use of an urgent care as her point of care. CONDITION: CRITICAL PROGNOSIS: GUARDED CODE STATUS: FULL CODE The high probability of a clinically significant, sudden or life threatening deterioration of the [pulmonary] system(s) required my full and direct attention, intervention and personal management. The aggregate critical care time was [65] minutes. This time is in addition to time spent performing reported procedures but includes the following: [x] Data Review and interpretation [x] Patient assessment and monitoring of vital signs [x] Documentation [x] Medication orders and management
[2018-10-07] MEDS: SODIUM CHLORIDE FLUSH SYRINGE 10 ML IV SCH ×2 (10:29→21:14)
[2018-10-07] MEDS: SOLU-Medrol IV SCH ×3 (10:37→21:13)
[2018-10-07] MEDS: BENADRYL IV SCH ×3 (10:38→21:13)
[2018-10-07] MEDS: PEPCID IV SCH ×2 (10:38→21:13)
[2018-10-07] MEDS: HEPARIN SUB-Q SCH ×2 (10:38→21:13)
[2018-10-07] MEDS: HumaLOG SUB-Q SCH ×2 (12:28→18:13)
[2018-10-07] MEDS ORDERED: SIMPLE SYRUP FEEDTUBE PRN ×2 (12:31)
[2018-10-07] MEDS ORDERED: PANCREAZE DR 10,500 UNIT FEEDTUBE PRN (12:31)
[2018-10-07] MEDS ORDERED: SODIUM BICARBONATE FEEDTUBE PRN (12:31)
[2018-10-07] MEDS: NORVASC PO SCH (14:20)
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
[2018-10-08] MEDS: fentaNYL DRIP Premix 2,000 MCG/100 ML BAG IV SCH ×3 (00:01→17:10)
[2018-10-08] MEDS: HumaLOG SUB-Q SCH ×4 (01:52→17:30)
[2018-10-08] MEDS: DIPRIVAN 10 MG/ML 1,000 MG/100 ML BOTTLE IV SCH ×4 (03:21→19:35)
[2018-10-08] MEDS: BENADRYL IV SCH ×4 (03:24→21:35)
--- NOTE | 2018-10-08 04:49 | XRay Report ---
PROCEDURE: XR CHEST 1V AP TECHNIQUE: Chest radiograph single view. HISTORY: follow up respiratory failure FINDINGS: Single frontal view of the chest was acquired. There is an endotracheal tube with its tip i n appropriate position. There is a nasogastric tube with its tip in stomach. The heart is mildly large although similar to the prior exam. There is no evidence of congestive hear t failure. There is no acute consolidative infiltrate. IMPRESSION: No acute consolidative infiltrate This document is electronically signed by Jayro Hernandez MD., October 08 2018 04:47:35 AM ET
[2018-10-08] MEDS: SOLU-Medrol IV SCH ×3 (06:32→21:35)
[2018-10-08] MEDS: PEPCID IV SCH ×2 (09:52→21:35)
[2018-10-08] MEDS: HEPARIN SUB-Q SCH ×2 (09:52→21:35)
[2018-10-08] MEDS: NORVASC PO SCH (09:52)
[2018-10-08] MEDS: SODIUM CHLORIDE FLUSH SYRINGE 10 ML IV SCH ×2 (10:12→21:36)
[2018-10-08 11:59] LABS: BUN/Creatinine Ratio 25; Blood Urea Nitrogen 27 mg/dL (7-17); Hemolysis Index 3
--- NOTE | 2018-10-08 13:43 | Progress Note ---
Assessment and Plan ALEXIS inhibitor Angioedema Acute hypoxemic respiratory failure on MVS HTN h/o Tobacco use disorder/Nicotine dependence h/o Chronic migraines Chronic radiculopathy - add seroquel re: agitation - resume SBT later today - VAP bundle addressed - continue benadryl and systemic steroids - continue antihistamine therapy with PEpcid - Adjust minute ventilation for better gas exchange, decrease set rate to 12 - Lung protective strategies - Serial CXR and ABG - Critical care bundles addressed - Supplemental oxygen to keep O2 sats > 90% - Bronchodilators - Accuchecks with glycemic control. Target blood glucose <180mg/dL - Nutrition consult for tube feedings - continue tube feedings with aspiration precautions - Agitation management - Titrate sedation to RAAS 0 to -1 - Prevention of delirium, maintenance of sleep-wake cycle - Avoid nephrotoxic agents, adjust all antibiotics and medications for CrCL and GFR - Discontinue nolen catheter - VTE and Stress ulcer prophylaxis( use famotidine in view of angioedema) - Tobacco cessation counselling once she is able to be an active participant of the conversation - Nicotine withdrawal precautions ... decent cuff leak appreciated and tongue swelling is better CONDITION: CRITICAL PROGNOSIS: GUARDED CODE STATUS: FULL CODE The high probability of a clinically significant, sudden or life threatening deterioration of the [pulmonary] system(s) required my full and direct attent ion, intervention and personal management. The aggregate critical care time was [35] minutes. This time is in addition to time spent performing reported procedures but includes the following: [x] Data Review and interpretation [x] Patient assessment and monitoring of vital signs [x] Documentation [x] Medication orders and management Subjective Date of service: 10/08/18 Principal diagnosis: Angioedema; Ac. hypoxemic resp failure; HTN; Tobacco use disorder Interval history: Patient is seen today for: ALEXIS inhibitor Angioedema; Acute hypoxemic respiratory failure on MVS; HTN; h/o Tobacco use disorder/Nicotine dependence; h/o Chronic migraines; Chronic radiculopathy Seen and examined at bedside; 24hour events reviewed; nursing and respiratory care staff consulted; no adverse overnight events reported to me; unable to tolerate PSV trial due to sever agitation; sedated at time of my exam; son in room; No emesis or overt aspiration; no seizures Objective Vital Signs - 12hr 10/08/18 10/08/18 10/08/18 02:00 02:30 03:00 Temperature Pulse Rate 55 L 61 61 Respiratory 12 12 12 Rate Blood Pressure 120/70 121/74 O2 Sat by Pulse 95 97 97 Oximetry 10/08/18 10/08/18 10/08/18 03:31 04:00 04:31 Temperature 99.0 F Pulse Rate 61 70 61 Respiratory 12 12 12 Rate Blood Pressure 121/74 121/74 114/65 O2 Sat by Pulse 98 97 96 Oximetry 10/08/18 10/08/18 10/08/18 05:00 05:31 05:33 Temperature Pulse Rate 55 L 65 63 Respiratory 12 12 Rate Blood Pressure 116/68 116/68 116/68 O2 Sat by Pulse 96 98 98 Oximetry 10/08/18 10/08/18 10/08/18 06:00 06:31 07:00 Temperature Pulse Rate 66 68 73 Respiratory 12 12 12 Rate Blood Pressure 116/68 127/78 129/79 O2 Sat by Pulse 99 98 98 Oximetry 10/08/18 10/08/18 10/08/18 07:31 08:00 08:16 Temperature 99.5 F Pulse Rate 80 81 Respiratory 12 13 13 Rate Blood Pressure 129/79 137/82 O2 Sat by Pulse 96 95 95 Oximetry 10/08/18 10/08/18 10/08/18 08:31 09:00 09:31 Temperature Pulse Rate 87 130 H 134 H Respiratory 12 14 21 Rate Blood Pressure 129/79 138/88 136/82 O2 Sat by Pulse 96 97 92 Oximetry 10/08/18 10/08/18 10/08/18 09:52 10:00 10:31 Temperature Pulse Rate 107 H 105 H 92 H Respiratory 14 11 L Rate Blood Pressure 136/82 119/63 119/63 O2 Sat by Pulse 93 95 Oximetry 10/08/18 10/08/18 10/08/18 11:00 11:31 11:52 Temperature 99.2 F Pulse Rate 86 85 Respiratory 13 13 Rate Blood Pressure 125/75 125/75 O2 Sat by Pulse 92 95 Oximetry 10/08/18 10/08/18 10/08/18 12:00 12:05 12:24 Temperature Pulse Rate 81 77 Respiratory 12 13 Rate Blood Pressure 125/75 128/80 O2 Sat by Pulse 95 95 95 Oximetry Constitutional: no acute distress, other (sedated, ETT size #6 at 23 cm) Eyes: non-icteric ENT: other (Tongue swelling,) Neck: supple, no lymphadenopathy, no JVD, other (No thyromegaly) Effort: normal Ascultation: Bilateral: diminished breath sounds, rhonchi Percussion: Bilateral: not dull Cardiovascular: regular rate and rhythm, other (S1,S2, no murmurs, gallops or rubs) Gastrointestinal: normoactive bowel sounds, soft, non-tender, non-distended, other (Nolen catheter in place) Integumentary: normal Extremities: no cyanosis, no edema, pink and warm, pulses normal, no ischemia or petechiae Neurologic: non-focal exam (grossly), pupils equal and round, CN II-XII normal, other (sedated) Psychiatric: other (sedated) CBC and BMP: 10/07/18 04:17 10/09/18 04:09 ABG, PT/INR, D-dimer: ABG POC ABG pH 7.330 (7.35-7.45) L 10/08/18 05:40 POC ABG pCO2 46.0 (35-45) H 10/08/18 05:40 POC ABG pO2 71 (80-105) L 10/08/18 05:40 POC ABG HCO3 24.3 (22-26 mml/L) 10/08/18 05:40 POC ABG Total CO2 26 (23-27mmol/L) 10/08/18 05:40 POC ABG O2 Sat 93 10/08/18 05:40 PT/INR, D-dimer PT 12.1 Sec. (12.2-14.9) L 10/06/18 11:00 INR 0.92 (0.87-1.13) 10/06/18 11:00 3324.92 ng/mlDDU (0-234) H 10/06/18 11:00 Abnormal lab findings: Abnormal Labs 10/06/18 10/06/18 10/06/18 11:00 11:00 11:00 WBC 14.2 H Hct 45.2 H RDW 16.0 H [place] % (Auto) 8.6 H [place] # 1.2 H Seg Neutrophils % Seg Neutrophils # 8.8 H PT 12.1 L D-Dimer POC ABG pH POC ABG pCO2 POC ABG pO2 Potassium 3.4 L BUN 26 H Creatinine 1.5 H Glucose 138 H POC Glucose Calcium 10.4 H ALT Albumin Urine Creatinine 10/06/18 10/06/18 10/06/18 11:00 11:39 20:48 WBC Hct RDW [place] % (Auto) [place] # Seg Neutrophils % Seg Neutrophils # PT D-Dimer 3324.92 H POC ABG pH 7.262 L 7.472 H POC ABG pCO2 61.8 H 31.2 L POC ABG pO2 148 H Potassium BUN Creatinine Glucose POC Glucose Calcium ALT Albumin Urine Creatinine 10/06/18 10/07/18 10/07/18 Unknown 04:01 04:17 WBC Hct RDW 15.9 H [place] % (Auto) [place] # Seg Neutrophils % 80.7 H Seg Neutrophils # PT D-Dimer POC ABG pH 7.463 H POC ABG pCO2 POC ABG pO2 72 L Potassium BUN Creatinine Glucose POC Glucose Calcium ALT Albumin Urine Creatinine 124.5 H 10/07/18 10/07/18 10/08/18 04:17 23:49 05:25 WBC Hct RDW [place] % (Auto) [place] # Seg Neutrophils % Seg Neutrophils # PT D-Dimer POC ABG pH POC ABG pCO2 POC ABG pO2 Potassium BUN 26 H Creatinine Glucose 105 H POC Glucose 106 H 144 H Calcium ALT 6 L Albumin 3.1 L Urine Creatinine 10/08/18 10/08/18 10/08/18 05:40 11:17 11:36 WBC Hct RDW [place] % (Auto) [place] # Seg Neutrophils % Seg Neutrophils # PT D-Dimer POC ABG pH 7.330 L POC ABG pCO2 46.0 H POC ABG pO2 71 L Potassium 3.5 L BUN 27 H Creatinine Glucose 132 H POC Glucose 129 H Calcium ALT Albumin Urine Creatinine Chest x-ray: image reviewed (+ cardiomegaly; clear lung avalos; ETT in good position) Allied health notes reviewed: nursing
[2018-10-08] MEDS: DUONEB *Not for PRN Use IH SCH (16:20)
--- NOTE | 2018-10-08 17:28 | XRay Report ---
EXAM: XR CHEST 1V AP HISTORY: follow up respiratory failure TECHNIQUE: AP chest x-ray dated 10/07/2018 at 2:24 AM. COMPARISON: CXR dated 10/06/2018. FINDINGS: ET tube in situ with distal tip approximately 7.9 cm above the edil (adequate position). The heart size and mediastinum are within normal limits. There is lung parenchymal hyperinflation and hyperluce ncy in keeping with COPD/emphysema. There is mild streaky opacity again seen in the lung bases in elias ping with mild bibasilar atelectasis. There is no acute parenchymal infiltrate, pleural effusion, or pneumothorax seen. The visualized bony structures are within normal limits. IMPRESSION: 1. No evidence for acute cardiopulmonary disease seen. 2. Possible COPD/emphysema. 3. Mild streaky opacity again seen in the lung bases in keeping with mild bibasilar atelectasis. This document is electronically signed by Renetta Nance MD., October 08 2018 05:26:37 PM ET
--- NOTE | 2018-10-08 17:31 | Progress Note ---
Assessment and Plan /Acute hypoxic Respiratory failure due to angioedema cont nebulizer therapy, wean vent as tolerated, pulmonary consulted, iv steroid / Angioedema Stopped ACEI, much resolved Iv steroid therapy, supportive care, monitor bp q shift, / Acute renal failure due to vasomotor nephropathy IVF resuscitation therapy, monitor uop q shift, urine electrolytes, avoid nephrotoxic agents. / HTN, start on antihypertensives /Tobacco abuse, h/o - mitochondrial disorders counselor when medically stable /DVT prophylaxis SCD to BLE while in bed, prophylactic heparin The high probability of a clinically significant, sudden or life threatening deterioration of the [pulmonary,renal, neuro] system(s) required my full and direct attention, intervention and personal management. The aggregate critical care time was [35] minutes. This time is in addition to time spent performing reported procedures but includes the following: [x] Data Review and interpretation [x] Patient assessment and monitoring of vital signs [x] Documentation [x] Medication orders and management Brief history: This is a 67-year-old female. Her past medical history includes nicotine dependence, hypertension, migraine headaches, chronic lumbar pain, brought to the hospital by emergency medical services for presumed ALEXIS inhibitor angioedema. per EMS they were called for tongue swelling and Patient was treated with Pepcid, Benadryl, Solu-Medrol, subcutaneous tissues epinephrine 1 in the field. Upon arrival to the emergency room, the patient has a grossly swollen and distorted tongue, + drooling, and did not respond to additional 2 doses of subcutaneous epinephrine. Decision is made to prophylactically intubate to protect airway. Patient was intubated and admitted to ICU Hospitalists physical: GENERAL: well-developed and well-nourished -[place] female lying on bed appeared to be in no discomfort. HEENT: Normocephalic. Atraumatic. No conjunctival congestion or icterus. Patient has moist mucous membranes, no tongue swelling. Dobbhoff tube place through her nostril NECK: Supple. Trachea midline. Patient is mechanically ventilated with ET tube CHEST/LUNGS: Clear to auscultated bilaterally, breathing nonlabored. No wheezes crackles or rhonchi. HEART/CARDIOVASCULAR: Regular in rate and rhythm. S1 and S2 positive. ABDOMEN: Abdomen is soft, nontender. Patient has normal bowel sounds. SKIN: There is no rash. Warm and dry. NEURO: Patient currently sedated and unable to follow any command MUSCULOSKELETAL: No joint effusion or tenderness. EXTRIMITY: No edema, no cyanosis or clubbing. PSYCH: Sedated. Subjective Date of service: 10/08/18 Principal diagnosis: Angioedema; Ac. hypoxemic resp failure; HTN; Tobacco use disorder Interval history: Patient seen and examined. Medical records and medication list reviewed. No acute event overnight noted by the RN. Patient remains intubated, tolerating tube feeding, Got very agitated during weaning trial Discussed plan of care at bedside with patient's RN, no family at bedside. Objective - Constitutional Vitals: Vital Signs - 12hr 10/08/18 10/08/18 10/08/18 05:31 05:33 06:00 Temperature Pulse Rate 65 63 66 Pulse Rate [ Anterior Bilateral] Respiratory 12 12 Rate Respiratory Rate [Anterior Bilateral] Blood Pressure 116/68 116/68 116/68 O2 Sat by Pulse 98 98 99 Oximetry 10/08/18 10/08/18 10/08/18 06:31 07:00 07:31 Temperature Pulse Rate 68 73 80 Pulse Rate [ Anterior Bilateral] Respiratory 12 12 12 Rate Respiratory Rate [Anterior Bilateral] Blood Pressure 127/78 129/79 129/79 O2 Sat by Pulse 98 98 96 Oximetry 10/08/18 10/08/18 10/08/18 08:00 08:16 08:31 Temperature 99.5 F Pulse Rate 81 87 Pulse Rate [ Anterior Bilateral] Respiratory 13 13 12 Rate Respiratory Rate [Anterior Bilateral] Blood Pressure 137/82 129/79 O2 Sat by Pulse 95 95 96 Oximetry 10/08/18 10/08/18 10/08/18 09:00 09:31 09:52 Temperature Pulse Rate 130 H 134 H 107 H Pulse Rate [ Anterior Bilateral] Respiratory 14 21 Rate Respiratory Rate [Anterior Bilateral] Blood Pressure 138/88 136/82 136/82 O2 Sat by Pulse 97 92 Oximetry 10/08/18 10/08/18 10/08/18 10:00 10:31 11:00 Temperature Pulse Rate 105 H 92 H 86 Pulse Rate [ Anterior Bilateral] Respiratory 14 11 L 13 Rate Respiratory Rate [Anterior Bilateral] Blood Pressure 119/63 119/63 125/75 O2 Sat by Pulse 93 95 92 Oximetry 10/08/18 10/08/18 10/08/18 11:31 11:52 12:00 Temperature 99.2 F Pulse Rate 85 81 Pulse Rate [ Anterior Bilateral] Respiratory 13 12 Rate Respiratory Rate [Anterior Bilateral] Blood Pressure 125/75 125/75 O2 Sat by Pulse 95 95 Oximetry 10/08/18 10/08/18 10/08/18 12:05 12:24 12:31 Temperature Pulse Rate 77 76 Pulse Rate [ Anterior Bilateral] Respiratory 13 12 Rate Respiratory Rate [Anterior Bilateral] Blood Pressure 128/80 128/80 O2 Sat by Pulse 95 95 95 Oximetry 10/08/18 10/08/18 10/08/18 13:00 13:31 14:00 Temperature Pulse Rate 77 78 78 Pulse Rate [ Anterior Bilateral] Respiratory 12 12 12 Rate Respiratory Rate [Anterior Bilateral] Blood Pressure 132/82 128/80 121/77 O2 Sat by Pulse 97 Oximetry 10/08/18 10/08/18 10/08/18 14:31 15:00 15:31 Temperature Pulse Rate 72 72 76 Pulse Rate [ Anterior Bilateral] Respiratory 12 12 13 Rate Respiratory Rate [Anterior Bilateral] Blood Pressure 121/77 116/76 116/76 O2 Sat by Pulse 97 95 Oximetry 10/08/18 10/08/18 10/08/18 16:00 16:20 16:42 Temperature Pulse Rate 71 73 99 H Pulse Rate [ 110 H Anterior Bilateral] Respiratory 12 Rate Respiratory 10 L Rate [Anterior Bilateral] Blood Pressure 119/76 119/76 119/76 O2 Sat by Pulse 97 97 99 Oximetry 10/08/18 17:05 Temperature Pulse Rate 117 H Pulse Rate [ Anterior Bilateral] Respiratory Rate Respiratory Rate [Anterior Bilateral] Blood Pressure 185/106 O2 Sat by Pulse 97 Oximetry - Labs CBC & Chem 7: 10/07/18 04:17 10/09/18 04:09 Labs: Abnormal lab results 10/07/18 10/08/18 10/08/18 Range/Units 23:49 05:25 05:40 POC ABG pH 7.330 L (7.35-7.45) POC ABG pCO2 46.0 H (35-45) POC ABG pO2 71 L (80-105) Potassium (3.6-5.0) mmol/L BUN (7-17) mg/dL Glucose (65-100) mg/dL POC Glucose 106 H 144 H (70-105) 10/08/18 10/08/18 10/08/18 Range/Units 11:17 11:36 17:25 POC ABG pH (7.35-7.45) POC ABG pCO2 (35-45) POC ABG pO2 (80-105) Potassium 3.5 L (3.6-5.0) mmol/L BUN 27 H (7-17) mg/dL Glucose 132 H (65-100) mg/dL POC Glucose 129 H 149 H (70-105)
[2018-10-09] MEDS: DIPRIVAN 10 MG/ML 1,000 MG/100 ML BOTTLE IV SCH ×2 (00:34→05:45)
[2018-10-09] MEDS: HumaLOG SUB-Q SCH ×4 (00:34→18:57)
[2018-10-09] MEDS: DUONEB *Not for PRN Use IH SCH ×4 (01:01→23:28)
[2018-10-09] MEDS: BENADRYL IV SCH ×2 (03:21→21:56)
[2018-10-09] MEDS: fentaNYL DRIP Premix 2,000 MCG/100 ML BAG IV SCH (03:21)
--- NOTE | 2018-10-09 05:43 | XRay Report ---
PROCEDURE: XR CHEST 1V AP TECHNIQUE: Chest radiograph single view. HISTORY: follow up respiratory failure COMPARISONS: None . FINDINGS: Single frontal view of the chest was acquired and compared to the prior examination of October 08. There is an endotracheal tube which lies in appropriate position. The heart is mildly enlarged, unchanged. There is no consolidative pulmonary infiltrate. There is a nasogastric tube which extends in the stom ach. IMPRESSION: Stable mild cardiomegaly. Otherwise, no active disease in the chest This document is electronically signed by Jayro Hernandez MD., October 09 2018 05:41:22 AM ET
[2018-10-09] MEDS: SOLU-Medrol IV SCH ×2 (06:32→21:55)
[2018-10-09 09:03] LABS: BUN/Creatinine Ratio 23; Blood Urea Nitrogen 23 mg/dL (7-17); Calcium 9.2 mg/dL (8.4-10.2); Hemolysis Index 10
[2018-10-09] MEDS: NORVASC PO SCH (09:40)
[2018-10-09] MEDS: HEPARIN SUB-Q SCH ×2 (09:42→21:55)
[2018-10-09] MEDS: PEPCID IV SCH (09:44)
[2018-10-09] MEDS: SODIUM CHLORIDE FLUSH SYRINGE 10 ML IV PRN (09:44)
[2018-10-09] MEDS: APRESOLINE IV PRN ×2 (10:10→16:25)
[2018-10-09] MEDS ORDERED: ZOFRAN ONE (12:51)
[2018-10-09] MEDS ORDERED: ZOFRAN IM STA (13:11)
[2018-10-09] MEDS: PERCOCET 5/325 PO PRN ×2 (14:46→21:03)
--- NOTE | 2018-10-09 15:59 | Progress Note ---
Assessment and Plan ALEXIS inhibitor Angioedema Acute hypoxemic respiratory failure on MVS HTN h/o Tobacco use disorder/Nicotine dependence h/o Chronic migraines Chronic radiculopathy - continue seroquel re: agitation (taper post extubation) - extubate if passes SBT with a good ABG (good cuff leak demonstrated) - VAP bundle addressed - continue benadryl and systemic steroids - continue antihistamine therapy with PEpcid - Adjust minute ventilation for better gas exchange, decrease set rate to 12 - Lung protective strategies - Serial CXR and ABG - Critical care bundles addressed - Supplemental oxygen to keep O2 sats > 90% - Bronchodilators - Accuchecks with glycemic control. Target blood glucose <180mg/dL - Nutrition consult for tube feedings - continue tube feedings with aspiration precautions - Agitation management - Titrate sedation to RAAS 0 to -1 - Prevention of delirium, maintenance of sleep-wake cycle - Avoid nephrotoxic agents, adjust all antibiotics and medications for CrCL and GFR - Discontinue nolen catheter - VTE and Stress ulcer prophylaxis( use famotidine in view of angioedema) - Tobacco cessation counselling once she is able to be an active participant of the conversation - Nicotine withdrawal precautions ... decent cuff leak appreciated and tongue swelling is better CONDITION: CRITICAL PROGNOSIS: GUARDED CODE STATUS: FULL CODE The high probability of a clinically significant, sudden or life threatening deterioration of the [pulmonary] system(s) required my full and direct attent ion, intervention and personal management. The aggregate critical care time was [31] minutes. This time is in addition to time spent performing reported procedures but includes the following: [x] Data Review and interpretation [x] Patient assessment and monitoring of vital signs [x] Documentation [x] Medication orders and management Subjective Date of service: 10/09/18 Principal diagnosis: Angioedema; Ac. hypoxemic resp failure; HTN; Tobacco use disorder Interval history: Patient is seen today for: ALEXIS inhibitor Angioedema; Acute hypoxemic respiratory failure on MVS; HTN; h/o Tobacco use disorder/Nicotine dependence; h/o Chronic migraines; Chronic radiculopathy Seen and examined at bedside; 24hour events reviewed; nursing and respiratory care staff consulted; no adverse overnight events reported to me; remains on MVS; tolerating SBT well so far; No N/V/F/C Objective Vital Signs - 12hr 10/09/18 10/09/18 10/09/18 04:00 04:31 05:01 Temperature Pulse Rate 63 67 62 Respiratory 12 12 12 Rate Blood Pressure 106/66 106/66 106/66 O2 Sat by Pulse 98 97 97 Oximetry 10/09/18 10/09/18 10/09/18 05:31 06:00 06:31 Temperature Pulse Rate 63 61 77 Respiratory 12 12 12 Rate Blood Pressure 123/72 120/70 120/70 O2 Sat by Pulse 95 97 100 Oximetry 10/09/18 10/09/18 10/09/18 07:00 07:31 08:00 Temperature 98.9 F Pulse Rate 62 61 67 Respiratory 12 12 12 Rate Blood Pressure 119/70 119/70 123/70 O2 Sat by Pulse 97 98 96 Oximetry 10/09/18 10/09/18 10/09/18 08:31 08:55 08:59 Temperature Pulse Rate 64 96 H 94 H Respiratory 12 12 Rate Blood Pressure 123/70 123/70 169/95 O2 Sat by Pulse 98 100 99 Oximetry 10/09/18 10/09/18 10/09/18 09:00 09:31 09:40 Temperature Pulse Rate 95 H 127 H 121 H Respiratory 11 L 12 Rate Blood Pressure 166/97 169/95 171/106 O2 Sat by Pulse 99 100 Oximetry 10/09/18 10/09/18 10/09/18 10:00 10:10 10:30 Temperature Pulse Rate 116 H 123 H 125 H Respiratory 12 14 Rate Blood Pressure 186/109 186/109 169/103 O2 Sat by Pulse 97 95 Oximetry 10/09/18 10/09/18 10/09/18 11:00 11:04 11:31 Temperature Pulse Rate 125 H 123 H 114 H Respiratory 15 14 13 Rate Blood Pressure 183/107 185/107 172/103 O2 Sat by Pulse 96 98 97 Oximetry 10/09/18 10/09/18 10/09/18 12:00 12:31 13:00 Temperature 98.5 F Pulse Rate 106 H 128 H 129 H Respiratory 12 20 12 Rate Blood Pressure 168/105 168/105 175/105 O2 Sat by Pulse 97 94 Oximetry 10/09/18 10/09/18 13:31 14:20 Temperature Pulse Rate 130 H Respiratory 14 Rate Blood Pressure 178/107 O2 Sat by Pulse 97 98 Oximetry Constitutional: no acute distress, other (sedated, ETT size #6 at 23 cm) Eyes: non-icteric ENT: other (Tongue swelling,) Neck: supple, no lymphadenopathy, no JVD, other (No thyromegaly) Effort: normal Ascultation: Bilateral: diminished breath sounds, rhonchi Percussion: Bilateral: not dull Cardiovascular: regular rate and rhythm, other (S1,S2, no murmurs, gallops or rubs) Gastrointestinal: normoactive bowel sounds, soft, non-tender, non-distended, other (Nolen catheter in place) Integumentary: normal Extremities: no cyanosis, no edema, pink and warm, pulses normal, no ischemia or petechiae Neurologic: non-focal exam (grossly), pupils equal and round, CN II-XII normal, other (sedated) Psychiatric: other (sedated) CBC and BMP: 10/11/18 06:45 10/11/18 06:45 ABG, PT/INR, D-dimer: ABG POC ABG pH 7.429 (7.35-7.45) 10/09/18 11:09 POC ABG pCO2 41.1 (35-45) 10/09/18 11:09 POC ABG pO2 77 (80-105) L 10/09/18 11:09 POC ABG HCO3 27.2 (22-26 mml/L) 10/09/18 11:09 POC ABG Total CO2 28 (23-27mmol/L) 10/09/18 11:09 POC ABG O2 Sat 96 10/09/18 11:09 PT/INR, D-dimer PT 12.1 Sec. (12.2-14.9) L 10/06/18 11:00 INR 0.92 (0.87-1.13) 10/06/18 11:00 3324.92 ng/mlDDU (0-234) H 10/06/18 11:00 Abnormal lab findings: Abnormal Labs 10/06/18 10/06/18 10/06/18 11:00 11:00 11:00 WBC 14.2 H Hct 45.2 H RDW 16.0 H [place] % (Auto) 8.6 H [place] # 1.2 H Seg Neutrophils % Seg Neutrophils # 8.8 H PT 12.1 L D-Dimer POC ABG pH POC ABG pCO2 POC ABG pO2 Sodium Potassium 3.4 L BUN 26 H Creatinine 1.5 H Glucose 138 H POC Glucose Calcium 10.4 H ALT Albumin Urine Creatinine 10/06/18 10/06/18 10/06/18 11:00 11:39 20:48 WBC Hct RDW [place] % (Auto) [place] # Seg Neutrophils % Seg Neutrophils # PT D-Dimer 3324.92 H POC ABG pH 7.262 L 7.472 H POC ABG pCO2 61.8 H 31.2 L POC ABG pO2 148 H Sodium Potassium BUN Creatinine Glucose POC Glucose Calcium ALT Albumin Urine Creatinine 10/06/18 10/07/18 10/07/18 Unknown 04:01 04:17 WBC Hct RDW 15.9 H [place] % (Auto) [place] # Seg Neutrophils % 80.7 H Seg Neutrophils # PT D-Dimer POC ABG pH 7.463 H POC ABG pCO2 POC ABG pO2 72 L Sodium Potassium BUN Creatinine Glucose POC Glucose Calcium ALT Albumin Urine Creatinine 124.5 H 10/07/18 10/07/18 10/08/18 04:17 23:49 05:25 WBC Hct RDW [place] % (Auto) [place] # Seg Neutrophils % Seg Neutrophils # PT D-Dimer POC ABG pH POC ABG pCO2 POC ABG pO2 Sodium Potassium BUN 26 H Creatinine Glucose 105 H POC Glucose 106 H 144 H Calcium ALT 6 L Albumin 3.1 L Urine Creatinine 10/08/18 10/08/18 10/08/18 05:40 11:17 11:36 WBC Hct RDW [place] % (Auto) [place] # Seg Neutrophils % Seg Neutrophils # PT D-Dimer POC ABG pH 7.330 L POC ABG pCO2 46.0 H POC ABG pO2 71 L Sodium Potassium 3.5 L BUN 27 H Creatinine Glucose 132 H POC Glucose 129 H Calcium ALT Albumin Urine Creatinine 10/08/18 10/08/18 10/09/18 17:25 23:27 04:09 WBC Hct RDW [place] % (Auto) [place] # Seg Neutrophils % Seg Neutrophils # PT D-Dimer POC ABG pH POC ABG pCO2 POC ABG pO2 Sodium 136 L Potassium BUN 23 H Creatinine Glucose 132 H POC Glucose 149 H 116 H Calcium ALT Albumin Urine Creatinine 10/09/18 10/09/18 10/09/18 04:38 05:34 11:09 WBC Hct RDW [place] % (Auto) [place] # Seg Neutrophils % Seg Neutrophils # PT D-Dimer POC ABG pH POC ABG pCO2 49.2 H POC ABG pO2 77 L 77 L Sodium Potassium BUN Creatinine Glucose POC Glucose 134 H Calcium ALT Albumin Urine Creatinine 10/09/18 11:38 WBC Hct RDW [place] % (Auto) [place] # Seg Neutrophils % Seg Neutrophils # PT D-Dimer POC ABG pH POC ABG pCO2 POC ABG pO2 Sodium Potassium BUN Creatinine Glucose POC Glucose 106 H Calcium ALT Albumin Urine Creatinine Chest x-ray: image reviewed (ETT in good position) Allied health notes reviewed: nursing
[2018-10-09] MEDS: SODIUM CHLORIDE FLUSH SYRINGE 10 ML IV SCH (21:57)
[2018-10-10] MEDS: HumaLOG SUB-Q SCH ×4 (04:53→18:17)
[2018-10-10] MEDS: PERCOCET 5/325 PO PRN ×3 (04:54→23:08)
--- NOTE | 2018-10-10 07:42 | Progress Note ---
Assessment and Plan - ALEXIS inhibitor Angioedema -Acute hypoxemic respiratory failure s/p MVS -HTN -h/o Tobacco use disorder/Nicotine dependence -h/o Chronic migraines -Chronic radiculopathy -PRN CXR and ABG -Supplemental oxygen to keep O2 sats > 90% -Bronchodilators -Accuchecks with glycemic control. Target blood glucose <180mg/dL -Avoid nephrotoxic agents, adjust all antibiotics and medications for CrCL and GFR -VTE and Stress ulcer prophylaxis -Tobacco cessation counselling -Nicotine withdrawal precautions -PT/OT/Ambulation--increase activity -Promotility agents, anti-emetics, bowel regimen Stable to transfer out of ICU Subjective Date of service: 10/10/18 Principal diagnosis: Angioedema; Ac. hypoxemic resp failure; HTN; Tobacco use disorder Interval history: Patient is seen today for: ALEXIS inhibitor Angioedema; Acute hypoxemic respiratory failure on MVS; HTN; h/o Tobacco use disorder/Nicotine dependence; h/o Chronic migraines; Chronic radiculopathy Seen and examined at bedside; 24hour events reviewed; nursing and respiratory care staff consulted; no adverse overnight events reported to me;extubated, doing well from a pulmonary standpoint; vomited tube feeds, denies any fevers, no chills, no chest pain. Has nausea Objective Vital Signs - 12hr 10/09/18 10/09/18 10/09/18 19:49 20:00 20:05 Temperature 98.7 F Pulse Rate 124 H Pulse Rate [ Anterior Bilateral] Respiratory 17 18 Rate Respiratory Rate [Anterior Bilateral] Blood Pressure 160/97 O2 Sat by Pulse 94 93 Oximetry 10/09/18 10/09/18 10/09/18 20:07 20:11 20:30 Temperature Pulse Rate 124 H 115 H Pulse Rate [ Anterior Bilateral] Respiratory 14 Rate Respiratory Rate [Anterior Bilateral] Blood Pressure 160/97 O2 Sat by Pulse 97 96 Oximetry 10/09/18 10/09/18 10/09/18 21:00 21:30 22:00 Temperature Pulse Rate 108 H 114 H 110 H Pulse Rate [ Anterior Bilateral] Respiratory 14 13 15 Rate Respiratory Rate [Anterior Bilateral] Blood Pressure 173/98 173/98 178/95 O2 Sat by Pulse 93 93 94 Oximetry 10/09/18 10/09/18 10/09/18 22:17 22:30 23:00 Temperature Pulse Rate 114 H 96 H 108 H Pulse Rate [ Anterior Bilateral] Respiratory 26 H 12 19 Rate Respiratory Rate [Anterior Bilateral] Blood Pressure 178/95 178/95 175/105 O2 Sat by Pulse 95 98 94 Oximetry 10/09/18 10/09/18 10/10/18 23:28 23:35 00:00 Temperature 98.5 F Pulse Rate 89 Pulse Rate [ 104 H 113 H Anterior Bilateral] Respiratory 18 Rate Respiratory 18 18 Rate [Anterior Bilateral] Blood Pressure 138/80 O2 Sat by Pulse 93 Oximetry 10/10/18 10/10/18 10/10/18 01:00 02:00 03:00 Temperature Pulse Rate 107 H 131 H 101 H Pulse Rate [ Anterior Bilateral] Respiratory 11 L 20 16 Rate Respiratory Rate [Anterior Bilateral] Blood Pressure 157/93 157/93 157/89 O2 Sat by Pulse 97 91 Oximetry 10/10/18 10/10/18 10/10/18 04:00 04:03 05:00 Temperature Pulse Rate 97 H 100 H Pulse Rate [ Anterior Bilateral] Respiratory 21 16 11 L Rate Respiratory Rate [Anterior Bilateral] Blood Pressure 156/90 158/95 O2 Sat by Pulse 93 Oximetry 10/10/18 10/10/18 10/10/18 05:50 05:53 06:00 Temperature 98.9 F Pulse Rate 96 H Pulse Rate [ Anterior Bilateral] Respiratory 20 15 Rate Respiratory Rate [Anterior Bilateral] Blood Pressure 165/99 O2 Sat by Pulse Oximetry Constitutional: no acute distress Eyes: non-icteric ENT: oropharynx moist Neck: supple, no lymphadenopathy, no JVD, other (No thyromegaly) Effort: normal Ascultation: Bilateral: diminished breath sounds, rhonchi Percussion: Bilateral: not dull Cardiovascular: regular rate and rhythm, other (S1,S2, no murmurs, gallops or rubs) Gastrointestinal: normoactive bowel sounds, soft, non-tender, non-distended Integumentary: normal Extremities: no cyanosis, no edema, pink and warm, pulses normal, no ischemia or petechiae Neurologic: normal mental status, non-focal exam (grossly), pupils equal and round, CN II-XII normal, other Psychiatric: mood appropriate, affect normal CBC and BMP: 10/07/18 04:17 10/09/18 04:09 ABG, PT/INR, D-dimer: ABG POC ABG pH 7.429 (7.35-7.45) 10/09/18 11:09 POC ABG pCO2 41.1 (35-45) 10/09/18 11:09 POC ABG pO2 77 (80-105) L 10/09/18 11:09 POC ABG HCO3 27.2 (22-26 mml/L) 10/09/18 11:09 POC ABG Total CO2 28 (23-27mmol/L) 10/09/18 11:09 POC ABG O2 Sat 96 10/09/18 11:09 PT/INR, D-dimer PT 12.1 Sec. (12.2-14.9) L 10/06/18 11:00 INR 0.92 (0.87-1.13) 10/06/18 11:00 3324.92 ng/mlDDU (0-234) H 10/06/18 11:00 Abnormal lab findings: Abnormal Labs 10/06/18 10/06/18 10/06/18 11:00 11:00 11:00 WBC 14.2 H Hct 45.2 H RDW 16.0 H [place] % (Auto) 8.6 H [place] # 1.2 H Seg Neutrophils % Seg Neutrophils # 8.8 H PT 12.1 L D-Dimer POC ABG pH POC ABG pCO2 POC ABG pO2 Sodium Potassium 3.4 L BUN 26 H Creatinine 1.5 H Glucose 138 H POC Glucose Calcium 10.4 H ALT Albumin Urine Creatinine 10/06/18 10/06/18 10/06/18 11:00 11:39 20:48 WBC Hct RDW [place] % (Auto) [place] # Seg Neutrophils % Seg Neutrophils # PT D-Dimer 3324.92 H POC ABG pH 7.262 L 7.472 H POC ABG pCO2 61.8 H 31.2 L POC ABG pO2 148 H Sodium Potassium BUN Creatinine Glucose POC Glucose Calcium ALT Albumin Urine Creatinine 10/06/18 10/07/18 10/07/18 Unknown 04:01 04:17 WBC Hct RDW 15.9 H [place] % (Auto) [place] # Seg Neutrophils % 80.7 H Seg Neutrophils # PT D-Dimer POC ABG pH 7.463 H POC ABG pCO2 POC ABG pO2 72 L Sodium Potassium BUN Creatinine Glucose POC Glucose Calcium ALT Albumin Urine Creatinine 124.5 H 06/10/07/18 10/08/18 04:17 23:49 05:25 WBC Hct RDW [place] % (Auto) [place] # Seg Neutrophils % Seg Neutrophils # PT D-Dimer POC ABG pH POC ABG pCO2 POC ABG pO2 Sodium Potassium BUN 26 H Creatinine Glucose 105 H POC Glucose 106 H 144 H Calcium ALT 6 L Albumin 3.1 L Urine Creatinine 10/08/18 10/08/18 10/08/18 05:40 11:17 11:36 WBC Hct RDW [place] % (Auto) [place] # Seg Neutrophils % Seg Neutrophils # PT D-Dimer POC ABG pH 7.330 L POC ABG pCO2 46.0 H POC ABG pO2 71 L Sodium Potassium 3.5 L BUN 27 H Creatinine Glucose 132 H POC Glucose 129 H Calcium ALT Albumin Urine Creatinine 10/08/18 10/08/18 10/09/18 17:25 23:27 04:09 WBC Hct RDW [place] % (Auto) [place] # Seg Neutrophils % Seg Neutrophils # PT D-Dimer POC ABG pH POC ABG pCO2 POC ABG pO2 Sodium 136 L Potassium BUN 23 H Creatinine Glucose 132 H POC Glucose 149 H 116 H Calcium ALT Albumin Urine Creatinine 10/09/18 10/09/18 10/09/18 04:38 05:34 11:09 WBC Hct RDW [place] % (Auto) [place] # Seg Neutrophils % Seg Neutrophils # PT D-Dimer POC ABG pH POC ABG pCO2 49.2 H POC ABG pO2 77 L 77 L Sodium Potassium BUN Creatinine Glucose POC Glucose 134 H Calcium ALT Albumin Urine Creatinine 10/09/18 11:38 WBC Hct RDW [place] % (Auto) [place] # Seg Neutrophils % Seg Neutrophils # PT D-Dimer POC ABG pH POC ABG pCO2 POC ABG pO2 Sodium Potassium BUN Creatinine Glucose POC Glucose 106 H Calcium ALT Albumin Urine Creatinine Allied health notes reviewed: nursing
[2018-10-10] MEDS: APRESOLINE IV PRN ×2 (07:47→08:53)
[2018-10-10] MEDS: DUONEB *Not for PRN Use IH SCH ×2 (09:37→16:50)
[2018-10-10] MEDS: SODIUM CHLORIDE FLUSH SYRINGE 10 ML IV SCH ×3 (09:49→22:30)
[2018-10-10] MEDS ORDERED: LOPRESSOR PO SCH (10:00)
[2018-10-10] MEDS ORDERED: ZOFRAN IV ONE (10:00)
[2018-10-10] MEDS: BENADRYL IV SCH ×2 (10:07→22:32)
[2018-10-10] MEDS: PEPCID IV SCH (10:08)
[2018-10-10] MEDS: NORVASC PO SCH ×2 (10:08→14:50)
[2018-10-10] MEDS: SOLU-Medrol IV SCH (10:08)
[2018-10-10] MEDS: HEPARIN SUB-Q SCH ×2 (10:16→22:36)
--- NOTE | 2018-10-10 10:20 | Progress Note ---
Assessment and Plan /Acute hypoxic Respiratory failure due to angioedema Placed on scheduled nebulizer therapy, pulmonary consulted, iv steroid, IV Benadryl Plan for extubation today, speech eval following extubation / Angioedema Stopped ACEI, much resolved On Iv steroid and Benadryl therapy, supportive care, monitor bp q shift, / Acute renal failure due to vasomotor nephropathy Resolved with IVF resuscitation therapy, monitor uop q shift, avoid nephrotoxic agents. 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 The aggregate critical care time was [35] minutes. This time is in addition to time spent performing reported procedures but includes the following: [x] Data Review and interpretation [x] Patient assessment and monitoring of vital signs [x] Documentation [x] Medication orders and management Brief history: This is a 67-year-old female. Her past medical history includes nicotine dependence, hypertension, migraine headaches, chronic lumbar pain, brought to the hospital by emergency medical services for presumed ALEXIS inhibitor angioedema. per EMS they were called for tongue swelling and Patient was treated with Pepcid, Benadryl, Solu-Medrol, subcutaneous tissues epinephrine 1 in the field. Upon arrival to the emergency room, the patient has a grossly swollen and distorted tongue, + drooling, and did not respond to additional 2 doses of subcutaneous epinephrine. Decision is made to prophylactically intubate to protect airway. Patient was intubated and admitted to ICU Hospitalists physical: GENERAL: well-developed and well-nourished -[place] female sitting on bed appeared to be in no discomfort. HEENT: Normocephalic. Atraumatic. No conjunctival congestion or icterus. Patient has moist mucous membranes, no tongue swelling. Dobbhoff tube place through her nostril NECK: Supple. Trachea midline. Patient is mechanically ventilated with ET tube CHEST/LUNGS: Clear to auscultated bilaterally, breathing nonlabored. No wheezes crackles or rhonchi. HEART/CARDIOVASCULAR: Regular in rate and rhythm. S1 and S2 positive. ABDOMEN: Abdomen is soft, nontender. Patient has normal bowel sounds. SKIN: There is no rash. Warm and dry. NEURO: Patient able to follow command, moves all her extremities MUSCULOSKELETAL: No joint effusion or tenderness. EXTRIMITY: No edema, no cyanosis or clubbing. PSYCH: Cooperative. Subjective Date of service: 10/09/18 Principal diagnosis: Angioedema; Ac. hypoxemic resp failure; HTN; Tobacco use disorder Interval history: Patient seen and examined. Medical records and medication list reviewed. No acute event overnight noted by the RN. Patient remains intubated, but off sedation and off tube feeding Patient is an alert and trouble to follow command even though she is intubated Plan for extubation today Discussed plan of care at bedside with patient's RN, updated family at bedside. Objective - Constitutional Vitals: Vital Signs - 12hr 10/09/18 10/09/18 10/09/18 22:30 23:00 23:28 Temperature Pulse Rate 96 H 108 H Pulse Rate [ 104 H Anterior Bilateral] Respiratory 12 19 Rate Respiratory 18 Rate [Anterior Bilateral] Blood Pressure 178/95 175/105 O2 Sat by Pulse 98 94 Oximetry 10/09/18 10/10/18 10/10/18 23:35 00:00 01:00 Temperature 98.5 F Pulse Rate 89 107 H Pulse Rate [ 113 H Anterior Bilateral] Respiratory 18 11 L Rate Respiratory 18 Rate [Anterior Bilateral] Blood Pressure 138/80 157/93 O2 Sat by Pulse 93 97 Oximetry 10/10/18 10/10/18 10/10/18 02:00 03:00 04:00 Temperature Pulse Rate 131 H 101 H 97 H Pulse Rate [ Anterior Bilateral] Respiratory 20 16 21 Rate Respiratory Rate [Anterior Bilateral] Blood Pressure 157/93 157/89 156/90 O2 Sat by Pulse 91 93 Oximetry 10/10/18 10/10/18 10/10/18 04:03 05:00 05:50 Temperature Pulse Rate 100 H Pulse Rate [ Anterior Bilateral] Respiratory 16 11 L 20 Rate Respiratory Rate [Anterior Bilateral] Blood Pressure 158/95 O2 Sat by Pulse Oximetry 10/10/18 10/10/18 10/10/18 05:53 06:00 07:47 Temperature 98.9 F Pulse Rate 96 H 106 H Pulse Rate [ Anterior Bilateral] Respiratory 15 Rate Respiratory Rate [Anterior Bilateral] Blood Pressure 165/99 153/119 O2 Sat by Pulse Oximetry 10/10/18 10/10/18 10/10/18 08:00 08:53 10:08 Temperature 99.0 F Pulse Rate 103 H 98 H Pulse Rate [ Anterior Bilateral] Respiratory Rate Respiratory Rate [Anterior Bilateral] Blood Pressure 159/107 161/97 O2 Sat by Pulse Oximetry - Labs CBC & Chem 7: 10/07/18 04:17 10/09/18 04:09 Labs: Abnormal lab results 10/09/18 10/09/18 Range/Units 11:09 11:38 POC ABG pO2 77 L (80-105) POC Glucose 106 H (70-105)
[2018-10-10] MEDS ORDERED: REGLAN IV ONE (10:39)
[2018-10-10] MEDS: CLEOCIN 600 MG/50 mL 600 MG/50 ML BAG IV SCH (15:08)
--- NOTE | 2018-10-10 16:32 | XRay Report ---
PROCEDURE: XR ABDOMEN 1V AP TECHNIQUE: Abdominal radiograph, single view. HISTORY: n/v COMPARISONS: None . FINDINGS: Bowel gas pattern: Moderately increased amount of stool and gas within the colon Masses or calcifications: None . Bony structures: No significant abnormality . Other: None . IMPRESSION: Moderately increased amount of stool and gas within the colon This document is electronically signed by Terrence eJffery MD., October 10 2018 04:30:03 PM ET
--- NOTE | 2018-10-10 18:10 | Progress Note ---
Assessment and Plan /N/V - from severe constipation - adominal xry showed moderate amount of stool in the colon - Started stool softener and if no result then will place on enema - We'll continue clear liquid diet for now Acute hypoxic Respiratory failure due to angioedema Placed on scheduled nebulizer therapy, pulmonary consulted, wean off iv steroid, IV Benadryl s/p extubation 10/09/18, / Angioedema Stopped ACEI, much resolved On Iv steroid and Benadryl therapy, supportive care, monitor bp q shift, / Acute renal failure due to vasomotor nephropathy Resolved with IVF resuscitation therapy, monitor uop q shift, avoid nephrotoxic agents. 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 Her past medical history includes nicotine dependence, hypertension, migraine headaches, chronic lumbar pain, brought to the hospital by emergency medical services for presumed ALEXIS inhibitor angioedema. per EMS they were called for tongue swelling and Patient was treated with Pepcid, Benadryl, Solu-Medrol, subcutaneous tissues epinephrine 1 in the field. Upon arrival to the emergency room, the patient has a grossly swollen and distorted tongue, + drooling, and did not respond to additional 2 doses of subcutaneous epinephrine. Decision is made to prophylactically intubate to protect airway. Patient was intubated and admitted to ICU. She was then extubated on 10/09/2018. complaining of nausea and vomiting following extubation, abdominal x-ray showed moderate to severe amount of stool in the colon, placed on stool softener. Transfer to telemetry today Hospitalists physical: GENERAL: well-developed and well-nourished -[place] female sitting on bed appeared to be in mild discomfort. HEENT: Normocephalic. Atraumatic. No conjunctival congestion or icterus. Patient has moist mucous membranes, no tongue swelling. NECK: Supple. Trachea midline. CHEST/LUNGS: Clear to auscultated bilaterally, breathing nonlabored. No wheezes crackles or rhonchi. HEART/CARDIOVASCULAR: Regular in rate and rhythm. S1 and S2 positive. ABDOMEN: Abdomen is soft, nontender. Patient has normal bowel sounds. SKIN: There is no rash. Warm and dry. NEURO: Patient able to follow command, moves all her extremities MUSCULOSKELETAL: No joint effusion or tenderness. EXTRIMITY: No edema, no cyanosis or clubbing. PSYCH: Cooperative. No agitation Subjective Date of service: 10/10/18 Principal diagnosis: Angioedema; Ac. hypoxemic resp failure; HTN; Tobacco use disorder Interval history: Patient seen and examined. Medical records and medication list reviewed. No acute event overnight noted by the RN. patient c/o n/v, no abdominal pain Discussed plan of care at bedside with patient's RN, updated family at bedside. Objective - Constitutional Vitals: Vital Signs - 12hr 10/10/18 10/10/18 10/10/18 07:00 07:47 08:00 Temperature 99.0 F Pulse Rate 99 H 106 H 122 H Respiratory 19 15 Rate Blood Pressure 169/101 153/119 169/105 O2 Sat by Pulse 92 94 Oximetry 10/10/18 10/10/18 10/10/18 08:53 09:00 10:00 Temperature Pulse Rate 103 H 106 H 115 H Respiratory 19 22 Rate Blood Pressure 159/107 159/99 161/97 O2 Sat by Pulse 93 92 Oximetry 10/10/18 10/10/18 10/10/18 10:08 11:00 12:00 Temperature 98.5 F Pulse Rate 98 H 100 H 92 H Respiratory 17 14 Rate Blood Pressure 161/97 158/96 157/99 O2 Sat by Pulse 92 94 Oximetry 10/10/18 10/10/18 10/10/18 13:00 14:00 14:50 Temperature Pulse Rate 92 H 102 H 96 H Respiratory 17 20 Rate Blood Pressure 152/98 165/108 151/103 O2 Sat by Pulse 93 Oximetry 10/10/18 10/10/18 10/10/18 15:00 16:00 17:00 Temperature 98.7 F Pulse Rate 91 H 89 101 H Respiratory 17 17 18 Rate Blood Pressure 155/95 156/97 155/102 O2 Sat by Pulse 95 96 95 Oximetry - Labs CBC & Chem 7: 10/11/18 06:45 10/11/18 06:45
[2018-10-10] MEDS ORDERED: FLEET PR PRN (18:24)
[2018-10-10] MEDS ORDERED: DULCOLAX PO SCH (19:00)
[2018-10-10] MEDS ORDERED: MIRALAX 3350 PO SCH (19:00)
[2018-10-10] MEDS ORDERED: REGLAN IV PRN (20:40)
[2018-10-10] MEDS ORDERED: ZOFRAN IV PRN (20:40)
[2018-10-10] MEDS: COREG PO SCH (22:35)
[2018-10-10] MEDS: COLACE PO SCH (22:36)
[2018-10-11] MEDS: HumaLOG SUB-Q SCH ×2 (00:42→05:28)
[2018-10-11] MEDS: DUONEB *Not for PRN Use IH SCH ×3 (00:45→15:02)
[2018-10-11] MEDS: CLEOCIN 600 MG/50 mL 600 MG/50 ML BAG IV SCH ×2 (01:14→09:15)
[2018-10-11] MEDS: SODIUM CHLORIDE FLUSH SYRINGE 10 ML IV PRN (01:19)
[2018-10-11 08:33] LABS: Hematocrit 44.2 % (30.3-42.9); Hemoglobin 14.5 gm/dl (10.1-14.3); Mean Corpuscular HGB Conc 33 % (30-34); Mean Corpuscular Volume 88 fl (79-97); Platelet Count 256 K/mm3 (140-440); Red Blood Count 5.03 M/mm3 (3.65-5.03); Red Cell Distribution Width 16.4 % (13.2-15.2)
[2018-10-11] MEDS: PERCOCET 5/325 PO PRN (08:46)
[2018-10-11 08:59] LABS: BUN/Creatinine Ratio 20; Blood Urea Nitrogen 16 mg/dL (7-17); Calcium 9.5 mg/dL (8.4-10.2); Hemolysis Index 6
[2018-10-11] MEDS: BENADRYL IV SCH (09:13)
[2018-10-11] MEDS: PEPCID IV SCH (09:13)
[2018-10-11] MEDS: COREG PO SCH (09:14)
[2018-10-11] MEDS: COLACE PO SCH (09:15)
[2018-10-11] MEDS: NORVASC PO SCH (09:16)
[2018-10-11] MEDS: HEPARIN SUB-Q SCH (09:16)
[2018-10-11] MEDS: SODIUM CHLORIDE FLUSH SYRINGE 10 ML IV SCH (09:16)
--- NOTE | 2018-10-11 09:41 | Progress Note ---
Assessment and Plan - ALEXIS inhibitor Angioedema -Acute hypoxemic respiratory failure s/p MVS -HTN -h/o Tobacco use disorder/Nicotine dependence -h/o Chronic migraines -Chronic radiculopathy -PRN CXR and ABG - Wean supplemental oxygen for O2 sats > 90% -Bronchodilators -Accuchecks with glycemic control. Target blood glucose <180mg/dL -Blood pressure control -VTE prophylaxis -Tobacco cessation counselling -Nicotine withdrawal precautions -PT/OT/Ambulation--increase activity -Promotility agents, anti-emetics, bowel regimen Discharge planning Subjective Date of service: 10/11/18 Principal diagnosis: Angioedema; Ac. hypoxemic resp failure; HTN; Tobacco use disorder Interval history: Patient is seen today for: ALEXIS inhibitor Angioedema; Acute hypoxemic respiratory failure on MVS; HTN; h/o Tobacco use disorder/Nicotine dependence; h/o Chronic migraines; Chronic radiculopathy Seen and examined at bedside; 24hour events reviewed; vitals, labs, medications, chart reviewed; nursing and respiratory care staff consulted; no adverse overnight events reported to me; extubated, doing well from a pulmonary matthew dpoint; denies any fevers, no chills, no chest pain. Family visiting Objective Vital Signs - 12hr 10/10/18 10/10/18 10/10/18 22:35 23:14 23:15 Temperature 98.8 F Pulse Rate 89 91 H Respiratory 18 Rate Blood Pressure 146/77 158/95 O2 Sat by Pulse 92 Oximetry 10/11/18 10/11/18 10/11/18 00:46 04:32 04:33 Temperature 98.5 F Pulse Rate 90 Respiratory 18 Rate Blood Pressure 147/85 O2 Sat by Pulse 93 92 Oximetry 10/11/18 10/11/18 10/11/18 07:53 09:14 09:16 Temperature 98.3 F Pulse Rate 109 H 120 H 109 H Respiratory 20 Rate Blood Pressure 141/93 141/93 141/93 O2 Sat by Pulse 98 Oximetry Constitutional: no acute distress Eyes: non-icteric ENT: oropharynx moist Neck: supple, no lymphadenopathy, no JVD, other (No thyromegaly) Effort: normal Ascultation: Bilateral: diminished breath sounds, rhonchi Percussion: Bilateral: not dull Cardiovascular: regular rate and rhythm, other (S1,S2, no murmurs, gallops or rubs) Gastrointestinal: normoactive bowel sounds, soft, non-tender, non-distended Integumentary: normal Extremities: no cyanosis, no edema, pink and warm, pulses normal, no ischemia or petechiae Neurologic: normal mental status, non-focal exam (grossly), pupils equal and round, CN II-XII normal, other Psychiatric: mood appropriate, affect normal CBC and BMP: 10/11/18 06:45 10/11/18 06:45 ABG, PT/INR, D-dimer: ABG POC ABG pH 7.429 (7.35-7.45) 10/09/18 11:09 POC ABG pCO2 41.1 (35-45) 10/09/18 11:09 POC ABG pO2 77 (80-105) L 10/09/18 11:09 POC ABG HCO3 27.2 (22-26 mml/L) 10/09/18 11:09 POC ABG Total CO2 28 (23-27mmol/L) 10/09/18 11:09 POC ABG O2 Sat 96 10/09/18 11:09 PT/INR, D-dimer PT 12.1 Sec. (12.2-14.9) L 10/06/18 11:00 INR 0.92 (0.87-1.13) 10/06/18 11:00 3324.92 ng/mlDDU (0-234) H 10/06/18 11:00 Abnormal lab findings: Abnormal Labs 10/06/18 10/06/18 10/06/18 11:00 11:00 11:00 WBC 14.2 H Hgb Hct 45.2 H RDW 16.0 H Evangeline % (Auto) 8.6 H Evangeline # 1.2 H Seg Neutrophils % Seg Neutrophils # 8.8 H PT 12.1 L D-Dimer POC ABG pH POC ABG pCO2 POC ABG pO2 Sodium Potassium 3.4 L Chloride BUN 26 H Creatinine 1.5 H Glucose 138 H POC Glucose Calcium 10.4 H ALT Albumin Urine Creatinine 10/06/18 10/06/18 10/06/18 11:00 11:39 20:48 WBC Hgb Hct RDW Evangeline % (Auto) Evangeline # Seg Neutrophils % Seg Neutrophils # PT D-Dimer 3324.92 H POC ABG pH 7.262 L 7.472 H POC ABG pCO2 61.8 H 31.2 L POC ABG pO2 148 H Sodium Potassium Chloride BUN Creatinine Glucose POC Glucose Calcium ALT Albumin Urine Creatinine 10/06/18 10/07/18 10/07/18 Unknown 04:01 04:17 WBC Hgb Hct RDW 15.9 H Evangeline % (Auto) Evangeline # Seg Neutrophils % 80.7 H Seg Neutrophils # PT D-Dimer POC ABG pH 7.463 H POC ABG pCO2 POC ABG pO2 72 L Sodium Potassium Chloride BUN Creatinine Glucose POC Glucose Calcium ALT Albumin Urine Creatinine 124.5 H 10/07/18 10/07/18 10/08/18 04:17 23:49 05:25 WBC Hgb Hct RDW Evangeline % (Auto) Evangeline # Seg Neutrophils % Seg Neutrophils # PT D-Dimer POC ABG pH POC ABG pCO2 POC ABG pO2 Sodium Potassium Chloride BUN 26 H Creatinine Glucose 105 H POC Glucose 106 H 144 H Calcium ALT 6 L Albumin 3.1 L Urine Creatinine 10/08/18 10/08/18 10/08/18 05:40 11:17 11:36 WBC Hgb Hct RDW Evangeline % (Auto) Evangeline # Seg Neutrophils % Seg Neutrophils # PT D-Dimer POC ABG pH 7.330 L POC ABG pCO2 46.0 H POC ABG pO2 71 L Sodium Potassium 3.5 L Chloride BUN 27 H Creatinine Glucose 132 H POC Glucose 129 H Calcium ALT Albumin Urine Creatinine 10/08/18 10/08/18 10/09/18 17:25 23:27 04:09 WBC Hgb Hct RDW Evangeline % (Auto) Evangeline # Seg Neutrophils % Seg Neutrophils # PT D-Dimer POC ABG pH POC ABG pCO2 POC ABG pO2 Sodium 136 L Potassium Chloride BUN 23 H Creatinine Glucose 132 H POC Glucose 149 H 116 H Calcium ALT Albumin Urine Creatinine 10/09/18 10/09/18 10/09/18 04:38 05:34 11:09 WBC Hgb Hct RDW Evangeline % (Auto) Evangeline # Seg Neutrophils % Seg Neutrophils # PT D-Dimer POC ABG pH POC ABG pCO2 49.2 H POC ABG pO2 77 L 77 L Sodium Potassium Chloride BUN Creatinine Glucose POC Glucose 134 H Calcium ALT Albumin Urine Creatinine 10/09/18 10/11/18 10/11/18 11:38 06:45 06:45 WBC 15.7 H Hgb 14.5 H Hct 44.2 H RDW 16.4 H Evangeline % (Auto) Evangeline # Seg Neutrophils % Seg Neutrophils # PT D-Dimer POC ABG pH POC ABG pCO2 POC ABG pO2 Sodium Potassium 3.1 L D Chloride 96.9 L BUN Creatinine Glucose POC Glucose 106 H Calcium ALT Albumin Urine Creatinine Allied health notes reviewed: nursing
[2018-10-11] MEDS ORDERED: SOLU-Medrol IV SCH (10:00)
[2018-10-11 10:38] LABS: Basophils % (Manual) 0 % (0.0-1.8); Eosinophils % (Manual) 0 % (0.0-4.3); Total Cells Counted 100
[2018-10-11 10:39] LABS: Platelet Estimate Consistent w Auto; RBC Morphology Normal
[2018-10-11 13:02] VITALS: BP 132/81
--- NOTE | 2018-10-11 14:02 | Discharge Summary ---
Providers - Providers Date of Admission: 10/06/18 12:00 Date of discharge: 10/11/18 Attending physician: SIM DENNISON 10/06/18 10:49 Consult to Dietitian/Nutrition [CONS] Routine Physician Instructions: Reason For Exam: Reason for Consult: Evaluate nutritional intake Consult to Physician [CONS] Stat Comment: Dr. Holland spoke with Dr. Christy @ [phone] Consulting Provider: CHASITY CHRISTY Physician Instructions: Reason For Exam: resp failure 10/07/18 11:25 Consult to Dietitian/Nutrition [CONS] Routine Physician Instructions: Reason For Exam: Reason for Consult: Write/Manage Tube Feeding 10/09/18 12:28 Speech Therapy Evaluation and Treat [CONS] Routine Reason For Exam: aspiration/angioedema Hospitalization Condition: Critical Pertinent studies: CXR Abdominal xry Hospital course: This is a 67-year-old female. Her past medical history includes nicotine dependence, hypertension, migraine headaches, chronic lumbar pain, brought to the hospital by emergency medical services for presumed ALEXIS inhibitor angioedema. per EMS they were called for tongue swelling and Patient was treated with Pepcid, Benadryl, Solu-Medrol, subcutaneous tissues epinephrine 1 in the field. Upon arrival to the emergency room, the patient has a grossly swollen and distorted tongue, + drooling, and did not respond to additional 2 doses of subcutaneous epinephrine. Decision is made to prophylactically intubate to protect airway. Patient was intubated and admitted to ICU. She was then extubated on 10/09/2018. complaining of nausea and vomiting following extubation, abdominal x-ray showed moderate to severe amount of stool in the colon, placed on stool softener, her symptom resolved. Sputum cx grew hemophillus, treated for CAP. discharged home in stable condition. BP meds were adjusted. Discharge diagnosis: /Acute hypoxic Respiratory failure, resolved due to angioedema Placed on scheduled nebulizer therapy, pulmonary consulted, wean off iv steroid, IV Benadryl s/p extubation 10/09/18, /N/V, resolved - from severe constipation - adominal xry showed moderate amount of stool in the colon - Started stool softener and s/p enema /CAP with hemophillus influenza + sputum cx w/o sepsis, likely POA - treated with abx /Leukocytosis, from steroid, no sepsis / Angioedema Stopped ACEI, much resolved treated with Iv steroid and Benadryl therapy, supportive care, monitored bp q shift, / Acute renal failure due to vasomotor nephropathy Resolved with IVF resuscitation therapy, monitored uop q shift, avoid nephrotoxic agents. / HTN, continue norvasc and coreg /Tobacco abuse, h/o - counseled for quiting /DVT prophylaxis SCD to BLE while in bed, prophylactic heparin Disposition: home with self care Hospitalists physical: GENERAL: well-developed and well-nourished -[place] female sitting on bed appeared to be in no discomfort. HEENT: Normocephalic. Atraumatic. No conjunctival congestion or icterus. Patient has moist mucous membranes, no tongue swelling. NECK: Supple. Trachea midline. CHEST/LUNGS: Clear to auscultated bilaterally, breathing nonlabored. No wheezes crackles or rhonchi. HEART/CARDIOVASCULAR: Regular in rate and rhythm. S1 and S2 positive. ABDOMEN: Abdomen is soft, nontender. Patient has normal bowel sounds. SKIN: There is no rash. Warm and dry. NEURO: Patient able to follow command, moves all her extremities MUSCULOSKELETAL: No joint effusion or tenderness. EXTRIMITY: No edema, no cyanosis or clubbing. PSYCH: Cooperative. No agitation Disposition: DC-01 TO HOME OR SELFCARE Time spent for discharge: 34 minutes Core Measure Documentation - Palliative Care Palliative Care/ Comfort Measures: Not Applicable - Core Measures Any of the following diagnoses?: none Exam - Constitutional Vitals: Temp Pulse Resp BP Pulse Ox 98.4 F 95 H 18 132/81 93 10/11/18 11:14 10/11/18 11:14 10/11/18 11:14 10/11/18 11:14 10/11/18 12:36 Plan Activity: advance as tolerated Weight Bearing Status: Weight Bear as Tolerated Diet: low fat, low salt Follow up with: [facility] [Other] - 3-5 Days Prescriptions: Amoxicillin/K Clav Tab [Augmentin 875 mg] 1 tab PO Q12HR #10 tab Docusate Sodium [Colace CAP] 100 mg PO BID #30 capsule Carvedilol [Coreg] 3.125 mg PO BID #60 tablet Bisacodyl [Dulcolax tab] 10 mg PO Q24H #14 tablet Aspirin EC [Halfprin EC] 81 mg PO QDAY #30 tablet.dr amLODIPine [Norvas] 10 mg PO DAILY #30 tablet
[2018-10-11] MEDS ORDERED: K-DUR PO ONE (15:00)
== END 2018-10-11 14:55 | disposition home or self-care (01) | DRG 208 ==
LOC: ED 10:03 → CC1 12:00 → 4A 10-10 19:00
PROVIDERS: ADMIT Internal Medicine; ATTEND Internal Medicine
PROC: 5A1945Z Respiratory Ventilation, 24-96 Consecutive Hours (ICD-10-PCS; principal; 2018-10-06)
PROC: 0BH17EZ Insertion of Endotracheal Airway into Trachea, Via Natural or Artificial Opening (ICD-10-PCS; 2018-10-06)
PROC: 4A033R1 Measurement of Arterial Saturation, Peripheral, Percutaneous Approach (ICD-10-PCS; 2018-10-06)
DX: J96.01 Acute respiratory failure with hypoxia (principal); J14 Pneumonia due to Hemophilus influenzae; N17.0 Acute kidney failure with tubular necrosis; T78.3XXA Angioneurotic edema, initial encounter; I10 Essential (primary) hypertension; F17.200 Nicotine dependence, unspecified, uncomplicated; G43.909 Migraine, unspecified, not intractable, without status migrainosus; M54.5 Low back pain; G89.29 Other chronic pain; K59.00 Constipation, unspecified; M54.10 Radiculopathy, site unspecified; D72.829 Elevated white blood cell count, unspecified; Z71.6 Tobacco abuse counseling; T44.5X5A Adverse effect of predominantly beta-adrenoreceptor agonists, initial encounter; Y92.89 Other specified places as the place of occurrence of the external cause
CPT/HCPCS: 36415; 36600; 71045; 74018; 80048; 80053; 82570; 82803; 82962; 83735; 84300; 84478; 85007; 85025; 85379; 85610; 85730; 87070; 87205; 93005; 93010; 94002; 94003; 94640; 94760; G0378; J0360; J1200; J1644; J2405; J2704; J2765; J2920; J2930; J3010; J7030

== ENCOUNTER 2020-06-05 21:16 | Emergency (ER) | payer MEDICARE ==
--- NOTE | 2020-06-05 22:21 | Event Note ---
ED Screening Note Date of service: 06/05/20 Time: 22:00 ED Screening Note: Patient is a 69 yo AA female with a h/o HTN who presents to the ED with c/o acute onset dyspnea, bilateral lower leg swelling and bilateral ear pressure and hearing loss for the last 3 days. Patient denies chest pain, dizziness, fall, traumatic injury or headache, cough, fever, chills, nausea, vomiting and abdominal pain. This initial assessment/diagnostic orders/clinical plan/treatment(s) is/are subject to change based on patients health status, clinical progression and re- assessment by fellow clinical providers in the ED. Further treatment and workup at subsequent clinical providers discretion. Patient/guardian urged not to elope from the ED as their condition may be serious if not clinically assessed and managed. Initial orders include: CBC, CMP, EKG, Troponin; CRX, Head CT w/o contrast
--- NOTE | 2020-06-05 22:38 | XRay Report ---
XR chest routine 2V INDICATION / CLINICAL INFORMATION: dyspnea. COMPARISON: 10/09/2018 FINDINGS: SUPPORT DEVICES: None. HEART /PULMONARY VASCULATURE: No significant abnormality. LUNGS / PLEURA: No significant pulmonary or pleural abnormality. No pneumothorax. ADDITIONAL FINDINGS: No significant additional findings. IMPRESSION: 1. No acute findings. Signer Name: Jasper Jorgensen MD Signed: 06/05/2020 10:34 PM Workstation Name: [id number]
[2020-06-05 22:56] LABS: Basophils # (Auto) 0.1 K/mm3 (0.0-0.1); Basophils % (Auto) 0.8 % (0.0-1.8); Eosinophils % (Auto) 0.5 % (0.0-4.3); Hematocrit 43.8 % (30.3-42.9); Hemoglobin 14.5 gm/dl (10.1-14.3); Lymphocytes # (Auto) 2.9 K/mm3 (1.2-5.4); Lymphocytes % (Auto) 35.4 % (13.4-35.0); Mean Corpuscular HGB Conc 33 % (30-34); Mean Corpuscular Volume 96 fl (79-97); Monocytes # (Auto) 1.1 K/mm3 (0.0-0.8); Monocytes % (Auto) 13.4 % (0.0-7.3); Platelet Count 253 K/mm3 (140-440); Red Blood Count 4.58 M/mm3 (3.65-5.03); Red Cell Distribution Width 15.2 % (13.2-15.2)
--- NOTE | 2020-06-05 23:03 | Cat Scan Report ---
CT HEAD WITHOUT CONTRAST INDICATION / CLINICAL INFORMATION: dyspnea. TECHNIQUE: All CT scans at this location are performed using CT dose reduction for ALARA by means of automated exposure control. COMPARISON: CT dated 09/11/2018 FINDINGS: BRAIN PARENCHYMA: No acute intracranial hemorrhage. No evidence of recent infarct. No mass effect or midline shift. White matter chronic small vessel ischemic changes. VENTRICULAR SYSTEM/EXTRA-AXIAL SPACES: Ventricles are normal for age. No extra-axial fluid collection . ORBITS: Normal as visualized. SKELETAL SYSTEM/SOFT TISSUES: Normal bones and soft tissues. PARANASAL SINUSES/MASTOID AIR CELLS: No significant abnormality. ADDITIONAL FINDINGS: None. IMPRESSION: 1. No acute intracranial abnormality. Signer Name: Jasper Jorgensen MD Signed: 06/05/2020 10:58 PM Workstation Name: [id number]
[2020-06-05 23:20] LABS: Alanine Aminotransferase 9 units/L (7-56); Albumin 3.9 g/dL (3.9-5); BUN/Creatinine Ratio 20; Blood Urea Nitrogen 30 mg/dL (7-17); Calcium 9.1 mg/dL (8.4-10.2); Hemolysis Index 18
--- NOTE | 2020-06-06 01:12 | Emergency Department Report ---
ED General Adult HPI - General Chief complaint: Extremity Problem,Nontraumatic Stated complaint: FOOT SWOLLEN Time Seen by Provider: 06/06/20 00:42 Source: patient Mode of arrival: Ambulatory Limitations: Other - History of Present Illness Initial comments: Patient is 69 years old female with history of hypertension. Patient presented to the ER for evaluation of shortness of breath and bilateral lower extremity swelling. Patient also stating that she is having trouble hearing for the last 3 days. When I evaluated the patient in the emergency room she stated that her shortness of breath is resolved however she is concerning about hearing problem. Patient denied any chest pain, fever or chills. Patient denied any weakness numbness or tingling sensation. No headache. - Related Data Home Medications Medication Instructions Recorded Confirmed Last Taken Omeprazole 40 mg PO DAILY 09/11/18 10/06/18 Unknown Previous Rx's Medication Instructions Recorded Last Taken Type Amoxicillin/K Clav Tab [Augmentin 1 tab PO Q12HR #10 tab 10/11/18 Unknown Rx 875 mg] Aspirin EC [Halfprin EC] 81 mg PO QDAY #30 tablet.dr 10/11/18 Unknown Rx Docusate Sodium [Colace CAP] 100 mg PO BID #30 capsule 10/11/18 Unknown Rx amLODIPine 10 mg PO DAILY #30 tablet 10/11/18 Unknown Rx bisacodyL [Dulcolax tab] 10 mg PO Q24H #14 tablet 10/11/18 Unknown Rx carvediloL [Coreg] 3.125 mg PO BID #60 tablet 10/11/18 Unknown Rx Allergies Allergy/AdvReac Type Severity Reaction Status Date / Time ALEXIS Inhibitors Allergy Severe Angioedema Verified 12/22/17 09:21 lisinopril Allergy Severe Angioedema Verified 12/19/17 13:10 tramadol Allergy Hives Verified 08/08/17 09:17 ED Review of Systems ROS: Stated complaint: FOOT SWOLLEN Other details as noted in HPI Comment: All other systems reviewed and negative Constitutional: denies: chills, fever ENT: ear pain, congestion Cardiovascular: denies: chest pain, palpitations Gastrointestinal: denies: abdominal pain, nausea, vomiting Neurological: denies: headache, weakness, numbness, paresthesias, confusion ED Past Medical Hx - Past Medical History Hx Hypertension: Yes Hx Congestive Heart Failure: No Hx Diabetes: No Hx Headaches / Migraines: Yes Hx Seizures: No (pt denies) Hx Asthma: No Hx COPD: No Additional medical history: chronic back pain - Social History Smoking Status: Never Smoker Substance Use Type: None - Medications Home Medications: Home Medications Medication Instructions Recorded Confirmed Last Taken Type Omeprazole 40 mg PO DAILY 09/11/18 10/06/18 Unknown History Amoxicillin/K Clav Tab [Augmentin 1 tab PO Q12HR #10 tab 10/11/18 Unknown Rx 875 mg] Aspirin EC [Halfprin EC] 81 mg PO QDAY #30 tablet.dr 10/11/18 Unknown Rx Docusate Sodium [Colace CAP] 100 mg PO BID #30 capsule 10/11/18 Unknown Rx amLODIPine 10 mg PO DAILY #30 tablet 10/11/18 Unknown Rx bisacodyL [Dulcolax tab] 10 mg PO Q24H #14 tablet 10/11/18 Unknown Rx carvediloL [Coreg] 3.125 mg PO BID #60 tablet 10/11/18 Unknown Rx ED Physical Exam - General Limitations: Other General appearance: alert, in no apparent distress - Head Head exam: Present: atraumatic, normocephalic, normal inspection - Eye Eye exam: Present: normal appearance - ENT ENT exam: Present: other (Bilateral cerumen impaction.) - Neck Neck exam: Present: normal inspection, full ROM. Absent: tenderness, meningismus - Respiratory Respiratory exam: Present: normal lung sounds bilaterally - Cardiovascular Cardiovascular Exam: Present: regular rate, normal rhythm, normal heart sounds - GI/Abdominal GI/Abdominal exam: Present: soft, normal bowel sounds. Absent: distended, tenderness, guarding, rebound, rigid, organomegaly, mass, bruit, pulsatile mass, hernia - Extremities Exam Extremities exam: Present: normal inspection, full ROM, normal capillary refill. Absent: pedal edema, calf tenderness - Back Exam Back exam: Present: normal inspection, full ROM. Absent: CVA tenderness (R), CVA tenderness (L) - Neurological Exam Neurological exam: Present: alert, oriented X3, CN II-XII intact, normal gait, reflexes normal - Psychiatric Psychiatric exam: Present: normal mood - Skin Skin exam: Present: warm, intact, normal color ED Course Vital Signs 06/05/20 06/06/20 06/06/20 22:05 00:51 02:01 Temperature 97.9 F 97.7 F Pulse Rate 114 H 118 H 104 H Respiratory 14 18 14 Rate Blood Pressure 157/100 148/100 Blood Pressure 153/89 [Left] O2 Sat by Pulse 99 96 100 Oximetry ED Medical Decision Making - Lab Data Result diagrams: 06/05/20 22:37 06/05/20 22:37 - EKG Data -: EKG Interpreted by Me EKG shows normal: sinus rhythm Rate: tachycardia - EKG Data Interpretation: no acute changes - Radiology Data Radiology results: report reviewed - Medical Decision Making Patient is 69 years old female with history of hypertension. Patient presented to the ER for evaluation of shortness of breath and bilateral lower extremity swelling. Patient also stating that she is having trouble hearing for the last 3 days. When I evaluated the patient in the emergency room she stated that her shortness of breath is resolved however she is concerning about hearing problem. Patient denied any chest pain, fever or chills. Patient denied any weakness numbness or tingling sensation. No headache. Labs reviewed and is unremarkable. CTA chest is negative for pulmonary embolism however showed possibility of mild congestive heart failure. Patient given prescription for Lasix and advised to follow-up with property investor in the next 2 to 3 days for further management. Patient discharged home in stable condition. Critical care attestation.: If time is entered above; I have spent that time in minutes in the direct care of this critically ill patient, excluding procedure time. ED Disposition Clinical Impression: Shortness of breath, Congestive heart failure Disposition: DC- TO HOME OR SELFCARE Is pt being admited?: No Condition: Stable Instructions: Shortness of Breath, Adult, [id number], Heart Failure, Diagnosis Referrals: PRIMARY CAREMD [Primary Care Provider] - 3-5 Days [facility] [Provider Group] - 3-5 Days
--- NOTE | 2020-06-06 03:09 | Cat Scan Report ---
CTA CHEST WITH CONTRAST INDICATION / CLINICAL INFORMATION: P.E. PROTOCOL!!! Shortness of breath. TECHNIQUE: Axial CT images were obtained through the chest after injection of IV contrast. 3 plane MO P and/or 3D reconstructions were produced. All CT scans at this location are performed using CT dose reduction for ALARA by means of automated exposure control. COMPARISON: 11/07/2016. FINDINGS: PULMONARY ARTERIES: No central or segmental pulmonary embolus. THORACIC AORTA: No significant abnormality. HEART: There is cardiac enlargement without pericardial effusion. ADENOPATHY: No significant adenopathy. LUNGS/PLEURA: There is moderate diffuse centrilobular emphysema with small scattered nodular densitie s within the right middle lobe (series 2 image 33) and right lower lobe (series 2 images 65 and 95). Mild interlobular septal thickening in the lung bases. No pleural effusion or pneumothorax. ADDITIONAL FINDINGS: None. UPPER ABDOMEN: The gallbladder is distended with dilated common bile duct, unchanged in appearance fr om 11/07/2016 CT. No acute findings in the upper abdomen. SKELETAL STRUCTURES: No significant osseous abnormality. IMPRESSION: 1. No evidence of pulmonary embolus. 2. Small nodular densities in the right middle lobe and right lower lobe, favored to reflect atypical infectious or inflammatory process. Recommend short-term CT in 2-3 months to confirm resolution. 3. Cardiac enlargement with interlobular septal thickening, suggesting mild CHF. Signer Name: Jasper Jorgensen MD Signed: 06/06/2020 3:04 AM Workstation Name: [id number]
[2020-06-06 03:36] VITALS: BP 143/81
== END 2020-06-06 03:45 | disposition home or self-care (01) ==
LOC: ED 21:16
DX: I11.0 Hypertensive heart disease with heart failure (principal); I50.9 Heart failure, unspecified; R06.02 Shortness of breath; G43.909 Migraine, unspecified, not intractable, without status migrainosus; Z79.2 Long term (current) use of antibiotics; Z79.899 Other long term (current) drug therapy; Z88.8 Allergy status to other drugs, medicaments and biological substances
CPT/HCPCS: 36415; 70450; 71046; 71275; 80053; 83880; 84484; 85025; 93005; 99284; Q9967

== ENCOUNTER 2021-01-30 11:28 | Emergency (ER) | payer MEDICARE ==
--- NOTE | 2021-01-30 11:58 | Emergency Department Report ---
ED ENT HPI - General Chief complaint: Earache Stated complaint: CAN'T HEAR/SHAKING Time Seen by Provider: 01/30/21 11:39 Source: patient Mode of arrival: Ambulatory Limitations: No Limitations - History of Present Illness Initial comments: This is a pleasant 70-year-old female presents the emergency department with chief complaint of bilateral ear decreased hearing over the past 3 days. She denies any pain. She denies any tinnitus, fever, chills, night sweats, headache, dizziness, blurry vision, nausea, vomiting, diarrhea, chest pain, shortness of breath, weakness or any other associated symptoms. - Related Data Home Medications Medication Instructions Recorded Confirmed Last Taken Omeprazole 40 mg PO DAILY 09/11/18 10/06/18 Unknown Previous Rx's Medication Instructions Recorded Last Taken Type Amoxicillin/K Clav Tab [Augmentin 1 tab PO Q12HR #10 tab 10/11/18 Unknown Rx 875 mg] Aspirin EC [Halfprin EC] 81 mg PO QDAY #30 tablet.dr 10/11/18 Unknown Rx Docusate Sodium [Colace CAP] 100 mg PO BID #30 capsule 10/11/18 Unknown Rx amLODIPine 10 mg PO DAILY #30 tablet 10/11/18 Unknown Rx bisacodyL [Dulcolax tab] 10 mg PO Q24H #14 tablet 10/11/18 Unknown Rx carvediloL [Coreg] 3.125 mg PO BID #60 tablet 10/11/18 Unknown Rx Furosemide [Lasix] 20 mg PO QDAY #7 tablet 06/06/20 Unknown Rx Potassium Chloride [K-Dur] 10 meq PO QDAY #7 tablet 06/06/20 Unknown Rx Amoxicillin [Trimox CAP] 500 mg PO Q8H #30 capsule 01/30/21 Unknown Rx Allergies Allergy/AdvReac Type Severity Reaction Status Date / Time ALEXIS Inhibitors Allergy Severe Angioedema Verified 01/30/21 11:37 lisinopril Allergy Severe Angioedema Verified 01/30/21 11:37 tramadol Allergy Hives Verified 01/30/21 11:37 ED Dental HPI - General Chief complaint: Earache Stated complaint: CAN'T HEAR/SHAKING Time Seen by Provider: 01/30/21 11:39 Source: patient Mode of arrival: Ambulatory Limitations: No Limitations - Related Data Home Medications Medication Instructions Recorded Confirmed Last Taken Omeprazole 40 mg PO DAILY 09/11/18 10/06/18 Unknown Previous Rx's Medication Instructions Recorded Last Taken Type Amoxicillin/K Clav Tab [Augmentin 1 tab PO Q12HR #10 tab 10/11/18 Unknown Rx 875 mg] Aspirin EC [Halfprin EC] 81 mg PO QDAY #30 tablet. 10/11/18 Unknown Rx Docusate Sodium [Colace CAP] 100 mg PO BID #30 capsule 10/11/18 Unknown Rx amLODIPine 10 mg PO DAILY #30 tablet 10/11/18 Unknown Rx bisacodyL [Dulcolax tab] 10 mg PO Q24H #14 tablet 10/11/18 Unknown Rx carvediloL [Coreg] 3.125 mg PO BID #60 tablet 10/11/18 Unknown Rx Furosemide [Lasix] 20 mg PO QDAY #7 tablet 06/06/20 Unknown Rx Potassium Chloride [K-Dur] 10 meq PO QDAY #7 tablet 06/06/20 Unknown Rx Amoxicillin [Trimox CAP] 500 mg PO Q8H #30 capsule 01/30/21 Unknown Rx Allergies Allergy/AdvReac Type Severity Reaction Status Date / Time ALEXIS Inhibitors Allergy Severe Angioedema Verified 01/30/21 11:37 lisinopril Allergy Severe Angioedema Verified 01/30/21 11:37 tramadol Allergy Hives Verified 01/30/21 11:37 ED Review of Systems ROS: Stated complaint: CAN'T HEAR/SHAKING Other details as noted in HPI Comment: All other systems reviewed and negative Constitutional: denies: chills, fever Eyes: denies: eye pain, eye discharge, vision change ENT: as per HPI, hearing loss. denies: ear pain, throat pain Respiratory: denies: cough, shortness of breath, wheezing Cardiovascular: denies: chest pain, palpitations Endocrine: no symptoms reported Gastrointestinal: denies: abdominal pain, nausea, diarrhea Genitourinary: denies: urgency, dysuria, discharge Musculoskeletal: denies: back pain, joint swelling, arthralgia Skin: denies: rash, lesions Neurological: denies: headache, weakness, paresthesias Psychiatric: denies: anxiety, depression Hematological/Lymphatic: denies: easy bleeding, easy bruising ED Past Medical Hx - Past Medical History Hx Hypertension: Yes Hx Congestive Heart Failure: No Hx Diabetes: No Hx Headaches / Migraines: Yes Hx Seizures: No (pt denies) Hx Asthma: No Hx COPD: No Additional medical history: chronic back pain - Surgical History Past Surgical History?: No - Family History Family history: no significant - Social History Smoking Status: Never Smoker Substance Use Type: None - Medications Home Medications: Home Medications Medication Instructions Recorded Confirmed Last Taken Type Omeprazole 40 mg PO DAILY 09/11/18 10/06/18 Unknown History Amoxicillin/K Clav Tab [Augmentin 1 tab PO Q12HR #10 tab 10/11/18 Unknown Rx 875 mg] Aspirin EC [Halfprin EC] 81 mg PO QDAY #30 tablet.dr 10/11/18 Unknown Rx Docusate Sodium [Colace CAP] 100 mg PO BID #30 capsule 10/11/18 Unknown Rx amLODIPine 10 mg PO DAILY #30 tablet 10/11/18 Unknown Rx bisacodyL [Dulcolax tab] 10 mg PO Q24H #14 tablet 10/11/18 Unknown Rx carvediloL [Coreg] 3.125 mg PO BID #60 tablet 10/11/18 Unknown Rx Furosemide [Lasix] 20 mg PO QDAY #7 tablet 06/06/20 Unknown Rx Potassium Chloride [K-Dur] 10 meq PO QDAY #7 tablet 06/06/20 Unknown Rx Amoxicillin [Trimox CAP] 500 mg PO Q8H #30 capsule 01/30/21 Unknown Rx ED Physical Exam - General Limitations: No Limitations ED Course Vital Signs 01/30/21 11:33 Temperature 97.9 F Pulse Rate 113 H Respiratory 20 Rate Blood Pressure 108/76 O2 Sat by Pulse 93 Oximetry ED Medical Decision Making - Medical Decision Making Patient nontoxic in no acute distress. Vital signs are stable. In both the ears she has some clear fluid behind the tympanic membranes that does not appear to be erythematous or bulging. There is also some dry wax in the ear canals that is close to the tympanic membrane and to close for retrieval in the ER. She had no mastoid tenderness, no fever, no meningeal symptoms. I will treat her with a short course of amoxicillin and anti-inflammatories and recommended outpatient follow-up with ENT as needed. She is instructed return to the ER with any change or worsening symptoms. She verbalized understand the diagnosis, treatment plan and follow-up instructions and all her questions were answered. - Differential Diagnosis otitis meida, otitis externa, cerumen inpaction Critical care attestation.: If time is entered above; I have spent that time in minutes in the direct care of this critically ill patient, excluding procedure time. ED Disposition Clinical Impression: Otitis media Qualifiers: Otitis media type: suppurative Chronicity: acute Laterality: bilateral Recurrence: non-recurrent Spontaneous tympanic membrane rupture: without spontaneous rupture Qualified Code(s): H66.003 - Acute suppurative otitis media without spontaneous rupture of ear drum, bilateral Disposition: 01 HOME / SELF CARE / HOMELESS Is pt being admited?: No Condition: Stable Instructions: Otitis Media, Adult, [id number] Prescriptions: Amoxicillin [Trimox CAP] 500 mg PO Q8H #30 capsule Referrals: ILENE JETER MD [Referring] - 3-5 Days Time of Disposition: 11:56
[2021-01-30 12:37] VITALS: BP 117/79
== END 2021-01-30 12:36 | disposition home or self-care (01) ==
LOC: ED 11:28
DX: H66.93 Otitis media, unspecified, bilateral (principal); I10 Essential (primary) hypertension; G43.909 Migraine, unspecified, not intractable, without status migrainosus; G89.29 Other chronic pain; M54.9 Dorsalgia, unspecified; Z88.5 Allergy status to narcotic agent; Z88.8 Allergy status to other drugs, medicaments and biological substances
CPT/HCPCS: 99282

== ENCOUNTER 2021-02-28 20:59 | Emergency (ER) | payer MEDICARE ==
[2021-02-28 21:12] VITALS: BP 141/93
--- NOTE | 2021-02-28 21:58 | Emergency Department Report ---
ED ENT HPI - General Chief complaint: Earache Stated complaint: EARACHE Time Seen by Provider: 02/28/21 21:36 Source: patient Mode of arrival: Ambulatory Limitations: No Limitations - History of Present Illness Initial comments: 70-year female the past medical history of COPD who continues to smoke, headaches, hypertension, chronic leg edema presents to the hospital complaining of not hearing well in either ear. Right is worse than the left. Patient was here in January with similar symptoms and was told that she had wax buildup and she was prescribed antibiotic. Symptoms improved with treatment. Symptoms reoccurred since yesterday. No barotrauma reported. Patient does not use Q- tips. She is using drops to keep her ears clean. No fever or pain reported. Patient is noted to be tachycardic. She states that she is nervous and use an inhaler prior to ED arrival. She does not currently endorse shortness of breath, chest pain, or lightheadedness - Related Data Home Medications Medication Instructions Recorded Confirmed Last Taken Omeprazole 40 mg PO DAILY 09/11/18 10/06/18 Unknown Previous Rx's Medication Instructions Recorded Last Taken Type Amoxicillin/K Clav Tab [Augmentin 1 tab PO Q12HR #10 tab 10/11/18 Unknown Rx 875 mg] Aspirin EC [Halfprin EC] 81 mg PO QDAY #30 tablet.dr 10/11/18 Unknown Rx Docusate Sodium [Colace CAP] 100 mg PO BID #30 capsule 10/11/18 Unknown Rx amLODIPine 10 mg PO DAILY #30 tablet 10/11/18 Unknown Rx bisacodyL [Dulcolax tab] 10 mg PO Q24H #14 tablet 10/11/18 Unknown Rx carvediloL [Coreg] 3.125 mg PO BID #60 tablet 10/11/18 Unknown Rx Furosemide [Lasix] 20 mg PO QDAY #7 tablet 06/06/20 Unknown Rx Potassium Chloride [K-Dur] 10 meq PO QDAY #7 tablet 06/06/20 Unknown Rx Amoxicillin [Trimox CAP] 500 mg PO Q8H #30 capsule 01/30/21 Unknown Rx Loratadine [Claritin] 10 mg PO DAILY #30 tablet 02/28/21 Unknown Rx Allergies Allergy/AdvReac Type Severity Reaction Status Date / Time ALEXIS Inhibitors Allergy Severe Angioedema Verified 01/30/21 11:37 lisinopril Allergy Severe Angioedema Verified 01/30/21 11:37 tramadol Allergy Hives Verified 01/30/21 11:37 ED Dental HPI - General Chief complaint: Earache Stated complaint: EARACHE Time Seen by Provider: 02/28/21 21:36 Source: patient Mode of arrival: Ambulatory Limitations: No Limitations - Related Data Home Medications Medication Instructions Recorded Confirmed Last Taken Omeprazole 40 mg PO DAILY 09/11/18 10/06/18 Unknown Previous Rx's Medication Instructions Recorded Last Taken Type Amoxicillin/K Clav Tab [Augmentin 1 tab PO Q12HR #10 tab 10/11/18 Unknown Rx 875 mg] Aspirin EC [Halfprin EC] 81 mg PO QDAY #30 tablet.dr 10/11/18 Unknown Rx Docusate Sodium [Colace CAP] 100 mg PO BID #30 capsule 10/11/18 Unknown Rx amLODIPine 10 mg PO DAILY #30 tablet 10/11/18 Unknown Rx bisacodyL [Dulcolax tab] 10 mg PO Q24H #14 tablet 10/11/18 Unknown Rx carvediloL [Coreg] 3.125 mg PO BID #60 tablet 10/11/18 Unknown Rx Furosemide [Lasix] 20 mg PO QDAY #7 tablet 06/06/20 Unknown Rx Potassium Chloride [K-Dur] 10 meq PO QDAY #7 tablet 06/06/20 Unknown Rx Amoxicillin [Trimox CAP] 500 mg PO Q8H #30 capsule 01/30/21 Unknown Rx Loratadine [Claritin] 10 mg PO DAILY #30 tablet 02/28/21 Unknown Rx Allergies Allergy/AdvReac Type Severity Reaction Status Date / Time ALEXIS Inhibitors Allergy Severe Angioedema Verified 01/30/21 11:37 lisinopril Allergy Severe Angioedema Verified 01/30/21 11:37 tramadol Allergy Hives Verified 01/30/21 11:37 ED Review of Systems ROS: Stated complaint: EARACHE Other details as noted in HPI Comment: All other systems reviewed and negative ED Past Medical Hx - Past Medical History Previous Medical History?: Yes Hx Hypertension: Yes Hx Congestive Heart Failure: No Hx Diabetes: No Hx Headaches / Migraines: Yes Hx Seizures: No (pt denies) Hx Asthma: No Hx COPD: No Additional medical history: chronic back pain - Surgical History Past Surgical History?: No - Social History Smoking Status: Never Smoker Substance Use Type: None - Medications Home Medications: Home Medications Medication Instructions Recorded Confirmed Last Taken Type Omeprazole 40 mg PO DAILY 09/11/18 10/06/18 Unknown History Amoxicillin/K Clav Tab [Augmentin 1 tab PO Q12HR #10 tab 10/11/18 Unknown Rx 875 mg] Aspirin EC [Halfprin EC] 81 mg PO QDAY #30 tablet. 10/11/18 Unknown Rx Docusate Sodium [Colace CAP] 100 mg PO BID #30 capsule 10/11/18 Unknown Rx amLODIPine 10 mg PO DAILY #30 tablet 10/11/18 Unknown Rx bisacodyL [Dulcolax tab] 10 mg PO Q24H #14 tablet 10/11/18 Unknown Rx carvediloL [Coreg] 3.125 mg PO BID #60 tablet 10/11/18 Unknown Rx Furosemide [Lasix] 20 mg PO QDAY #7 tablet 06/06/20 Unknown Rx Potassium Chloride [K-Dur] 10 meq PO QDAY #7 tablet 06/06/20 Unknown Rx Amoxicillin [Trimox CAP] 500 mg PO Q8H #30 capsule 01/30/21 Unknown Rx Loratadine [Claritin] 10 mg PO DAILY #30 tablet 02/28/21 Unknown Rx ED Physical Exam - General Limitations: No Limitations - Other Other exam information: General: No acute distress Head: Atraumatic Eyes: normal appearance ENT: No cerumen impaction. Fluid noted behind the right TM. Good light reflex no erythema. Left TM partially obstructed by a small amount of wax adjacent to the TM. No erythema noted at visualized portion of the TM Neck: Normal appearance, no midline tenderness Chest: Clear to auscultation bilaterally CV: Tachycardic regular rhythm Abdomen: Soft, normal bowel sounds, nontender, nondistended, no rebound or guarding Back: Normal inspection Extremity: Normal inspection, full range of motion Neuro: Alert O x 3, no facial asymmetry, speech clear, no gross motor sensory deficit Psych: Appropriate behavior Skin: No rash ED Course Vital Signs 02/28/21 21:09 Temperature 98.0 F Pulse Rate 120 H Respiratory 18 Rate Blood Pressure 141/93 O2 Sat by Pulse 95 Oximetry ED Medical Decision Making - Medical Decision Making 70-year-old female presents to the hospital complaining of decreased hearing in both ears right greater than left. Right ear does appear to have fluid behind the TM but good light reflex and no erythema. Antihistamine prescribed. Recurrent serous otitis media likely secondary to continued cigarette use. ENT referral provided. pt left prior to receiving script and d/c instructions Critical care attestation.: If time is entered above; I have spent that time in minutes in the direct care of this critically ill patient, excluding procedure time. ED Disposition Clinical Impression: Serous otitis media Disposition: HOME / SELF CARE / HOMELESS Is pt being admited?: No Does the pt Need Aspirin: No Condition: Stable Instructions: Otitis Media, Adult Additional Instructions: Diagnosis today is serous otitis media which means fluid in your ear. This may be causing your reduced hearing. Discharge diagnosis provided today include details regarding otitis media which is an ear infection. Your ear does not appear to be infected but you do appear to have fluid behind your eardrum. At this time we do not have a lot of wax. You have been provided an additional discharge instructions regarding your diagnosis and treatment below. Please note that smoking cigarettes can contribute to irritation and accumulation of fluid in your ear. You have been prescribed an antihistamine to aid in drainage of this fluid and ENT referral has been provided. If you develop fever or worsening ear pain please return to the ER for reevaluation causes of fluid accumulation in the ear Causes Anyone can get fluid in their ears, but it is much more likely to occur in children due to the anatomy of their auditory tube, which is smaller in diameter and more horizontal than the auditory tube of an adult. There are about 2.2 million cases of otitis media with effusion in the [place] each year, and about 90 out of 100 children will get fluid in their ears at some point before they reach 5 or 6 years old. All cases of fluid in the ear are caused by some form of auditory tube dysfunc tion which prevents your eustachian tube from adequately draining. Common causes for developing fluid in the ear for both adults and children include: Allergies[1] Any kind of congestion, from a cold virus, similar infection, or even Enlarged sinus tissue, nasal polyps, tonsils, and adenoids, or other growths which block the auditory tube (usually caused by chronic sinusitis) Exposure to chemical irritants, especially cigarette smoke Damage to the auditory tube from radiation for head and neck cancer or previous surgeries which may transect the auditory tube (rare) Barotrauma to the ears (rapid changes in ambient air pressure such as occur when flying in an airplane or scuba diving) Oral abnormalities that can be associated with Down syndrome or cleft palate Symptoms Symptoms of fluid in the ears can range in severity by individuals. In small children, the condition is often said to be symptomless, though it is more likely children of this age are just unable to express any discomfort. In the absence of severe ear pain, most symptoms go unnoticed by their caretakers. For most adults, experiencing fluid in the middle ear symptoms may be subtle, but some adults report constant ear pain and debilitating symptoms. Some adults and older children who have had persistent problems with chronic fluid in their ears can sometimes tell when the fluid has re-accumulated and they are in need of treatment. In general, symptoms of fluid in the ears may include: Ear pain Feeling like the ears are "plugged up" Increasing ear pain when changing altitude, and being unable to "pop" the ears TinnitusPronounce This (ringing in the ears) Hearing loss[2] or the sensation that sounds are muffled A feeling of fullness in the ears Loss of balance or vertigo (rare) Behavior problems Poor school performance related to hearing loss There are several conditions that cause similar symptoms to fluid in the ear or that may be present at the same time as fluid in the ear including: Middle ear infections Ear drainage Ear barotrauma Earache Diagnosis Because fluid in the ear is often asymptomatic, especially in children, it often goes undiagnosed. If your child has symptoms of fluid in the ear it is best to take them to a healthcare provider, cement storage worker, or an otolaryngologistPronounce This (ear, nose, throat specialist or ENT). A specialist may have access to better diagnostic equipment, but even more importantly their experience is necessary to recognize subtle clues that might mean you have fluid in your ears. Otoscopic Examination The best method for diagnosing fluid in the ear is an examination of the ear using an otoscope or otomicroscopePronounce This.[2] Your healthcare provider will most likely use an otoscope as these are more prevalent due to cost, although an otomicroscope may allow for more accurate diagnosis. Evaluating the ear with an otoscope is very simple and involves pulling back the ear and inserting the tip of the otoscope into the ear. This allows the healthcare provider to visualize the eardrum (tympanic membrane). Experienced physicians may actually see either a fluid level behind the eardrum, a bubble or that the eardrum is immobile. Unfortunately, it is not always so clear and the only thing indicating fluid in the ear might be a slight retraction of the eardrum or a slightly abnormal coloration. For this reason, it takes a skilled physician to diagnose fluid in the ear. Tympanometry Examination Fluid in the ear can be confirmed by another test called tympanometryPronounce This.[2] This test has some similarities to an exam using an otoscope in that the ear will be pulled back and the tip of the instrument, also called the speculum, will be placed in the outer portion of the ear canal. Your child (or you, if you're the patient) should try to hold very still during this test and avoid speaking or swallowing if possible. The instrument will measure the pressure inside of the ear, then generate a tone. The tympanic membrane will reflect a certain amount of sound back into the tympanometerPronounce This, which is charted on a graph called a tympanogram. If there is fluid in the ear, the tympanic membrane will stiffen and an abnormal amount of sound will be reflected. Treatment Typically, treatment is not necessary for fluid in the ears.[2] The fluid will usually drain on its own within a few weeks. However, if it does not, treatment will depend on several factors. If the fluid is present for 6 weeks, treatment may include a hearing test, a round of antibiotics, or further observation. If the fluid is present after 12 weeks, a hearing test should be performed.[2] If there is significant hearing loss, the healthcare provider may consider antibiotics or placing tubes in the ears. If the fluid is still present after 4 to 6 months, surgical placement of ear tubes is probably necessary even if you are not experiencing hearing loss. Adenoids may also need to be removed if they are large and causing significant blockage of the eustachian tube. Fluid in the ears can be present with or without an active infection. Antibiotics are of no use unless there is a current ear infection and will not be used.[2] While antihistamines are useful in helping prevent chronic sinusitis that may be impacting drainage of your auditory tube, antihistamines are not recommended for treatment of fluid in the ear. High-risk children, including those suffering from developmental delays, may require treatment earlier. For children who do not require treatment, managing s ymptoms and waiting for the fluid to clear up on its own may be the best thing to do. Even among children who require surgical intervention, full recovery is almost always achieved. Prevention These steps may be taken to prevent fluid in the ear: Avoid cigarette smoke. Avoid known allergens. If your child is in daycare, consider taking him out or switching to a smaller daycare if he gets fluid in his ears frequently. Wash your hands and your chris toys frequently. Avoid overusing antibiotics. Encourage if possible, even for just a few weeks. Infants who are breastfed get sick less often and are less likely to get ear infections even years later. Stay up to date on vaccines. The pneumococcal vaccine (Prevnar) helps prevent the most common type of ear infections and the flu vaccine may help as well.[2] Prescriptions: Loratadine [Claritin] 10 mg PO DAILY #30 tablet Referrals: ILENE JETER MD [Referring] - 3-5 Days IAN DEVLIN MD [Staff Physician] - 3-5 Days Time of Disposition: 22:00
== END 2021-02-28 21:40 | disposition home or self-care (01) ==
LOC: ED 20:59
DX: H65.93 Unspecified nonsuppurative otitis media, bilateral (principal); R51.9 Headache, unspecified; I10 Essential (primary) hypertension; G89.29 Other chronic pain; Z88.6 Allergy status to analgesic agent; Z88.8 Allergy status to other drugs, medicaments and biological substances; Z79.899 Other long term (current) drug therapy
CPT/HCPCS: 99281

== ENCOUNTER 2021-07-24 18:43 | Emergency (ER) | payer MEDICARE ==
--- NOTE | 2021-07-24 22:00 | Emergency Department Report ---
ED General Adult HPI - General Chief complaint: Skin/Abscess/Foreign Body Stated complaint: CYST Time Seen by Provider: 07/24/21 21:43 Source: patient Mode of arrival: Ambulatory Limitations: No Limitations - History of Present Illness Initial comments: Patient 70-year-old female who presents for vaginal swelling x3 days patient denies dysuria frequency urgency or hematuria. Is been no fevers no chills no back pain. No nausea no vomiting. Patient has primary care doctor requesting referral to [facility] doctor patient is not sexually active. - Related Data Home Medications Medication Instructions Recorded Confirmed Last Taken Omeprazole 40 mg PO DAILY 09/11/18 10/06/18 Unknown Previous Rx's Medication Instructions Recorded Last Taken Type Amoxicillin/K Clav Tab [Augmentin 1 tab PO Q12HR #10 tab 10/11/18 Unknown Rx 875 mg] Aspirin EC [Halfprin EC] 81 mg PO QDAY #30 tablet. 10/11/18 Unknown Rx Docusate Sodium [Colace CAP] 100 mg PO BID #30 capsule 10/11/18 Unknown Rx amLODIPine 10 mg PO DAILY #30 tablet 10/11/18 Unknown Rx bisacodyL [Dulcolax tab] 10 mg PO Q24H #14 tablet 10/11/18 Unknown Rx carvediloL [Coreg] 3.125 mg PO BID #60 tablet 10/11/18 Unknown Rx Furosemide [Lasix] 20 mg PO QDAY #7 tablet 06/06/20 Unknown Rx Potassium Chloride [K-Dur] 10 meq PO QDAY #7 tablet 06/06/20 Unknown Rx Amoxicillin [Trimox CAP] 500 mg PO Q8H #30 capsule 01/30/21 Unknown Rx Loratadine [Claritin] 10 mg PO DAILY #30 tablet 02/28/21 Unknown Rx Allergies Allergy/AdvReac Type Severity Reaction Status Date / Time ALEXIS Inhibitors Allergy Severe Angioedema Verified 01/30/21 11:37 lisinopril Allergy Severe Angioedema Verified 01/30/21 11:37 tramadol Allergy Hives Verified 01/30/21 11:37 ED Review of Systems ROS: Stated complaint: CYST Other details as noted in HPI Constitutional: denies: chills, fever Eyes: as per HPI ENT: denies: ear pain, throat pain Respiratory: denies: cough, shortness of breath, wheezing Cardiovascular: denies: chest pain, palpitations Endocrine: no symptoms reported Gastrointestinal: denies: abdominal pain, nausea, diarrhea Genitourinary: other (Vaginal swelling). denies: urgency, dysuria, frequency, hematuria, discharge Musculoskeletal: denies: back pain, joint swelling, arthralgia Skin: denies: rash, lesions Neurological: denies: headache, weakness, paresthesias Psychiatric: denies: anxiety, depression Hematological/Lymphatic: denies: easy bleeding, easy bruising ED Past Medical Hx - Past Medical History Hx Hypertension: Yes Hx Congestive Heart Failure: No Hx Diabetes: No Hx Headaches / Migraines: Yes Hx Seizures: No (pt denies) Hx Asthma: No Hx COPD: No Additional medical history: chronic back pain - Social History Smoking Status: Never Smoker Substance Use Type: None - Medications Home Medications: Home Medications Medication Instructions Recorded Confirmed Last Taken Type Omeprazole 40 mg PO DAILY 09/11/18 10/06/18 Unknown History Amoxicillin/K Clav Tab [Augmentin 1 tab PO Q12HR #10 tab 10/11/18 Unknown Rx 875 mg] Aspirin EC [Halfprin EC] 81 mg PO QDAY #30 tablet.dr 10/11/18 Unknown Rx Docusate Sodium [Colace CAP] 100 mg PO BID #30 capsule 10/11/18 Unknown Rx amLODIPine 10 mg PO DAILY #30 tablet 10/11/18 Unknown Rx bisacodyL [Dulcolax tab] 10 mg PO Q24H #14 tablet 10/11/18 Unknown Rx carvediloL [Coreg] 3.125 mg PO BID #60 tablet 10/11/18 Unknown Rx Furosemide [Lasix] 20 mg PO QDAY #7 tablet 06/06/20 Unknown Rx Potassium Chloride [K-Dur] 10 meq PO QDAY #7 tablet 06/06/20 Unknown Rx Amoxicillin [Trimox CAP] 500 mg PO Q8H #30 capsule 01/30/21 Unknown Rx Loratadine [Claritin] 10 mg PO DAILY #30 tablet 02/28/21 Unknown Rx ED Physical Exam - General Limitations: No Limitations General appearance: alert, in no apparent distress - Head Head exam: Present: atraumatic, normocephalic - Eye Eye exam: Present: normal appearance, EOMI Pupils: Present: normal accommodation - ENT ENT exam: Present: mucous membranes moist - Neck Neck exam: Present: normal inspection - Respiratory Respiratory exam: Present: normal lung sounds bilaterally. Absent: respiratory distress, wheezes, stridor - Cardiovascular Cardiovascular Exam: Present: regular rate, normal rhythm, normal heart sounds. Absent: systolic murmur, diastolic murmur, rubs, gallop - GI/Abdominal GI/Abdominal exam: Present: soft, normal bowel sounds. Absent: distended, tenderness, guarding, rebound, rigid, bruit, hernia - Rectal Rectal exam: Present: deferred - External exam: Present: other (Noted mild vaginal prolapse no drainage no bleeding no pelvic pain. No dysuria no frequency no discharge.) - Extremities Exam Extremities exam: Present: normal inspection, full ROM. Absent: tenderness - Back Exam Back exam: Present: normal inspection, full ROM. Absent: CVA tenderness (R), CVA tenderness (L) - Neurological Exam Neurological exam: Present: alert, oriented X3, CN II-XII intact, normal gait - Psychiatric Psychiatric exam: Present: normal affect, normal mood - Skin Skin exam: Present: warm, dry, intact, normal color. Absent: rash ED Course Vital Signs 07/24/21 07/24/21 19:27 19:28 Temperature 98.4 F Pulse Rate 93 H Respiratory 12 18 Rate Blood Pressure 138/102 O2 Sat by Pulse 91 98 Oximetry ED Medical Decision Making - Medical Decision Making This is straightforward vaginal prolapse. There is no fevers no chills no bleeding no vaginal pain. No CVA tenderness. As requested by patient will refer to [facility] for treatment options. Patient verbalizes agreement and understanding of discharge plan patient DC'd to home in stable condition at this time. Patient will follow up with [facility] tomorrow. Critical care attestation.: If time is entered above; I have spent that time in minutes in the direct care of this critically ill patient, excluding procedure time. ED Disposition Clinical Impression: Vaginal prolapse without uterine prolapse Disposition: 01 HOME / SELF CARE / HOMELESS Is pt being admited?: No Does the pt Need Aspirin: No Condition: Stable Instructions: Pelvic Organ Prolapse Additional Instructions: Follow-up with [facility] doctor tomorrow call for appointment. Return to emergency d epartment should symptoms worsen. Referrals: JERONIMO LEOS MD [Staff Physician] - 3-5 Days Time of Disposition: 22:01
[2021-07-24 23:11] VITALS: BP 155/92
== END 2021-07-24 22:15 | disposition home or self-care (01) ==
LOC: ED 18:43
DX: N81.10 Cystocele, unspecified (principal); I10 Essential (primary) hypertension; G43.909 Migraine, unspecified, not intractable, without status migrainosus; Z88.8 Allergy status to other drugs, medicaments and biological substances; Z91.09 Other allergy status, other than to drugs and biological substances; Z79.899 Other long term (current) drug therapy
CPT/HCPCS: 99282; 99283